=== PATIENT | female | born 1955 | race Caucasian/White ===

== ENCOUNTER 2022-07-15 07:26 | Outpatient (CLI) | payer MEDICARE, SELFPAY ==
--- NOTE | 2022-08-07 20:41 | WPDSLEEPSTUD ---
Sleep Study Date of Study: 07/15/22 Ordering Provider: Vanessa Patterson MD Interpreting Physician: Meghana Mitchell DO Sleep Study Type: Split Polysomnogram Height: 1.57 m Weight: 66.678 kg Body Mass Index: 26.9 Neck Circumference (inches): 14 [place]: 2 Reason for Sleep Study Loud snoring Sleep History The patient is a 67-year-old female with GERD, hypothyroidism, migraine, hyperlipidemia, chronic back pain, osteopenia and history of tobacco use that had a sleep study ordered by her primary care physician for evaluation of sleep apnea. The patient is currently retired. She rarely awakens from sleep short breath. She rarely awakens at night with heartburn, belching or cough. She constantly snores loud in others complain. She occasionally has trouble sleeping when she has a cold. She rarely wakes up gasping for air throughout the night. She frequently has breathing problems at night observed by herself or others. She occasionally sweats excessively at night. She rarely falls asleep during the day and never while driving. She denies having sleep paralysis. She rarely experiences loss of muscle tone when extremely emotional. She denies having trouble at school or work due to sleepiness. She rarely experiences vivid dreamlike scenes upon awakening or falling asleep. He denies feeling afraid of going to sleep. She occasionally has nightmares. She occasionally remembers her dreams. She constantly has thoughts racing through her mind. She rarely feels sad or depressed. She frequently has anxiety. She occasionally has muscular tension. She occasionally notices parts of her body jerk. She constantly kicks during the night. She frequently has crawling and aching feelings in her legs and occasionally has leg pain during the night. She occasionally grinds her teeth during sleep and frequently awakens with morning jaw pain. She is constantly bothered by pain during the day but rarely awakened by pain during the night. She constantly wakes up feeling stiff in the morning. She constantly wakes up with sore or achy muscles. He constantly wakes up with pain in the neck, spine or other joints. She goes to bed at 9:00 p.m. on both weekdays and weekends. It takes her 6-7 hours to fall asleep. She rarely wakes up throughout the night. If she awakens, she will use the restroom and is able to fall back asleep within a few minutes. She wakes up between 9-10 a.m. on both weekdays and weekends. She typically gets 6 hours of sleep or less per night. She will stay in bed for a few minutes after waking up in the morning. She currently lives with her significant other. She does not consume any caffeinated beverages within 2 hours of bedtime. She does not engage in physical exercise before bedtime. She will watch television before falling asleep. She denies taking naps in the afternoon or the evening. She drinks 1 cup of caffeinated beverage per day. She quit smoking cigarettes 4 years ago. She rarely drinks alcohol. She denies recreational drug use. FORMERLY [facility] Past Medical History Medical History Anemia Chronic bilateral low back pain with bilateral sciatica Gastroesophageal reflux disease without esophagitis Hypothyroidism Migraine Mixed hyperlipidemia Osteopenia Overweight (BMI 25.0-29.9) Surgical History Surgical History H/O dilation and curettage (~1978) History of tonsillectomy (~1972) Family History Family History Mother Patient's mother is , Onset Age: 35 Father Patient's father is in good health Sibling Patient's sister is in good health Patient's brother is , Onset Age: 30 Social History Social History Smoking status: Former smoker Second cornejo
[2022-08-07 20:46] VITALS: BMI 26.9
== END 2022-07-16 08:11 | disposition home or self-care (01) ==
PROVIDERS: PCP Family Medicine; Visit Provider Family Medicine
DX: G47.30 Sleep apnea, unspecified (principal); G25.81 Restless legs syndrome; G47.33 Obstructive sleep apnea (adult) (pediatric)
CPT/HCPCS: 95811

== ENCOUNTER 2022-09-02 14:45 | Outpatient (CLI) | payer MEDICARE, SELFPAY ==
--- NOTE | ~2022-09-02 | MM_ITS ---
EXAMINATION: MM screening macey BI w terri HISTORY: Screening TECHNIQUE: Craniocaudal and mediolateral oblique 3-D tomosynthesis images were obtained and synthetic 2-D images were generated. CAD analysis was submitted and interpreted. COMPARISON: Comparison to multiple prior studies sequentially, with oldest reviewed study dated 11/14. BREAST PARENCHYMAL COMPOSITION: The breasts are almost entirely fatty. FINDINGS: There is no evidence of suspicious mass, calcification, or architectural distortion to sugg est malignancy in either breast. There has been no suspicious interval change. IMPRESSION: 1. No mammographic evidence of malignancy. 2. Recommend routine screening mammography in one year. BI-RADS Category 1: Negative Reviewed, dictated and finalized at location B. NT ONBOARDING ANALYST
== END 2022-09-02 14:46 | disposition home or self-care (01) ==
LOC: ANHIMG 14:47
PROVIDERS: PCP Family Medicine; Visit Provider Family Medicine
DX: Z12.31 Encounter for screening mammogram for malignant neoplasm of breast (principal)
CPT/HCPCS: 77063; 77067

== ENCOUNTER 2023-01-09 15:01 | Outpatient (CLI) | payer MEDICARE, SELFPAY ==
--- NOTE | ~2023-01-09 | XR_ITS ---
EXAMINATION: XR wrist LT min 3V DATE: 01/09/2023 15:51 INDICATION: Localized swelling, mass and lump, left wrist. TECHNIQUE: 4 views of left wrist were obtained. COMPARISON: None. FINDINGS: Bone alignment is normal. No fracture. Joint spaces are normal. IMPRESSION: 1. Normal left wrist. Reviewed, dictated and finalized at location A. IMPRESSION: 1. Normal left wrist.
--- NOTE | ~2023-01-09 | US_ITS ---
EXAMINATION: US carotid duplex BI DATE: 01/09/2023 15:51 INDICATION: Mixed hyperlipidemia TECHNIQUE: Grayscale, color Doppler, and pulsed Doppler images of the cervical carotid arteries were obtained. The degree of vessel stenosis is placed in one of the following categories: normal, <50%, 5 0-69%, >=70% but less than near-occlusion, near-occlusion, or total occlusion. Note that percent sten osis relative to normal distal artery lumen diameter is indirectly measured from velocity measurement s as described by Ross, et al. Radiology 2003; 229:340-346. COMPARISON: None. FINDINGS: RIGHT: The right common carotid artery (CCA) peak systolic velocity (PSV) is 109 cm/s. The right internal ca rotid artery (ICA) PSV is 123 cm/s. The right ICA end-diastolic velocity (EDV) is 29 cm/s. The right ICA/CCA PSV ratio is 1.1. Grayscale and color Doppler images yield an estimate of <50% diameter reduc tion from plaque in the ICA. The external carotid artery (ECA) PSV is 144 cm/s. There is antegrade fl ow in the right vertebral artery. LEFT: The left CCA PSV is 137 cm/s. The left ICA PSV is 77 cm/s. The left ICA EDV is 17 cm/s. The left ICA/ CCA PSV ratio is 0.7. Grayscale and color Doppler images yield an estimate of <50% diameter reduction from plaque in the ICA. The ECA PSV is 124 cm/s. There is antegrade flow in the left vertebral arter y. IMPRESSION: 1. <50% stenosis in the right internal carotid artery. 2. <50% stenosis in the left internal carotid artery. Reviewed, dictated and finalized at location A.
--- NOTE | ~2023-01-09 | XR_ITS ---
EXAMINATION: XR wrist RT min 3V DATE: 01/09/2023 15:51 INDICATION: Localized swelling, mass and lump, right wrist. TECHNIQUE: 4 views of right wrist were obtained. COMPARISON: None. FINDINGS: Bone alignment is normal. No fracture. There is mild osteoarthritis of first carpometacarpa l joint. IMPRESSION: 1. Mild osteoarthritis of first carpometacarpal joint. Reviewed, dictated and finalized at location A.
--- NOTE | 2023-01-09 15:55 | ECG_ITS ---
Measurements Intervals [place] Rate: 72 P: 51 RI: 159 QRS: 31 QRSD: 81 T: 38 QT: 380 QTc: 419 Interpretive Statements SINUS RHYTHM NORMAL ECG NO PREVIOUS ECG AVAILABLE FOR COMPARISON Electronically Signed On 01-10-2023 14:34:00 CDT by Minesh Reaves M.D.
== END 2023-01-09 15:02 | disposition home or self-care (01) ==
PROVIDERS: PCP Family Medicine; Visit Provider Family Medicine
DX: E78.2 Mixed hyperlipidemia (principal); Z82.49 Family history of ischemic heart disease and other diseases of the circulatory system; R22.30 Localized swelling, mass and lump, unspecified upper limb; Z82.3 Family history of stroke; R20.8 Other disturbances of skin sensation
CPT/HCPCS: 73110; 93005; 93880

== ENCOUNTER 2023-02-20 01:14 | Day surgery (SDC) | payer MEDICARE, SELFPAY ==
[2023-02-08 14:29] VITALS: BMI 27.5
--- NOTE | 2023-02-19 19:04 | PM.HPGS ---
History of Present Illness History of Present Illness Consent: Risks, benefits, and alternatives have been discussed and questions answered. Patient agrees to proceed with procedure. Chief complaint: neoplasm screening Narrative: Mami Richard is a 67 year old female who has noticed occasionally food getting hung up on the way down.? This mostly occurs with meat.? She will drink some liquid and it will force it down.? She has not had actually stop eating for a significant amount of time because of that . She is also due for colon cancer screening. Review of Systems Review of Systems: All systems reviewed & are unremarkable except as noted in HPI and below PMFSH Past Medical History Medical History Anemia Chronic bilateral low back pain with bilateral sciatica Gastroesophageal reflux disease without esophagitis Hypothyroidism Migraine Mixed hyperlipidemia Osteopenia Overweight (BMI 25.0-29.9) Surgical History Surgical History H/O dilation and curettage (~1978) History of tonsillectomy (~1972) Family History Family History Mother Patient's mother is , Onset Age: 35 Father Patient's father is in good health Sibling Patient's sister is in good health Patient's brother is , Onset Age: 30 Social History Social History Years smoked: 42 Smoking status: Former smoker Tobacco type: cigarettes Second hand tobacco smoke exposure: No Smoking end date: 09/18/17 Alcohol intake: never Alcohol use details: 1 drink yearly Substance use: never Substance use type: does not use Lack of Transportation: No Lack of Food: Never True Current Housing: I Have Housing Concerned About Future Housing: No Difficulty Paying Gas/Electric Bills: No Difficulty Paying for Meds: No Currently Unemployed: No Education: High School Diploma/GED Difficulty w/ Childcare or Family Care: No Living arrangements: alone Occupation/Education: retired Gender identity (if verbalized by the patient): Female Spiritual care concerns: No Agree to blood products: Yes Meds Home Medications and Allergies Home Medications Medication Instructions Recorded Confirmed Type levothyroxine 100 mcg tablet 100 mcg PO DAILY 09/03/19 02/08/23 History aspirin 81 mg tablet,delayed 81 mg PO DAILY 06/21/22 02/08/23 History release ergocalciferol (vitamin D2) 1,250 1,250 mcg PO WEEKLY #12 caps 06/22/22 02/08/23 Rx mcg (50,000 unit) capsule (Vitamin D2) ketoconazole 2 % shampoo 1 applic topical 2XW #120 mL 01/03/23 02/08/23 Rx Allergies Allergy/AdvReac Type Severity Reaction Status Date / Time No Known Allergies Allergy Unknown Verified 02/20/23 07:27 Exam Const: General: alert Orientation/consciousness: patient oriented x3 Resp: Auscultation: clear to auscultation bilaterally Cardio: Rhythm: regular rhythm GI: GI Palp: Yes Soft to palpation and No Tenderness to palpation present (GI) Neuro: General: patient oriented x3 Assessment and Plan Assessment and plan (1) Dysphagia: Code(s): R13.10 - Dysphagia, unspecified Status: Acute Assessment and Plan: EGD with possible biopsy or dilatation or cautery. (2) Encounter for screening colonoscopy: Code(s): Z12.11 - Encounter for screening for malignant neoplasm of colon Status: Acute Assessment and Plan: Colonoscopy with possible biopsy or polypectomy or cautery or injection of substances.
[2023-02-20 07:28] VITALS: BP 125/53; PULSE 78; RESP 18; TEMP 36.5; O2SAT 99
[2023-02-20] MEDS: LACTATED RINGERS 1,000 ML 150 ML IV CONT (07:36)
--- NOTE | 2023-02-20 08:30 | SUR.OPER ---
EGD: [id number] COLON: [id number]
[2023-02-20] MEDS: SIMETHICONE ORAL SUSPENSION 20 MG/0.3 ML 30 ML BOTTLE 0.6 ML IRRIGATION (08:44)
[2023-02-20 08:53] VITALS: BP 100/60; PULSE 86; RESP 24; O2SAT 99
[2023-02-20 09:03] VITALS: BP 102/42; PULSE 68; RESP 20; O2SAT 99
[2023-02-20 09:13] VITALS: BP 114/72; PULSE 65; RESP 15; O2SAT 96
--- NOTE | 2023-02-20 11:50 | SUR.PREOP ---
Spoke with Cary in [facility]'s office, states that Mami does have pre approval for the EGD and is okay to proceed with procedure.
== END 2023-02-20 09:23 | disposition home or self-care (01) ==
PROVIDERS: PCP Family Medicine; Visit Provider Internal Medicine Gastroenterology
PROC: 0DJD8ZZ Inspection of Lower Intestinal Tract, Via Natural or Artificial Opening Endoscopic (ICD-10-PCS; CPT 45378; principal; 2023-02-20 08:30)
DX: Z12.11 Encounter for screening for malignant neoplasm of colon (principal); D12.5 Benign neoplasm of sigmoid colon; K57.30 Diverticulosis of large intestine without perforation or abscess without bleeding; K64.8 Other hemorrhoids; R13.10 Dysphagia, unspecified; K21.9 Gastro-esophageal reflux disease without esophagitis; K29.60 Other gastritis without bleeding; E03.9 Hypothyroidism, unspecified; M85.80 Other specified disorders of bone density and structure, unspecified site
CPT/HCPCS: 45385; 43239; 87081; 88305; J2704; J7120

== ENCOUNTER 2023-09-08 08:44 | Outpatient (CLI) | payer MEDICARE, SELFPAY ==
[2023-09-08 09:35] LABS: Basophils Percent Auto 0.5 % (0.2-1.2); Eosinophils Absolute Auto 0.2 K/mm3 (0-0.3); Eosinophils Percent Auto 2.6 % (0-4.4); Hematocrit 45.2 % (37.0-47.0); Hemoglobin 15.2 g/dL (12.0-15.0); Immature Granulocyte Absolute 0.04 K/mm3 (0.00-0.031); Immature Granulocyte Percent A 0.5 % (0-0.5); Lymphocytes Absolute Auto 2.71 K/mm3 (0.9-3.2); Lymphocytes Percent Auto 33.5 % (18.3-44.2); Mean Corpuscular HGB Conc 33.6 g/dl (32-36); Mean Corpuscular Hemoglobin 30.6 pg (26-34); Mean Corpuscular Volume 91.1 fl (80-100); Mean Platelet Volume 10.2 fl (7.4-10.4); Monocytes Absolute Auto 0.6 K/mm3 (0.1-0.6); Monocytes Percent Auto 7.2 % (2.6-8.5); Neutrophils Absolute Auto 4.5 K/mm3 (1.3-6.7); Neutrophils Percent Auto 55.7 % (45.5-73.1); Platelet Count Result 267 k/mm3 (150-375); Red Blood Count 4.96 M/mm3 (4.2-5.4); Red Cell Distribution Width 13.1 % (11.5-14.5); White Blood Count 8.1 K/mm3 (4.5-10.0)
[2023-09-08 09:45] LABS: Alanine Aminotransferase 48 U/L (6-35); Albumin Level 4.7 g/dL (3.5-5.1); Alkaline Phosphatase 76 U/L (38-126); Anion Gap 10 mmol/L (8-16); Aspartate Amino Transferase 32 U/L (14-36); Bilirubin,Total 0.5 mg/dL (0.2-1.3); Blood Urea Nitrogen 10 mg/dL (7-17); Calcium 9.6 mg/dL (8.4-10.2); Carbon Dioxide 25 mmol/L (22-30); Chloride 105 mmol/L (98-107); Cholesterol 246 mg/dL (0-200); Estimated Glomerular Filt Rate > 60; Glucose 101 mg/dL (65-110); HDL Direct 39 mg/dL; Potassium 4.7 mmol/L (3.4-5.0); Sodium 140 mmol/L (137-145); Triglycerides 280 mg/dL (<150)
[2023-09-08 09:56] LABS: LDL Cholesterol Direct 145 mg/dL
[2023-09-08 10:49] LABS: Vitamin D 25 Hydroxy 20.6 ng/mL
[2023-09-08 11:03] LABS: Thyroid Stimulating Hormone Reflex 0.221 uIU/mL (0.465-4.68)
[2023-09-08 13:16] LABS: Free T4 Free Thyroxine Reflex 1.43 ng/dL (0.78-2.19)
[2023-09-08 14:06] LABS: Total Triiodothyronine (T3) 1.88 NG/ML (0.97-1.69)
== END 2023-09-08 08:45 | disposition home or self-care (01) ==
LOC: ANHLAB 08:45
PROVIDERS: PCP Family Medicine; Visit Provider Family Medicine
DX: E78.2 Mixed hyperlipidemia (principal); E03.9 Hypothyroidism, unspecified; R53.83 Other fatigue; E55.9 Vitamin D deficiency, unspecified; E53.8 Deficiency of other specified B group vitamins
CPT/HCPCS: 36415; 80053; 80061; 82306; 82607; 84439; 84443; 84480; 85025

== ENCOUNTER 2023-09-14 14:25 | Outpatient (CLI) | payer MEDICARE, SELFPAY ==
--- NOTE | ~2023-09-14 | MM_ITS ---
EXAMINATION: MM screening macey BI w terri HISTORY: Screening mammogram TECHNIQUE: Craniocaudal and mediolateral oblique 3-D tomosynthesis images were obtained and synthetic 2-D images were generated. CAD analysis was submitted and interpreted. COMPARISON: 09/02/2022, 10/07/2019 bilateral screening mammogram examinations BREAST PARENCHYMAL COMPOSITION: The breasts are almost entirely fatty. FINDINGS: There is no evidence of suspicious mass, calcification, or architectural distortion to sugg est malignancy in either breast. There has been no suspicious interval change. IMPRESSION: 1. No mammographic evidence of malignancy. 2. Recommend routine screening mammography in one year. BI-RADS Category 1: Negative Reviewed, dictated and finalized at location A. COMMENTATOR
== END 2023-09-14 14:26 | disposition home or self-care (01) ==
LOC: ANHIMG 14:26
PROVIDERS: PCP Family Medicine; Visit Provider Family Medicine
DX: Z12.31 Encounter for screening mammogram for malignant neoplasm of breast (principal)
CPT/HCPCS: 77063; 77067

== ENCOUNTER 2024-03-14 08:02 | Outpatient (CLI) | payer MEDICARE, SELFPAY ==
--- NOTE | ~2024-03-14 | CT_ITS ---
EXAMINATION:CT lung screening DATE: 03/14/2024 08:28 INDICATION: Personal history of nicotine dependence. Smoker who quit 15 years ago with 86 pack year h istory. TECHNIQUE: Computed tomography (CT) of the chest was performed without intravenous contrast. Automate d exposure control and iterative reconstruction technique were employed. The dose-length product (DLP ) was 113.00 mGy-cm. COMPARISON: CT abdomen 06/23/2008 FINDINGS: There is moderate emphysema. There is mild atelectasis bilaterally. There is a 4 mm nodule in left lower lobe, stable from 06/23/2008. Calcified left lung nodules are consistent with old granul omas disease. No pleural effusion. The heart size is normal. There are coronary artery calcifications . No pericardial effusion. There is diffuse hepatic steatosis. Calcifications in the spleen are consi stent with old granulomatous disease. There are changes of anterior fusion procedure in cervical spin e. There is moderate thoracic spondylosis. IMPRESSION: 1. Lung-RADS category 2: Benign appearance or behavior. Continue annual screening with noncontrast lo w-dose chest CT in 12 months. Reviewed, dictated and finalized at location A. IMPRESSION: 1. Lung-RADS category 2: Benign appearance or behavior. Continue annual screeni ng with noncontrast low-dose chest CT in 12 months.
== END 2024-03-14 08:03 | disposition home or self-care (01) ==
PROVIDERS: PCP Family Medicine; Visit Provider Family Medicine
DX: Z12.2 Encounter for screening for malignant neoplasm of respiratory organs (principal); Z87.891 Personal history of nicotine dependence
CPT/HCPCS: 71271

== ENCOUNTER 2024-07-10 14:36 | Outpatient (CLI) | payer MEDICARE, SELFPAY ==
--- NOTE | ~2024-07-10 | DEXA_ITS ---
Bone Density Report Name: JENNIFER GUTIERRES Age: 69 Sex: Female Ethnicity: White Date of : 1955 Indication: osteopenia; prior fracture; Referring Provider: RORY KIMBROUGH Study: Bone densitometry was performed. Exam Date: July 10, 2024 Accession number: [id number] Bone Density: Region BMD T-score Z-score Classification AP Spine(L1, L2) 0.940 -0.4 1.4 Normal Femoral Neck (Left) 0.627 -2.0 -0.4 Osteopenia Total Hip (Left) 0.790 -1.2 0.1 Osteopenia Femoral Neck (Right) 0.629 -2.0 -0.3 Osteopenia Total Hip (Right) 0.787 -1.3 0.1 Osteopenia Total Hip Mean 0.788 -1.3 0.1 Osteopenia World Health Organization criteria for BMD impression classify patients as: Normal (T-score at or above -1.0), Osteopenia (T-score between -1.0 and -2.5), or Osteoporosis (T-score at or below -2.5). 10-year Fracture Risk: FRAX not reported because: Prior hip or vertebral fracture Previous Exams: Region Exam Age BMD T-score BMD Change BMD Change Date g/cm2 vs Baseline vs Previous AP Spine (L1-L2) 07/10/2024 69 0.940 -0.4 -0.016 (-1.7%) 0.105 (12.5%)* 10/11/2019 64 0.835 -1.3 -0.121 (-12.6% -0.121 (-12.6% 08/08/2016 61 0.956 -0.2 Total Hip(Left) 07/10/2024 69 0.790 -1.2 -0.036 (-4.4%) -0.036 (-4.4%) 10/11/2019 64 0.826 -0.9 0.000 (0.0%) 0.000 (0.0%) 08/08/2016 61 0.826 -0.9 Total Hip(Right) 07/10/2024 69 0.787 -1.3 -0.040 (-4.8%) -0.001 (-0.2%) 10/11/2019 64 0.788 -1.3 -0.038 (-4.6%) -0.038 (-4.6%) 08/08/2016 61 0.827 -0.9 *Denotes significance at 95% confidence level, LSC for AP Spine = 0.022 g/cm2, LSC for Total Hip = 0.027 g/cm2 Clinical Information Provided by Patient: Have had a previous hip or vertebral fracture Has had a low trauma fracture Patient maximum height was 63.0 Menopause Age: 42 Does not regularly consume dairy products Drinks caffeinated beverages Onset of menses at age 16 Number of children 3 Impression: The patient has low bone mass, based on the Left Femoral Neck T-score. The patient has risk factors, including: previous fracture. The BMD for the Total Hip(Left) decreased, changing by -4.4% since the last DXA exam. Discussion: INCREASED RISK OF FRACTURE DUE TO HISTORY OF FRACTURE. The patient's previous fracture puts the patient at high risk of a future fracture. In untreated patients, the risk of osteoporotic fracture increases approximately two-fold for each 1.0 SD decrease in T-score. Low bone density is not the only risk factor for fracture; also consider factors such as patient's age, frailty or poor health, risk of falling, risk of injury, previous osteoporotic fracture, family history of osteoporosis, cigarette smoking, low body weight, etc. Not everyone with a low trauma fracture has osteoporosis; osteomalacia and other metabolic bone disorders should also be considered. Patients who have osteoporosis should be evaluated for specific diseases and conditions (secondary causes) that may cause or contribute to bone loss and fracture risk. National Osteoporosis Foundation (NOF) recommends pharmacologic intervention for patients with a prior hip or vertebral fracture regardless of BMD T-score. The patient should follow a healthful lifestyle (good nutrition with adequate calcium and vitamin D, and appropriate weight-bearing exercise). Follow-Up: Consider a repeat BMD and Vertebral Fracture Assessment (VFA) exam in 2 years or sooner if medically necessary, to reassess this patient's status. Reported by: DESTINI on 07/10/2024 3:11:00 PM. Reviewed, dictated and finalized at location AJolly SARAH
== END 2024-07-10 14:37 | disposition home or self-care (01) ==
LOC: ANHIMG 14:39
PROVIDERS: PCP Family Medicine; Visit Provider Family Medicine
DX: Z78.0 Asymptomatic menopausal state (principal); M85.852 Other specified disorders of bone density and structure, left thigh; M85.851 Other specified disorders of bone density and structure, right thigh
CPT/HCPCS: 77080

== ENCOUNTER 2024-08-30 11:37 | Outpatient (CLI) | payer MEDICARE, SELFPAY ==
[2024-08-30 12:40] LABS: Alanine Aminotransferase 37 U/L (6-35); Albumin Level 4.7 g/dL (3.5-5.1); Alkaline Phosphatase 68 U/L (38-126); Anion Gap 5 mmol/L (4-12); Aspartate Amino Transferase 31 U/L (14-36); Bilirubin,Total 0.5 mg/dL (0.2-1.3); Blood Urea Nitrogen 10 mg/dL (7-17); Calcium 9.5 mg/dL (8.4-10.2); Carbon Dioxide 29 mmol/L (22-30); Chloride 106 mmol/L (98-107); Cholesterol 234 mg/dL (0-200); Estimated Glomerular Filt Rate > 60; Glucose 95 mg/dL (65-110); HDL Direct 29 mg/dL; Potassium 4.2 mmol/L (3.4-5.0); Sodium 140 mmol/L (137-145); Triglycerides 233 mg/dL (<150)
--- OUTSIDE RECORDS SUMMARY | 2024-08-30 12:43 | XMS_ITS | Data Portability ---
Author Organization [facility] [place] Address [address] [place] [address] Care Team Providers Care Husbandry Person Name Role Phone KAYLANRORY Primary Care Provider Assessment Encounter Date Assessment Date Assessment LastModified by Organization Details LastModified Time 04/15/2021 04/15/2021 Time spent in visit is a total of 15 mins with at least 50% of visit consisting of counseling and review of plan of care. Additional precautionary measures were taken to minimize potential exposure to the Covid-19 virus during this patient? s visit, including available hand manager science upon arrive, temperature check and being asked a series of screening questions. All staff wore face coverings during this encounter, as well as provided additional cleaning and sanitizing of all surfaces, including countertops, pens, chairs, door handles, light switches, etc, prior to and following the patient? s visit. [email or web address] Not available 04/27/2021 16:09:21 Plan of Treatment Reminders Order Date Submit Date Provider Last Modified By Organization Details Last Modified Time Details Appointments None recorded. Lab None recorded. Referral gynecologis t referral - Please reach out to patient to schedule her for an appt, she is expecting the call. Please find attached her demographic s and office visit notes. If you have any questions or require further information , please contact me at [phone]. Thank you, SRI Mendez 2020 021 [email or web address] Crystal Haskins MD - [facility], [address] [facility], [address], [place], [address], 2 13:56:49 Procedures None recorded. Surgeries None recorded. Imaging None recorded. Medication Orders Estrace 0.01% (0.1 mg/gram) vaginal cream [address] [facility], [address] [place], [address], 13:40:43 nystatin-tr iamcinolone 100,000 unit/gram-0 .1 % topical ointment [address] [facility], [facility] [place], [address], 13:41:09 nystatin-tr iamcinolone 100,000 unit/gram-0 .1 % topical ointment 2019 [facility], [address] [place] [address], [address], 1 13:42:55 Estrace 0.01% (0.1 mg/gram) vaginal cream 2020 [facility] [address], [address] [place] [address], [address], 14:12:36 nystatin-tr iamcinolone 100,000 unit/gram-0 .1 % topical ointment 2020 [facility] [address], [address] [place] [address], [address], 14:12:33 Patient TargetsNo targets recorded. Patient InstructionsNo instructions recorded. Reason for Referral Clinical Nursing Manager Referral for Ge nital lichen sclerosus Lichen Sclerosis Please reach out to patient to schedule her for an appt, she is expecting the call. Please find attached her demographics and office visit notes. If you have any questions or require further information, please contact me at [phone]. Thank you, SRI Mendez Referring Physician: Iman Pond, FLUX PLANT OPERATOR, Encounter Date: 08/30/2021 Results Created Date Observation Date Name Description Value Unit Range Abnormal Flag Note LastModifiedBy Organization Detail LastModifiedTime 04/27/20 20 04/29/2020 pap, LB Pap test thin prep Negati ve for Intrae pithel ial Lesion or Malign richy normal ACCES SANJU #: [id number] Sourc e: Cervi stephen/E ndoce rvica l LMP: 09/18 Date Taken : 04/27 Speci men Type: ThinP rep Vial Date Repor rosa: 2019 Clini stephen Data: Cytot ech: Rachelle Miller ingrid CT( CP) Date Repor rosa: 2019 Speci men Adequ acy: Satis facto ry for evalu ation Gener al Categ oriza tion: NEGAT KAYLYN FOR INTRA EPITH ELIAL LESIO N OR MALIG ALEX Inter preta tion/ Resul t: Atrop hy The follo wing tests have been order ed as reque sted and a separ ate repor t will be issue d: Vagin itis Panel This speci men has been sherrie zed by the ThinP rep Imagi ng Syste m, an inter activ e compu ter syste m which ari ts the lab in the scree kanwal of ThinP rep Pap Test slide s. Follo wing imagi ng, the slide was revie wed by a Cytot echno logis t and/o r Patho logis t. D N A A S S A Y S R E P O R T TEST NAME RESUL TS ----- ---- ----- -- HPV High Risk Scree n (TMA) ThinP rep Vial The human papil lomav irus (HPV) High Risk Scree n is an FDA-a pprov ed in-vi tro ampli fied nucle ic acid test for the quali tativ e detec tion of E6/E7 viral mRNA. Resul ts shoul d be corre lated with patie nt prese ntati on, histo ry, cervi stephen cytol ogy and other clini stephen and labor atory findi ngs. See https ://Partnerbyte/s ites/ defau lt/fi les/2 018-0 3- [id number] _002_ 01.pd f for [facility] er infor luis carlos n. Test perfo rmed by [employer], d/b/a [facility] rou, [address], [place] [address] , Faustino Jackson ra, , Labor atory Direc tor. HPV High Risk *HPV NOT DETEC ROSA (TYPE S 16, 18, 31, 33, 35, 39, 45, 51, 52, 56, 58, 59, 66, 68) *HPV: The human papil lomav irus (HPV) High Risk Blayne madrigal is an FDA-a pprov ed in-vi tro ampli fied nucle ic acid test for the quali tativ e detec tion of E6/E7 viral mRNA. [facility] shoolegario d be corre lated with patie nt prese ntati on, histo ry, cervi stephen cytol ogy and other clini stephen and labor atory findi ngs. See https ://Partnerbyte/s ites/ defau lt/fi -0 3/- [id number] _002_ 01.pd f for [facility] er infor luis carlos n. Test perfo rmed by [employer], d/b/a [facility], [address], [place] [address] , Faustino Jackson ra, DO, Labor atory Dire tor. End of Repor t Techn ical servi celso provi ded by [employer], d/b/a [facility], [address] [place] [address] Jason Alvarez MD, Labor Huitongda Dire tor. Case revie wed and diagn osis rende red at [employer], d/b/a [facility], [address] [place] [address] Jason Alvarez MD, Labor atory Direc tor. CONFI DENTI AL Not Available [facility]) [address] [facility] [address], [place], [address], 04/29/2020 19:22:22 04/27/20 20 04/29/2020 bacte rial vagin osis + vagin itis panel , vagin al chadd sp. Not Detect ed normal Trich omona s vagin chelo: DNA testi ng perfo rmed by Trans cript ion Media rosa Ampli ficat ion (TMA) These resul ts shoul d be inter prete d in light of all clini stephen and labor atory findi ngs. This assay is highl y accur ate, but rare false posit kaylyn and negat kaylyn resul ts may occur . Posit kaylyn resul ts in low preva lence popul ation s may requi re re-ev aluat ion. A negat kaylyn resul t does not precl ude a possi ble infec tion due to a speci men inade quacy or sampl ing error . Test perfo rmed by [facility], d/b/a Path kyle, [address] [facility] [address], [place] [address] , Faustino Jackson ra, DO, Labor atory Direc tor. Rosaleen chicoll a vagin chelo, Dasha da speci es: Genom ic DNA is isola rosa from patie nt speci mens by stand sara labor atory techn iques and sherrie zed using custo m OpenA rray plate s, perfo rmed on the Quant Studi o 12K Flex Real Time PCR syste m. A posit kaylyn resul t is provi ded for patho genic bacte asia, virus and/o r funga l speci es based on detec tion of ampli ficat ion produ cts. Carole l vagin al chelsey resul ts of Carole l or Ogema rosa are deter mined by calcu latin g the ratio of the organ ism to the total bacte asia prese nt in the speci men, and ivan ring that ratio to a PathG roup patie nt popul ation . Overa ll resul ts of Carole l, Borde rline and Abnor mal are deter mined using a proba bilit y model which was devel oped by an exten sive sherrie sis and integ ratio n of clini stephen thres holds for marke r organ isms on a large set of sympt omati c & asymp tomat ic speci mens. Patie nt popul ation s with diffe rent demog raphi cs from the PathG rou model popul ation may have diffe rent indic ator organ isms with diffe rent relat kaylyn ratio s, which would influ ence the final resul ts. Resul ts shoul d be inter prete d in the samreen xt of all clini stephen and labor atory findi ngs. The test was devel oped and its perfo rmanc e libby cteri stics deter mined by [employer], [employer] d/b/a [employer]. It has not been clear ed or appro kwaku by the U.S. Food and Drug Admin istra tion. The FDA has deter mined that such clear ance or appro gemini is not neces dilma. Perti nent refer ence inter vals are avail able from the [employer] on reque st. Test( s) perfo rmed by [employer], [employer], d/b/a efw-suhl, [address], [place] [address] , Faustino Jackson ra, DO, Labor atory Dire tor. Not Available [facility]) [address] [facility] [address], [place], [address], 04/29/2020 19:22:22 04/27/20 20 04/29/2020 bacte rial vagin osis + vagin itis panel , vagin al gardnerella vaginalis Not Detect ed normal Trich omona s vagin chelo: DNA testi ng perfo rmed by Trans cript ion Media rosa Ampli ficat ion (TMA) These resul ts shoul d be inter prete d in light of all clini stephen and labor atory findi ngs. This assay is highl y accur ate, but rare false posit kaylyn and negat kaylyn resul ts may occur . Posit kaylyn resul ts in low preva lence popul ation s may requi re re-ev aluat ion. A negat kaylyn resul t does not precl ude a possi ble infec tion due to a speci men inade quacy or sampl ing error . Test perfo rmed by [facility], d/b/a PathG roup, [address], [place] [address] , Faustino Jackson ra, DO, Labor atory Direc tor. Gardn erell a vagin chelo, Dasha da speci es: Genom ic DNA is isola rosa from patie nt speci mens by stand sara labor atory techn iques and sherrie zed using custo m OpenA rray plate s, perfo rmed on the [employer] Studi o 12K Flex Real Time PCR syste m. A posit kaylyn resul t is provi ded for patho genic bacte asia, virus and/o r funga l speci es based on detec tion of ampli ficat ion produ cts. Carole l vagin al chelsey resul ts of Carole l or Ogema rosa are deter mined by calcu latin g the ratio of the organ ism to the total bacte asia prese nt in the speci men, and ivan ring that ratio to a PathG roup patie nt popul ation . Overa ll resul ts of Carole l, Borde rline and Abnor mal are deter mined using a proba bilit y model which was devel oped by an exten sive sherrie sis and integ ratio n of clini stephen thres holds for marke r organ isms on a large set of sympt omati c & asymp tomat ic speci mens. Patie nt popul ation s with diffe rent demog raphi cs from the PathG roup model popul ation may have diffe rent indic ator organ isms with diffe rent relat kaylyn ratio s, which would influ ence the final resul ts. Resul ts shoul d be inter prete d in the samreen xt of all clini stephen and labor atory findi ngs. The test was devel oped and its perfo rmanc e libby cteri stics deter mined by [employer] [employer] d/b/a PathG rou. It has not been clear ed or appro kwaku by the U.S. Food and Drug Admin istra tion. The FDA has deter mined that such clear ance or appro gemini is not neces dilma. Perti nent refer ence inter vals are avail able from the labor atory on reque st. Test( s) perfo rmed by [employer], [employer], d/b/a PathRezdy roup, [address], [place] [address] , Faustino Jackson ra, DO, Labor atory Direc tor. Not Available [facility] ([facility]) [address], [place], [address], 04/29/2020 19:22:22 04/27/20 20 04/29/2020 bacte rial vagin osis + vagin itis panel , vagin al trichomonas vaginalis, aptima (panther) NOT DETECT ED normal Trich omona s vagin chelo: DNA testi ng perfo rmed by Trans cript ion Media rosa Ampli ficat ion (TMA) These resul ts shoul d be inter prete d in light of all clini stephen and labor atory findi ngs. This assay is highl y accur ate, but rare false posit kaylyn and negat kaylyn resul ts may occur . Posit kaylyn resul ts in low preva lence popul ation s may requi re re-ev aluat ion. A negat kaylyn resul t does not precl ude a possi ble infec tion due to a speci men inade quacy or sampl ing error . Test perfo rmed by [employer], [employer], d/b/a PathRezdy roup, [address], [place] [address] , Faustino Jackson ra, , Labor atory Direc tor. Gardn erell a vagin chelo, Dasha da speci es: Genom ic DNA is isola rosa from patie nt speci mens by stand sara labor atory techn iques and sherrie zed using custo m OpenA rray plate s, perfo rmed on the Quant Studi o 12K Flex Real Time PCR syste m. A posit kaylyn resul t is provi ded for patho genic bacte asia, virus and/o r funga l speci es based on detec tion of ampli ficat ion produ cts. Carole l vagin al chelsey resul ts of Carole l or Ogema rosa are deter mined by calcu latin g the ratio of the organ ism to the total bacte asia prese nt in the speci men, and ivan ring that ratio to a PathG roup patie nt popul ation . Overa ll resul ts of Carole l, Borde rline and Abnor mal are deter mined using a proba bilit y model which was devel oped by an exten sive sherrie sis and integ ratio n of clini stephen thres holds for marke r organ isms on a large set of sympt omati c & asymp tomat ic speci mens. Patie nt popul ation s with diffe rent demog raphi cs from the PathG roup model popul ation may have diffe rent indic ator organ isms with diffe rent relat kaylyn ratio s, which would influ ence the final resul ts. Resul ts shoul d be inter prete d in the samreen xt of all clini stephen and labor atory findi ngs. The test was devel oped and its perfo rmanc e libby cteri stics deter mined by [employer], [employer] d/b/a PathRob wright. It has not been clear ed or appro kwaku by the U.S. Food and Drug Admin istra tion. The FDA has deter mined that such clear ance or appro gemini is not neces dilma. Perti nent refer ence inter vals are avail able from the labor atory on reque st. Test( s) perfo rmed by [employer] [facility] [employer], [employer], d/b/a PathRob wright, [address], [place] [address] , Faustino Jackson ra, DO, Labor atory [facility] tor. Not Available [facility]) [address] [place] [address] [address], [place], [address], 04/29/2020 19:22:22 04/27/20 20 04/29/2020 HPV DNA, high- risk HPV high risk NOT DETECT ED normal The human papil lomav irus (HPV) High Risk Blayne madrigal is an FDA-a pprov ed in-vi tro ampli fied nucle ic acid test for the quali tativ e detec tion of E6/E7 viral mRNA. [facility] megan garcias be corre lated with bela gunderson prese ntati on, histo ry, cervi stephen cytol ogy and other clini stephen and labor atory findi ngs. See https ://Partnerbyte/s ites/ defau lt/fi les/2 018-0 3/AW- [id number] _002_ 01.pd f for latasha valladaresr luis carlos madrigal. Test perfo rmed by [facility], d/b/a PathG rouyung, [address] [facility] [address], [place] [address] , Faustino Jackson ra, DO, Labor atory [facility]. Not Available [facility]) [address] [place] [address] [address], [place], [address], 04/29/2020 19:22:23 04/27/20 20 04/30/2020 surgi stephen patho logy study surgical pathology View Report ACCES SANJU #: [id number] Bela nt Name: RADAMES RT, BETSY Ortiz M Age-S ex-DO B: 65y F [birth year] Proce dure Date: 04/27 Acces sanju Date: 2019 Pt Acct# : Repor t Date: 2019 Locat ion: OFFIC E Physi dustin( s): Mitch cruz P A T H O L O G Y R E P O R T DIAGN OSIS: Vulva , biops y: Liche noid derma titis , see note. Note: The diffe renti al diagn osis inclu aida liche n planu s-lik e kerat osis and liche n planu s, howev er, clini stephen corre latio n is requi red. Mo Gramajo MD elect eugenia chavarria hermelinda d 04/30 08:52 AM Gross Descr iptio n: One speci men recei kwaku in a singl e conta iner of forma kimberlee label ed Sandr a Stewa rt, vulva biops y is a 0.4 x 0.4 x 0.2 cm unori ented irreg ular porti on of skin. The skin surfa ce is day, scaly with no discr ete lesio ns ident ified . The surgi stepehn armida n is inked blue. The speci men is bisec rosa and entir moraima submi tted in casse tte 1A, 2/1A. (TMG, MP2,m bj) Micro scopi c Descr iptio n: Micro scopi c exami natio n is perfo rmed. 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 Case revie wed and diagn osis rende red at [facility] logis [employer], d/b/a PathoRb wright, [address], [place] [address] Kin Duran MD, Labor atorAvrio Solutions Company Limited Dire tor. CONFI DENTI AL Not Available [facility] ([facility]) [address], [place], [address], 04/30/2020 09:54:56 Result Notes None recorded. Procedures Surgical History Date Name Laterality Status Provider Name and Address Organization Details Recorded Time 08/22/20 20 Most Recent Bone Density completed [facility] 04/15/2021 13:40:28 04/27/20 20 Vulvar Biopsy completed Iman Pond [facility]- [address], [place], [address], [facility] 04/27/2020 15:18:52 04/27/20 20 Date of Last Pap Smear completed [facility] 08/30/2021 13:05:38 04/27/20 20 biopsy of vulva completed [facility] 08/30/2021 11:03:20 08/18/[address] [facility] 04/15/2021 13:40:28 07/28/20 19 Date of Last Colonoscopy completed [facility] 04/15/2021 13:40:[address] [facility] 04/27/2020 13:59:20 Dilation and Curettage completed [facility] 04/27/2020 13:59:24 Tubal Ligation completed [facility] 04/27/2020 13:59:30 Imaging Results None recorded. Procedure Notes None recorded. Medical Equipment None Reported. Allergies Allergen ID Allergen Name Allergen Category Reaction Reaction Severity Criticality Documentation Date Start Date Code Code System Note Provider Name and Address Organization Details Recorded Time 1649 Iodinated contrast media (substanc e) medicatio n Not available Not available Not available 04/27/2020 22033 2003 SNOMED [facility] 0 13:55:31 Medications Name Sig Start Date Stop Date Status Note LastModified by Organization Details LastModified Time amoxicillin 500 mg capsule TAKE 1 CAPSULE BY MOUTH EVERY 8 HOURS UNTIL GONE 04/15 completed Not Available Not Available Not Available fluconazole 100 mg tablet 04/15 completed Not Available Not Available Not Available triazolam 0.25 mg tablet TAKE 1 PILL BY MOUTH 1 HOUR PRIOR TO DENTAL SURGERY. BRING THE OTHER PILL WITH YOU TO THE DENTAL APPOINTME NT 04/15 completed Not Available Not Available Not Available ibuprofen 800 mg tablet 05/26 completed Not Available Not Available Not Available valacyclovi r 1 gram tablet TAKE 1 TABLET BY MOUTH THREE TIMES DAILY FOR 7 DAYS 04/15 completed Not Available Not Available Not Available cephalexin 250 mg capsule TAKE 1 CAPSULE BY MOUTH EVERY 8 HOURS FOR 10 DAYS 04/15 completed Not Available Not Available Not Available hydrocodone 5 mg-acetamin ophen 325 mg tablet TAKE 1 TABLET BY MOUTH EVERY 6 HOURS NEEDED FOR PAIN 04/15 completed Not Available Not Available Not Available gabapentin 400 mg capsule TAKE 1 CAPSULE BY MOUTH IN THE EVENING FOR 3 WEEKS 04/15 completed Not Available Not Available Not Available Euthyrox 100 mcg tablet TAKE 1 TABLET BY MOUTH ONCE DAILY BEFORE BREAKFAST active Not Available Not Available No t Available nystatin-tr iamcinolone 100,000 unit/gram-0 .1 % topical ointment APPLY TOPICALLY TO VULVA TWICE DAILY FOR 4 WEEKS THEN ONCE A DAY FOR 4 WEEKS THEN 2 3 TIMES WEEKLY FOR MAINTENAN CE active Not Available Not Available No t Available oxycodone-a cetaminophe n 5 mg-325 mg tablet 05/26 completed Not Available Not Available Not Available dexamethaso ne 4 mg tablet TAKE 2 TABLETS BY MOUTH ON DAY ONE; TAKE 2 TABLETS BY MOUTH ON DAY TWO; TAKE 1 TABLET BY MOUTH ON DAY THREE 04/15 completed Not Available Not Available Not Available nystatin-tr iamcinolone 100,000 unit/g-0.1 % topical cream APPLY CREAM TOPICALLY TWICE DAILY 08/30 completed Not Available Not Available Not Available gabapentin 300 mg capsule TAKE 1 CAPSULE BY MOUTH ONCE DAILY AT BEDTIME 04/15 completed Not Available Not Available Not Available cefprozil 250 mg tablet 08/18 completed Not Available Not Available Not Available estradiol 0.01% (0.1 mg/gram) vaginal cream USE TOPICALLY TO VULVA DAILY FOR 30 DAYS THEN TWICE WEEKLY FOR MAINTENAN CE active Not Available Not Available No t Available chlorhexidi ne gluconate 0.12 % mouthwash USE 15 ML TO RINSE MOUTH DAILY FOR 30 SECONDS THEN SPIT 04/15 completed Not Available Not Available Not Available levothyroxi ne 04/15 completed Not Available Not Available Not Available Vitals Date Recorded Body height Body mass index (BMI) Body weight Systolic blood pressure Diastolic blood pressure Provider Name and Address Organization Details Last Updated DateTime 04/15/2021 157.48 cm 27.4 kg/m2 74315.86 g 151 mm[Hg] 86 mm[Hg] Faina Howard [facility] 13:40:19 Date Recorded Body weight Body mass index (BMI) Body height Systolic blood pressure Diastolic blood pressure Provider Name and Address Organization Details Last Updated DateTime 06/10/2021 39756.08 g 26.9 kg/m2 157.48 cm 132 mm[Hg] 78 mm[Hg] Iman Pond [facility] [address], [place], [address], [facility] 14:23:54 Date Recorded Body height Body mass index (BMI) Body weight Provider Name and Address Organization Details Last Updated DateTime 08/30/2021 157.48 cm 27.1 kg/m2 14801.67 g Faina Howard [facility] 08/30/2021 15:17:51 Date Recorded Systolic blood pressure Diastolic blood pressure Provider Name and Address Organization Details Last Updated DateTime 08/30/2021 124 mm[Hg] 76 mm[Hg] Iman Pond [facility] [address], [place], [address], [facility] 08/31/2021 09:39:00 Date Recorded Body height Body mass index (BMI) Body weight Systolic blood pressure Diastolic blood pressure Provider Name and Address Organization Details Last Updated DateTime 05/26/2020 157.48 cm 27.1 kg/m2 12057.67 g 140 mm[Hg] 82 mm[Hg] Roopa Hassan [facility] 09/08/202 0 11:44:30 Date Recorded Body height Body mass index (BMI) Body weight Systolic blood pressure Diastolic blood pressure Provider Name and Address Organization Details Last Updated DateTime 08/18/2020 157.48 cm 26.9 kg/m2 28458.08 g 132 mm[Hg] 62 mm[Hg] Roopa Hassan [facility] 0 10:58:27 Social History Question Answer Notes LastModified by Organizat ion Details LastModified Time Tobacco Smoking Status Never Smoker Faina Howard mary jane [facility] 08/30/2021 15:18:16 Do You Have An Advance Directive? No Information n ot available 04/15/2021 What Is Your Level Of Alcohol Consumption? Occasional Information not available 04/15/2021 Are You Blind Or Do You Have Difficulty Seeing? No Information n ot available 04/15/2021 What Is Your Level Of Caffeine Consumption? Moderate Information not available 04/15/2021 How Much Tobacco Do You Chew? None Information not available 08/30/2021 In The 14 Days Before Symptom Onset, Have You Had Close Contact With A Laboratory-confirm ed COVID-19 While That Case Was Ill? No Information n ot available 04/15/2021 In The 14 Days Before Symptom Onset, Have You Had Close Contact With A Person Who Is Under Investigation For COVID-19 While That Person Was Ill? No Information not available 04/15/2021 Have You Been To An Area Known To Be High Risk For COVID-19? No Information not available 04/15/2021 Are You Deaf Or Do You Have Serious Difficulty Hearing? No Information not available 08/30/2021 What Type Of Diet Are You Following? REGULAR Information n ot available 04/15/2021 What Is The Highest Grade Or Level Of School You Have Completed Or The Highest Degree You Have Received? [id number] Information not available 04/15/2021 What Is Your Occupation? Retired Information not available 04/15/2021 Are There Any Guns Present In Your Home? Yes Information not available 04/15/2021 Do You Use Protection During Sex? No Information not available 04/15/2021 Do You Use Your Seat Belt Or Car Seat Routinely? Yes Information not available 04/15/2021 Do You Have Smoke And Carbon Monoxide Detectors In Your Home? Yes Information not available 04/15/2021 At What Age Did You Start Smoking Tobacco? 16 Information not available 04/15/2021 How Much Tobacco Do You Smoke? No Information not available 04/15/2021 Do You Feel Stressed (tense, Restless, Nervous, Or Anxious, Or Unable To Sleep At Night)? [id number] Information not available 08/30/2021 Do You Use Any Illicit Or Recreational Drugs? No Information not available 04/15/2021 Do You Use Sunscreen Routinely? No Information not available 04/15/2021 How Many Years Have You Smoked Tobacco? 40 Information not available 04/15/2021 Have You Used IV Drugs? No Information not available 04/15/2021 Sex: Unknown Functional Status Question Answer Note LastModified by Organization D etails LastModified Time Are you able to walk? YESWOREST Information not available 04/15/2021 What is your exercise level? None Information not available 04/15/2021 Mental Status None recorded. Family History Relationship Description Onset Age of this Age Resolved Age Notes LastModified by Organization Details LastModified Time Father Asthma [email or web address] Not available 13:56:48 Father Carcinoma in situ of colon [email or web address] Not available 2020 14:59:31 Father Heart disease [email or web address] Not available 2019 13:57:31 Father Diabetes mellitus [email or web address] Not available 2019 13:57:42 Father Hypercholest erolemia [email or web address] Not available 2019 13:57:55 Father Hypertensive disorder [email or web address] Not available 2019 13:58:19 Maternal Grandfather Carcinoma in situ of breast [email or web address] Not available 2020 14:59:31 Maternal Grandfather Hypercholest erolemia [email or web address] Not available 2019 13:57:55 Mother Heart disease [email or web address] Not available 2019 13:57:31 Mother Hypertensive disorder [email or web address] Not available 2019 13:58:19 Brother Heart disease [email or web address] Not available 2019 13:57:31 Brother Hypertensive disorder [email or web address] Not available 2019 13:58:19 Brother Carcinoma in situ of lung [email or web address] Not available 14:59:31 Sister Heart disease [email or web address] Not available 2019 13:57:31 Sister Hypertensive disorder [email or web address] Not available 2019 13:58:19 Maternal Grandmother Hypercholest erolemia [email or web address] Not available 2019 13:57:55 Maternal Grandmother Disorder of thyroid gland [email or web address] Not available 2019 13:58:57 Maternal Aunt Suspected ovarian cancer Not available 2020 14:59:31 Maternal Aunt Malignant neoplasm of uterus [email or web address] Not available 2019 13:59:07 Medical History Condition Response Other Y Thyroid Problems Y Gynecological History Statement/Question Response Date of Last Mammogram Date of LMP 01/19/1999 On BCP's at Conception? N N STIs/STDs N HPV Vaccine N Current Control Method Menopause Age at First Child 21 If Post Menopausal, Age at Menopause 42 Date of Last Colonoscopy 07/28/2019 Most Recent Bone Density 08/22/2020 Sexually Active? N Age of first menstrual cycle 16 Date of Last Pap Smear 04/27/2020 Sexual Problems? Y LMP Unknown 08/18/2019 N Obstetrics History GPAL:G 3 P 0 0 0 3 Type Value Living 3 Total 3 Past Encounters Encounter ID Performer Location Encounter Start Date Encounter Closed Date Diagnosis/Indication Diagnosis SNOMED-CT Code Diagnosis ICD10 Code [id number] Iman Pond [facility] [address],[place] [address] 04/27/2020 13:49:58 04/27/2020 15:30:27 Atrophic vaginitis 84355298 N95.2 [id number] Iman Pond [facility] [address],[place] [address] 05/26/2020 11:30:44 05/26/2020 12:19:08 Genital lichen sclerosus 227004401 L90.0 Atrophic vaginitis 52607 000 N95.2 N94.12 [id number] Iman Pond [facility] [address],[place] [address] 08/18/2020 10:44:34 08/18/2020 11:47:14 Genital lichen sclerosus 267954995 L90.0 [id number] Iman Pond [facility] [address],[place] [address] 04/15/2021 13:28:28 04/16/2021 14:16:30 Genital lichen sclerosus 549819315 L90.0 Atrophic vaginitis 78096 000 N95.2 N94.12 [id number] Iman Pond [facility] [address],[place] [address] 06/10/2021 14:31:36 06/11/2021 00:17:18 Genital lichen sclerosus 906080324 L90.0 N95.2 [id number] Iman Pond [facility] [address],[place] [address] 08/30/2021 14:57:48 08/31/2021 13:00:13 Genital lichen sclerosus 224529182 L90.0 N95.2 Health Concerns Section Related Observation LastModified by Organization Detai ls LastModified Time None Recorded Concern Status LastModified by Organization Details LastModified Time None Recorded Advance Directives Directive N: Payers Encounter Date Sequence Insurance Name Policy Number Policy Whalen Covered Member ID Whalen Member ID Guarantor Name 05/26/2020 1 [employer] (HMO) Mami Richard [id number] Mami Richard 04/15/2021 1 [employer] - G[employer] PLUS (MEDICARE REPLACEMENT HMO) Mami Richard [id number] Mami Richard 06/10/2021 [employer] - [employer] (MEDICARE REPLACEMENT HMO) Mami Richard [id number] Mami Richard 06/10/2021 1 [employer] - [employer] (MEDICARE REPLACEMENT HMO) Mami Richard [id number] Mami Richard 08/30/2021 [employer] - [employer]US (MEDICARE REPLACEMENT HMO) Mami Richard [id number] Mami Richard 08/30/2021 1 [employer] - G[employer] PLUS (MEDICARE REPLACEMENT HMO) Mami Bonds Jose Manuel [id number] Mami M Jose Manuel Notes Date Note Type Note Provider Name and Address Organization Details Recorded Time 05/26/2020 text/html Patient is here today for F/U of recent vulvar bx results. Iman Pond [facility] [address], [place], [address], [facility] 05/26/2020 12:23:05 08/18/2020 text/html Patient is here today for a medicaton check of mycolog ointment for Lichen's sclerosis. She voices goals of therapy have been met with use of this therapy. She denies neg side effects. She is eating, drinking, sleeping well; moods are stable & periods are well regulated. Appropriate to continue this medication. Iman Pond [facility] [address], [place], [address], [facility] 08/18/2020 11:33:45 04/15/2021 text/html Here today for medication check of LS & vaginal atrophy.She was doing very well with current therapy but fell off the wagon for a few weeks and feels her sx's returned. She wanted to return to see if she should continue current therapy or ensure no other issues. Vag itching ext vulva and dyspareunia caused by Vaginal atrophy and LS is biggest complaints. Iman Pond [facility] [address] [place], [address], [facility] 04/27/2021 16:09:31 06/10/2021 text/html Here today for medication f/u & has additional concern of rectal skin irritation. Iman Pond [facility] [address], [place], [address], [facility] 06/22/2021 14:26:01 08/30/2021 text/html Here today for medication check for lichen Sclerosis of vulva & perianal skin. Iman Pond [facility] [address], [place], [address], [facility] 08/31/2021 09:49:30 OBGyn Episode Ob Episode Information Episode Created Date Number of Fetuses Patient Bloodtype Patient rh Status Prepregnancy Weight lbs Domestic Partner Domestic Partner Phone Father Name Hob [employer] Operator Status 04/27/20 20 1 CLOSED Fetus Data First Name Last Name Admitted to NICU Weight (g) Sex Living Outcome Pediatric Complications Fetus ID Race Codes Race Delivery Type [id number] Vaginal Delivery Ilan Calculation ILAN Calculation Method Initial Ilan Date Initial Exam Date Initial Exam Provider Initial Ultrasound Date Last Menstrual Period Date Ultra Sound Weeks Gestation Conception by IVF Embryo Age at Transfer Date of Transfer 0 Eighteen To Twenty Week Ilan Update Ultra Sound Date Fundal Height At Umbil Quickening Date Ultra Sound Latest Weeks Gestation Final Ilan Confirmed By Final Ilan Confirmed Date Final Ilan Date Ultra Sound Latest Days Gestation 0 0 Menstrual History Last Menstrual Date Menses Monthly On Bcp Conception Prior Menses Frequency Hcg Plus Date Menarche Onset Age Delivery Information Delivery Date Delivery Type Labor Anesthesia Weeks Gestation Incision Type Labor Labor Length Hrs Delivered By Post Complications Tubal Sterilization Discharge Date Comments 6 Discharge Information Feeding Method Contraceptive Method Maternal HG B and HCT Levels Ob Episode Information Episode Created Date Number of Fetuses Patient Bloodtype Patient rh Status Prepregnancy Weight lbs Domestic Partner Domestic Partner Phone Father Name Hob [employer] Operator Status 04/27/20 1 CLOSED Fetus Data First Name Last Name Admitted to NICU Weight (g) Sex Living Outcome Pediatric Complications Fetus ID Race Codes Race Delivery Type [id number] Vaginal Delivery Ilan Calculation ILAN Calculation Method Initial Ilan Date Initial Exam Date Initial Exam Provider Initial Ultrasound Date Last Menstrual Period Date Ultra Sound Weeks Gestation Conception by IVF Embryo Age at Transfer Date of Transfer 0 Eighteen To Twenty Week Ilan Update Ultra Sound Date Fundal Height At Umbil Quickening Date Ultra Sound Latest Weeks Gestation Final Ilan Confirmed By Final Ilan Confirmed Date Final Lian Date Ultra Sound Latest Days Gestation 0 0 Menstrual History Last Menstrual Date Menses Monthly On Bcp Conception Prior Menses Frequency Hcg Plus Date Menarche Onset Age Delivery Information Delivery Date Delivery Type Labor Anesthesia Weeks Gestation Incision Type Labor Labor Length Hrs Delivered By Post Complications Tubal Sterilization Discharge Date Comments 7 Discharge Information Feeding Method Contraceptive Method Maternal HG B and HCT Levels Ob Episode Information Episode Created Date Number of Fetuses Patient Bloodtype Patient rh Status Prepregnancy Weight lbs Domestic Partner Domestic Partner Phone Father Name [employer] Operator Status 04/27/20 20 1 CLOSED Fetus Data First Name Last Name Admitted to NICU Weight (g) Sex Living Outcome Pediatric Complications Fetus ID Race Codes Race Delivery Type [id number] Vaginal Delivery Ilan Calculation ILAN Calculation Method Initial Ilan Date Initial Exam Date Initial Exam Provider Initial Ultrasound Date Last Menstrual Period Date Ultra Sound Weeks Gestation Conception by IVF Embryo Age at Transfer Date of Transfer 0 Eighteen To Twenty Week Ilan Update Ultra Sound Date Fundal Height At Umbil Quickening Date Ultra Sound Latest Weeks Gestation Final Ilan Confirmed By Final Ilan Confirmed Date Final Ilan Date Ultra Sound Latest Days Gestation 0 0 Menstrual History Last Menstrual Date Menses Monthly On Bcp Conception Prior Menses Frequency Hcg Plus Date Menarche Onset Age Delivery Information Delivery Date Delivery Type Labor Anesthesia Weeks Gestation Incision Type Labor Labor Length Hrs Delivered By Post Complications Tubal Sterilization Discharge Date Comments 2 Discharge Information Feeding Method Contraceptive Method Maternal HG B and HCT Levels
[2024-08-30 12:51] LABS: LDL Cholesterol Direct 154 mg/dL
[2024-08-30 13:04] LABS: Hemoglobin A1C 5.4 % (<5.7)
[2024-08-30 13:10] LABS: Vitamin D 25 Hydroxy 22.8 ng/mL
== END 2024-08-30 11:38 | disposition home or self-care (01) ==
PROVIDERS: PCP Family Medicine; Visit Provider Family Medicine
DX: E78.2 Mixed hyperlipidemia (principal); Z00.00 Encounter for general adult medical examination without abnormal findings; Z13.1 Encounter for screening for diabetes mellitus; E55.9 Vitamin D deficiency, unspecified; E03.9 Hypothyroidism, unspecified
CPT/HCPCS: 36415; 80053; 80061; 82306; 83036; 84443

== ENCOUNTER 2024-11-22 15:39 | Outpatient (CLI) | payer MEDICARE, SELFPAY ==
--- NOTE | ~2024-11-22 | MM_ITS ---
EXAMINATION: MM screening macey BI w terri HISTORY: Screening mammogram, family history of breast cancer in her daughter. TECHNIQUE: Craniocaudal and mediolateral oblique 3-D tomosynthesis images were obtained and synthetic 2-D images were generated. CAD analysis was submitted and interpreted. COMPARISON: 09/14/2023, 09/02/2022, 10/11/2019 BREAST PARENCHYMAL COMPOSITION:Not Dense. The breasts are almost entirely fatty FINDINGS: No suspicious mass, calcification, or architectural distortion are identified in either rhona ast to suggest malignancy. There has been no suspicious interval change. IMPRESSION: No mammographic evidence of malignancy. Recommend routine screening mammography in one year. BI-RADS Category 1: Negative Reviewed, dictated and finalized at location .
--- OUTSIDE RECORDS SUMMARY | 2024-11-22 15:45 | XMS_ITS | Data Portability ---
Author Organization [facility] [place] Address [address] [place] [address] Care Team Providers Care Manufacturing Inspector Name Role Phone KAYLANRORY Primary Care Provider Assessment Encounter Date Assessment Date Assessment LastModified by Organization Details LastModified Time 04/15/2021 04/15/2021 Time spent in visit is a total of 15 mins with at least 50% of visit consisting of counseling and review of plan of care. Additional precautionary measures were taken to minimize potential exposure to the Covid-19 virus during this patient s visit, including available hand boat puller upon arrive, temperature check and being asked a series of screening questions. All staff wore face coverings during this encounter, as well as provided additional cleaning and sanitizing of all surfaces, including countertops, pens, chairs, door handles, light switches, etc, prior to and following the patient s visit. [email or web address] Not available 04/27/2021 16:09:21 [...] further information , please contact me at [phone]. Thank you, SRI Mendez 2020 021 [email or web address] Crystal Haskins MD - [facility], [address] [facility], [place] [address], [place], [address], 02/15/202 2 13:56:49 Procedures None recorded. Surgeries None recorded. Imaging None recorded. Medication Orders Estrace 0.01% (0.1 mg/gram) vaginal cream 2020 [facility], [address] [place], [address], 14:12:36 nystatin-tr iamcinolone 100,000 unit/gram-0 .1 % topical ointment 2020 [facility], [address] [place] [address], [address], 14:12:33 nystatin-tr iamcinolone 100,000 unit/gram-0 .1 % topical ointment 2019 [facility] 361, [address] [place] [address], [address], 1 13:42:55 Estrace 0.01% (0.1 mg/gram) vaginal cream [address], [address] [place] [address], [address], 1 13:40:43 nystatin-tr iamcinolone 100,000 unit/gram-0 .1 % topical ointment [address], [address] [place] [address], [address], 13:41:09 Patient TargetsNo targets recorded. Patient InstructionsNo instructions recorded. Reason for Referral [employer] Maker Referral for Ge nital lichen sclerosus Lichen Sclerosis Please reach out to patient to schedule her for an appt, she is expecting the call. Please find attached her demographics and office visit notes. If you have any questions or require further information, please contact me at [phone]. Thank you, SRI Mendez Referring Physician: Iman Pond, LIBRARY PAGE, Encounter Date: 08/30/2021 Results Created Date Observation Date Name Description Value Unit Range Abnormal Flag Note LastModifiedBy Organization Detail LastModifiedTime 04/27/20 20 04/29/2020 pap, LB Pap test thin prep Negati ve for Intrae pithel ial Lesion or Malign richy normal ACCES AIME #: [id number] Sourc e: Cervi stephen/E ndoce rvica l LMP: 09/18 Date Taken : 04/27 Speci men Type: ThinP rep Vial Date Repor kailyn: 2019 Clini stephen Data: Cytot ech: Rachelle Miller ingrid CT( CP) Date Repor kailyn: 2019 Speci men Adequ acy: Satis facto [...] tion of E6/E7 viral mRNA. Resul ts shoolegario d be corre lated with patie nt prese ntati on, histo ry, cervi stephen cytol ogy and other clini stephen and labor atory findi ngs. See https ://ww [facility]/s ites/ defau lt/fi les/2 018-0 3/AW- [id number] _002_ 01.pd f for [facility] er infor luis carlos n. Test perfo rmed by [employer], d/b/a [employer], [address], [place] [address] , Faustino Jackson ra, , Labor atory Dire tor. HPV High Risk *HPV NOT DETEC KAILYN (TYPE S 16, 18, 31, 33, 35, 39, 45, 51, 52, 56, 58, 59, 66, 68) *HPV: The human papil lomav irus (HPV) High Risk Blayne madrigal is an FDA-a pprov ed in-vi tro ampli fied nucle ic acid test for the quali tativ e detec tion of E6/E7 viral mRNA. [facility] shoul d be corre lated with patie nt prese ntati on, histo ry, cervi stephen cytol ogy and other clini stephen and labor atory findi ngs. See https ://Ef[employer]/s ites/ defau lt/fi les/2 018-0 3- 16822 _002_ 01.pd f for [facility] er infor luis carlos n. Test perfo rmed by [facility], d/b/a [employer], [address], [place] [address] , Faustino Jackson ra, , Labor atory Dire tor. End of Repor t Techn ical servi celso provi ded by [employer], d/b/a [employer], [address] [place] [address] Jason Alvarez MD, Labor atory Dire tor. Case revie wed and diagn osis rende red at [facility], d/b/a [employer], [address] [place] [address] Jason Alvarez MD, Labor atory Dire tor. CONFI DENTI AL Not Available [facility] ([facility]) [address], [place], [address], 04/29/2020 19:22:22 04/27/20 20 04/29/2020 bacte rial vagin osis + vagin itis panel , vagin al chadd sp. Not Detect ed normal Trich omona s vagin chelo: DNA testi ng perfo rmed by Trans cript ion Media kailyn Ampli ficat ion (TMA) These resul ts [...] rmed by Assoc iated Patho logis ts, [facility], d/b/a Path kyle, [address], [place] [address] , Faustino Jackson ra, DO, Labor atory Direc tor. Gardn erell a vagin chelo, Dasha da speci es: Genom ic DNA is isola kailyn from patie nt speci mens by stand [...] chelsey resul ts of Carole l or [place] kailyn are deter mined by calcu latin g [...] e libby cteri stics deter mined by [employer]o [employer], Stilnest d/b/a PathAmeibo. It has not been clear ed or appro kwaku by the U.S. Food and Drug Admin istra tion. The FDA has deter mined that such clear ance or appro gemini is not neces dilma. Perti nent refer ence inter vals are avail able from the Parrut on reque st. Test( s) perfo rmed by Assoc iatHomeUnion Serviceso [employer], Stilnest, d/b/a [facility], [address], [place] [address] , Faustino Jackson ra, DO, Labor atory Dire tor. Not Available [facility] ([facility]) [address], [place], [address], 04/29/2020 19:22:22 04/27/20 20 04/29/2020 bacte rial vagin osis + vagin itis panel , vagin al gardnerella vaginalis Not Detect ed normal Trich omona s vagin chelo: DNA testi ng perfo rmed by Trans cript ion Media kailyn Ampli ficat ion (TMA) These resul ts [...] [address]pa [address], [facility] [place] [address] , Faustino Jackson ra, DO, Labor atory Direc tor. Gardn erell a vagin chelo, Dasha da speci es: Genom ic DNA is isola kailyn from patie nt speci mens by stand [...] chelsey resul ts of Carole l or [place] kailyn are deter mined by calcu latin g [...] e libby cteri stics deter mined by [employer] [employer] [facility] [employer] d/b/a PathG rou. It has not been clear ed or appro kwaku by the U.S. Food and Drug Admin istra tion. The FDA has deter mined that such clear ance or appro gemini is not neces dilma. Perti nent refer ence inter vals are avail able from the labor atory on reque st. Test( s) perfo rmed by [employer] iatTeamisto Patho [employer], Stilnest, d/b/a PathG roup, [address], [place] [address] , Faustino Jackson ra, DO, Labor atory Direc tor. Not Available [facility] ([facility]) [address], [place], [address], 04/29/2020 19:22:22 04/27/20 20 04/29/2020 bacte rial vagin osis + vagin itis panel , vagin al trichomonas vaginalis, aptima (panther) NOT DETECT ED normal Trich omona s vagin chelo: DNA testi ng perfo rmed by Trans cript ion Media kailyn Ampli ficat ion (TMA) These resul ts [...] ing error . Test perfo rmed by [facility] [employer], d/b/a PathG roup, [address], [facility] [place] [address] , Faustino Jackson ra, , Labor atory Direc tor. Gardn erell a vagin chelo, Dasha da speci es: Genom ic DNA is isola kailyn from patie nt speci mens by stand [...] chelsey resul ts of Carole l or [place] kailyn are deter mined by calcu latin g [...] e libby cteri stics deter mined by [employer], Stilnest d/b/a PathRob rouyung. It has not been clear ed or appro kwaku by the U.S. Food and Drug Admin istra tion. The FDA has deter mined that such clear ance or appro gemini is not neces dilma. Perti nent refer ence inter vals are avail able from the labor atory on reque st. Test( s) perfo rmed by [facility] Patho [employer], Stilnest, d/b/a PathRob rouyung, [address], [place] [address] , Faustino Jackson ra, DO, Labor atory Dire tor. Not Available [facility] ([facility]) [address] [facility] [address], [place], [address], 04/29/2020 19:22:22 04/27/20 20 04/29/2020 HPV DNA, high- risk HPV high risk NOT DETECT ED normal The human papil lomav irus (HPV) High Risk Blayne madrigal is an FDA-a pprov ed in-vi tro ampli fied nucle ic acid test for the quali tativ e detec tion of E6/E7 viral mRNA. [facility] ts shoolegario d be corre lated with derrek nt prese ntati on, histo ry, cervi stephen cytol ogy and other clini stephen and labor atory findi ngs. See https ://Efizity/s ites/ defau lt/fi les/2 018-0 3/AW- 51217 _002_ 01.pd f for latasha madrigal. Test perfo rmed by [facility]oc iated Patho logis ts, [facility], d/b/a PathG rou, [address] [place], [place] [address], [place] [address] , Faustino Jackson ra, DO, Labor atory Dire tor. Not Available [facility] ([facility]) [facility] [facility] [address], [place], [address], 04/29/2020 19:22:23 04/27/20 20 04/30/2020 surgi stephen patho logy study surgical pathology View Report ACCES AIME #: [id number] Derrek nt Name: RADAMES RT, BETSY Ortiz M Age-S ex-DO B: 65y F [birth year] Proce dure Date: 04/27 Acces aime Date: 2019 Pt Acct# : Repor t [...] liche n planu s, howev er, clini stepehn corre latio n is requi red. Mo [...] lesio ns ident ified . The surgi stephen armida n is inked blue. The speci men is bisec kailyn and entir moraima submi tted in casse [...] Techn ical servi celso provi ded by Ass iatTeamisto Patho [employer], d/b/a Carina wright, [address] [place] [address] Jason Alvarez MD, Labor Codarica. Case revie wed and diagn osis rende red at Ass [facility] Path[facility] [employer], d/b/a PathRob wright, [address], [place] [address] Kin Duran MD, Labor Codarica. CONFI DENTI AL Not Available [facility] ([facility]) [address], [place], [address], 04/30/2020 09:54:56 Result Notes None recorded. Procedures Surgical History Date Name Laterality Status Provider Name and Address Organization Details Recorded Time 08/22/20 20 Most Recent Bone Density completed [facility] 04/15/2021 13:40:28 04/27/20 20 Vulvar Biopsy completed DEANN Gonzalez-BC [address], [place], [address], [facility] 04/27/2020 15:18:52 04/27/20 20 Date of Last Pap Smear completed [facility] 08/30/2021 13:05:38 04/27/20 20 biopsy of vulva completed [facility] 08/30/2021 11:03:20 08/18/20 19 completed [facility] 04/15/2021 13:40:28 07/28/20 19 Date of Last Colonoscopy completed [facility] 04/15/2021 13:40:[address] [facility] 04/27/2020 13:59:20 Dilation and Curettage completed [facility] 04/27/2020 13:59:24 Tubal Ligation completed [facility] 04/27/2020 13:59:30 Imaging Results None recorded. Procedure Notes None recorded. Medical Equipment None Reported. Allergies Allergen ID Allergen Name Allergen Category Reaction Reaction Severity Criticality Documentation Date Start Date Code Code System Note Provider Name and Address Organization Details Recorded Time 1649 Iodinated contrast media (substanc e) medicatio n Not available Not available Not available 04/27/2020 20253 2003 SNOMED Roopa Hassan [facility] 0 13:55:31 Medications Name Sig Start [...] Updated DateTime 04/15/2021 157.48 cm 27.4 kg/m2 74722.86 g 151 mm[Hg] 86 mm[Hg] Faina Howard [facility] 13:40:19 Date Recorded Body weight Body mass index (BMI) Body height Systolic blood pressure Diastolic blood pressure Provider Name and Address Organization Details Last Updated DateTime 06/10/2021 52805.08 g 26.9 kg/m2 157.48 cm 132 mm[Hg] 78 mm[Hg] Iman Pond [facility] [address], [place], [address], [facility] 14:23:54 Date Recorded Body height Body mass index (BMI) Body weight Provider Name and Address Organization Details Last Updated DateTime 08/30/2021 157.48 cm 27.1 kg/m2 05324.67 g Faina Howard [facility] 08/30/2021 15:17:51 Date Recorded Systolic blood pressure Diastolic blood pressure Provider Name and Address Organization Details Last Updated DateTime 08/30/2021 124 mm[Hg] 76 mm[Hg] Iman Pond [facility] [address], [place], [address], [facility] 08/31/2021 09:39:00 Date Recorded Body height Body mass index (BMI) Body weight Systolic blood pressure Diastolic blood pressure Provider Name and Address Organization Details Last Updated DateTime 05/26/2020 157.48 cm 27.1 kg/m2 59565.67 g 140 mm[Hg] 82 mm[Hg] Roopa Hassan [facility] 11:44:30 Date Recorded Body height Body mass index (BMI) Body weight Systolic blood pressure Diastolic blood pressure Provider Name and Address Organization Details Last Updated DateTime 08/18/2020 157.48 cm 26.9 kg/m2 60490.08 g 132 mm[Hg] 62 mm[Hg] Roopa Mo [facility] 0 10:58:27 Social History Question Answer Notes LastModified by Organizat ion Details LastModified Time Tobacco Smoking Status Never Smoker Faina Howard mary jane [facility] 08/30/2021 15:18:16 Do You Have An [...] Or The Highest Degree You Have Received? [id number] Information not available 04/15/2021 What Is Your [...] Anxious, Or Unable To Sleep At Night)? [id number] Information not available 08/30/2021 Do You Use [...] 13:56:48 Father Carcinoma in situ of colon [email or web address] Not available 2020 14:59:31 Father Heart disease [email or web address] Not available 2019 13:57:31 Father Diabetes mellitus [email or web address] Not available 2019 13:57:42 Father Hypercholest erolemia [email or web address] Not available 2019 13:57:55 Father Hypertensive disorder [email or web address] Not available 2019 13:58:19 Maternal Grandfather Carcinoma in situ of breast [email or web address] Not available 2020 14:59:31 Maternal Grandfather Hypercholest erolemia [email or web address] Not available 2019 13:57:55 Mother Heart disease [email or web address] Not available 2019 13:57:31 Mother Hypertensive disorder [email or web address] Not available 2019 13:58:19 Brother Heart disease [email or web address] Not available 2019 13:57:31 Brother Hypertensive disorder [email or web address] Not available 2019 13:58:19 Brother Carcinoma in situ of lung Not available 14:59:31 Sister Heart disease [email or web address] [...] Diagnosis/Indication Diagnosis SNOMED-CT Code Diagnosis ICD10 Code Diagnosis Note [id number] [facility] [address] [address] 04/27/2020 13:49:58 04/27/2020 15:30:27 Atrophic vaginitis [id number] N95.2 Likely a form of Lichen's is present. A vulvar bx was completed today to confirm. Treatment initiated. Counseled on medication R/B's, Most common side effects, & use. All questions were answered to patient satisfacti on. VCG sheet given for review & additional instructio ns post-op for keeping area of bx C/D/I. To limit contact during covid we agreed she would call if any issues in area of vulvar bx (reviewed signs of infection) ; otherwise can f/u x 4wks. Counseled on use of mycolog ointment/V CG s/and then at next f/u we can decide if we also need to add vag estrogen therapy. NEW Time spent in visit is a total of 32 mins with at least 50% of visit consisting of counseling and review of plan of care NOT including time spent on procedure. [id number] Iman Pond [facility] [address],[place] [address] 05/26/2020 11:30:44 05/26/2020 12:19:08 Genital lichen sclerosus [id number] L90.0 We discussed dx of LS. handouts given. She will start Mycolog ointment for LS & vag estrace cream for atrophy-dy spareunia. Counseled on medication R/B's, Most common side effects, & use. All questions were answered to patient satisfacti on. RTO x 3mos f/u Time spent in visit is a total of 26 mins with at least 50% of visit consisting of counseling and review of plan of care. Atrophic vaginitis 58488 000 N95.2 N94.12 Counseled on medication R/B's, Most common side effects, & use. All questions were answered to patient satisfacti on. Start Estrace PV f/u x 3mos [id number] Iman Pond [facility] [address],[place] [address] 08/18/2020 10:44:34 08/18/2020 11:47:14 Genital lichen sclerosus [id number] L90.0 We agreed to continue mycolog therapy as prn since well controlled . RF's sent Will f/u yearly or sooner if any changes. Time spent in visit is a total of 15 mins with at least 50% of visit consisting of counseling and review of plan of care. [id number] Iman Pond [facility] [address],[place] [address] 04/15/2021 13:28:28 04/16/2021 14:16:30 Genital lichen sclerosus [id number] L90.0 We agreed to continue mycolog therapy as prn since well controlled . RF's sent Will f/u yearly or sooner if any changes. Time spent in visit is a total of 15 mins with at least 50% of visit consisting of counseling and review of plan of care. Atrophic vaginitis 27544 000 N95.2 N94.12 Counseled on medication R/B's, Most common side effects, & use. All questions were answered to patient satisfacti on. Start Estrace PV f/u x 3mos [id number] Iman Pond [facility] [address],[place] [address] 06/10/2021 14:31:36 06/11/2021 00:17:18 Genital lichen sclerosus [id number] L90.0 N95.2 Trial of using crisco with bowel movement from front to back with wipe to avoid irritation caused by friction from toilet tissue.Con tinue use of mycolog as previously instructed Estrogen cream topically to the area of perineum where episiotomy was done years ago; which is the area she continues to have the most issues with. RTO x 3mos Time spent in visit is a total of 15mins with at least 50% of visit consisting of counseling and review of plan of care.Addit ional precaution ignacio measures were taken to minimize potential exposure to the Covid-19 virus during this patient s visit, including available hand boat puller upon arrive, temperatur e check and being asked a series of screening questions. All staff wore face coverings during this encounter, as well as provided additional cleaning and sanitizing of all surfaces, including countertop s, pens, chairs, door handles, light switches, etc, prior to and following the patient s visit. [id number] [facility]man Pond [facility] [address] [address] 08/30/2021 14:57:48 08/31/2021 13:00:13 Genital lichen sclerosus [id number] L90.0 N95.2 Today, we discussed her current progress which is the same as her last visit.Her insurance is changing & our office is no longer on her plan.We had previously discussed a referral to Vulvar care clinic in [facility] which I believe would be her best option for further evaluation & recommenda tions for this issue.She is in agreement with this option.Ref errabelardo placed.Adv ised her to have her new insurance informatio n available when pet nutrition specialist contacts her.She will continue her current regimen to maintain the progress we have achieved this far. Time spent in visit is a total of 15 mins with at least 50% of visit consisting of counseling and review of plan of care. Additional precaution ignacio measures were taken to minimize potential exposure to the Covid-19 virus during this patient s visit, including available hand boat puller upon arrive, temperatur e check and being asked a series of screening questions. All staff wore face coverings during this encounter, as well as provided additional cleaning and sanitizing of all surfaces, including countertop s, pens, chairs, door handles, light switches, etc, prior to and following the patient s visit. Health Concerns Section Related Observation LastModified by Organization Detai ls LastModified Time None Recorded Concern Status LastModified by Organization Details LastModified Time None Recorded Advance Directives Directive N: Payers Encounter Date Sequence Insurance Name Policy Number Policy Whalen Covered Member ID Whalen Member ID Guarantor Name 05/26/2020 1 [employer] (HMO) Mami Richard [id number] Mami Richard 04/15/2021 1 [employer] - G[employer]US (MEDICARE REPLACEMENT HMO) Mami Richard [id number] Mami Richard 06/10/2021 [employer] - [employer] (MEDICARE REPLACEMENT HMO) Mami Richard [id number] Mami Richard 06/10/2021 1 [employer] - [employer]US (MEDICARE REPLACEMENT HMO) Mami Richard [id number] Mami Richard 08/30/2021 [employer] - [employer]US (MEDICARE REPLACEMENT HMO) Mami Richard [id number] Mami Richard 08/30/2021 1 [employer] - [employer]US (MEDICARE REPLACEMENT HMO) Mami Richard [id number] Mami Richard Notes Date Note Type Note Provider Name and Address Organization Details Recorded Time 05/26/2020 text/html Patient is here today for F/U of recent vulvar bx results. [facility] [address], [place], [address], [facility] 05/26/2020 12:23:05 08/18/2020 text/html Patient is here today for a medicaton check of mycolog ointment for Lichen's sclerosis. She voices goals of therapy have been met with use of this therapy. She denies neg side effects. She is eating, drinking, sleeping well; moods are stable & periods are well regulated. Appropriate to continue this medication. Iman Pond [facility] [address], [place], [address], [facility] 08/18/2020 11:33:45 04/15/2021 text/html Here [...] and LS is biggest complaints. Iman Pond [facility] [address], [place], [address], [facility] 04/27/2021 16:09:31 06/10/2021 text/html Here today for medication f/u & has additional concern of rectal skin irritation. Iman Pond [facility] [address], [place], [address], [facility] 06/22/2021 14:26:01 08/30/2021 text/html Here today for medication check for lichen Sclerosis of vulva & perianal skin. Iman Pond [facility] [address], [place], [address], [facility] 08/31/2021 09:49:30 OBGyn Episode Ob Episode Information Episode Created Date Number of Fetuses Patient Bloodtype Patient rh Status Prepregnancy Weight lbs Domestic Partner Domestic Partner Phone Father Name Slot Floor Person Status 04/27/20 20 1 CLOSED Fetus Data First Name Last Name Admitted to NICU Weight (g) Sex Living Outcome Pediatric Complications Fetus ID Race Codes Race Delivery Type [id number] Vaginal Delivery Ilan Calculation Initial Ilan Date Initial Exam Date Initial Exam Provider Initial Ultrasound Date Last Menstrual Period Date Ultra Sound Weeks Gestation 0 Eighteen To Twenty Week Ilan Update [...] Domestic Partner Domestic Partner Phone Father Name Slot Floor Person Status 04/27/20 1 CLOSED Fetus Data First Name Last Name Admitted to NICU Weight (g) Sex Living Outcome Pediatric Complications Fetus ID Race Codes Race Delivery Type [id number] Vaginal Delivery Ilan Calculation Initial Ilan Date Initial Exam Date Initial Exam Provider Initial Ultrasound Date Last Menstrual Period Date Ultra Sound Weeks Gestation 0 Eighteen To Twenty Week Ilan Update [...] Domestic Partner Domestic Partner Phone Father Name Slot Floor Person Status 04/27/20 20 1 CLOSED Fetus Data First Name Last Name Admitted to NICU Weight (g) Sex Living Outcome Pediatric Complications Fetus ID Race Codes Race Delivery Type [id number] Vaginal Delivery Ilan Calculation Initial Ilan Date Initial Exam Date Initial Exam Provider Initial Ultrasound Date Last Menstrual Period Date Ultra Sound Weeks Gestation 0 Eighteen To Twenty Week Ilan Update [...]
--- OUTSIDE RECORDS SUMMARY | 2024-11-22 15:45 | XMS_ITS | Patient Health Summary ---
Author Organization [facility] Address [address] [place] [address] Care Team Providers Care Flat Sorter Processor Name Role Phone Vanessa Patterson MD Primary Care Provider [phone] Note from [facility],non-owned Affiliates and Associated Physician Practices is amultiple site organization consisting of ambulatory clinics and hospital sitesin [place], [place], [place] and [place]. This disclosure is being madepursuant to the Care Everywhere program and may not contain all information available regarding this patient. Last updated 18.[facility] Allergies * Contrast-Iodinated Agents For Ct/Other(Rash) -High Criticality Medications * Be aware that medications may not be up to date on this document. Alwaysverify current medications with the patient. * aspirin EC (Ecotrin) 81 MG tablet Take 1 (one) tablet by mouth once daily * ibuprofen (Motrin) 800 MG tablet(Started 12/23/2022) Take 1 (one) tablet by mouth every 8 hours as needed For pain. * pantoprazole EC (Protonix) 40 MG tablet(Started 03/21/2023) Take 1 (one) tablet by mouth once daily * liothyronine (Cytomel) 5 MCG tablet(Started 08/19/2023) Take 1 (one) tablet by mouth 2 times daily * levothyroxine (Synthroid) 88 MCG tablet(Started 01/17/2024) Take 1 (one) tablet by mouth once daily * fluocinonide (Lidex) 0.05 % ointment(Started 09/25/2024) Apply to external vulvar tissue twice daily. 2 refills by 09/25/2025 Active Problems Problem Noted Date Diagnosed Date Lichen sclerosus et atrophicus of the vulva 10/19 Lumbar stenosis 10/02/2018 Chronic fatigue 07/31/2017 03/28/2023 Hypothyroidism 08/21/2013 Social History Tobacco Use Types Packs/Day Years Used Date Smoking Tobacco: Former Cigarettes Q uit: 2018 Passive Smoke Exposure: Never Smokeless Tobacco: Never Tobacco Cessation:Counseling Given: Not Answered Alcohol Use Standard Drinks/Week Comments Not Currently 0 (1 standard drink = 0.6 oz pur e alcohol) PHQ-2 Answer Date Recorded PHQ2 TOTAL SCORE 0 03/21/2023 Sex and Gender Information Value Date Recorded Sex Assigned at Not on file Gender Identity Not on file Sexual Orientation Not on file Last Filed Vital Signs Vital Sign Reading Time Taken Comments Blood Pressure 128/68 09/25/2024 10:32 AM GIFT SHOP CLERK Pulse - - Temperature 36.2 C (97.2 F) 10/03/2023 10:18 AM GIFT SHOP CLERK Respiratory Rate - - Oxygen Saturation - - Inhaled Oxygen Concentration - - Weight 71.8 kg (158 lb 3.2 oz) 09/25/2024 10:32 AM GIFT SHOP CLERK Height 157.5 cm (5' 2 ) 09/25/2024 10:32 AM GIFT SHOP CLERK Body Mass Index 28.94 09/25/2024 10:32 AM GIFT SHOP CLERK Procedures * CULTURE YEAST WITH DIRECT FLUORESCENT RAMON(Performed 09/27/2022) Performed for Lichen sclerosus et atrophicus of the vulva * FUNGUS RAMON - POINT OF CARE (AMB) [facility](Performed 11/01/2021) Performed for Lichen sclerosus et atrophicus of the vulva * PH FLUID - POCT (AMB) [facility](Performed 11/01/2021) Performed for Lichen sclerosus et atrophicus of the vulva * CULTURE YEAST(Performed 11/01/2021) Performed for Lichen sclerosus et atrophicus of the vulva * WET PREP - POINT OF CARE (AMB) [facility](Performed 11/01/2021) Performed for Lichen sclerosus et atrophicus of the vulva Results * CULTURE YEAST WITH DIRECT FLUORESCENT RAMON (09/27/2022 1:57 PM GIFT SHOP CLERK) Smear [facility] Comment: CULTURE, YEAST, W/DIRECT FLUORESCENT RAMON Micro Number: [id number] Test Status: Final Specimen Source: Genital Specimen Quality: Adequate Smear: No yeast seen Result: No fungal growth at 2 Weeks Test Performed at: [facility] [address] RODNEY GORDON MD Microbiology SPECIMEN FROM GENITAL SYSTEM / Unknown 09/27/2022 1:57 PM GIFT SHOP CLERK 09/29/2022 2:23 AM GIFT SHOP CLERK Crystal Montelongo MD LAB - MICROBIOLOGY ORDERABLES [address] [id number] * PH FLUID - POCT (AMB) [facility] (11/01/2021 8:29 AM GIFT SHOP CLERK) pH Vaginal 4.5 Fluid ENTIRE VAGINA / Unknown 11/01/2021 8:29 AM GIFT SHOP CLERK Crystal Montelongo MD LAB - POINT OF CAR E ORDERABLES * FUNGUS RAMON - POINT OF CARE (AMB) [facility] (11/01/2021 8:29 AM GIFT SHOP CLERK) RAMON Prep No Fluid BODY FLUID SPECIMEN / Unknown 11/01/2021 8:29 AM GIFT SHOP CLERK Crystal Montelongo MD LAB - POINT OF CAR E ORDERABLES * CULTURE YEAST (11/01/2021 8:29 AM GIFT SHOP CLERK) Culture Yeast with ID [facility] Comment: CULTURE, YEAST, W/IDENTIFICATION Micro Number: [id number] Test Status: Final Specimen Source: Vulva Specimen Quality: Adequate Result: No fungal growth at 2 Weeks Test Performed at: [facility] [address] RODNEY GORDON MD Microbiology ENTIRE VULVA / Unknown 11/01/2021 8:29 AM GIFT SHOP CLERK 11/02/2021 3:50 AM GIFT SHOP CLERK Crystal Montelongo MD LAB - MICROBIOLOGY ORDERABLES [facility] [address] [place] [address] * WET PREP - POINT OF CARE (AMB) [facility] (11/01/2021 8:28 AM GIFT SHOP CLERK) pH Wet Prep 4.5 Yeast Wet Prep neg Trichomonas Wet Prep None Bacteria Wet Prep neg Whiff Test neg BODY FLUID SPECIMEN / Unknown 11/01/2021 8:28 AM GIFT SHOP CLERK Crystal Montelongo MD LAB - POINT OF CAR E ORDERABLES Care Teams Flat Sorter Processor Relationship Specialty Start Date End Date Vanessa Patterson MD [address] [place] [address] PCP - General 08/31/21
--- OUTSIDE RECORDS SUMMARY | 2024-11-22 15:45 | XMS_ITS | Clinical Summary ---
Author Organization [facility] Administrative Offices Address [address] [place] [address] Care Team Providers Care Designer Architect Name Role Phone Vanessa Patterson MD Primary Care Provider [phone] Allergies Active Allergy Reactions Criticality Noted Date Comments Iodinated Contrast Media Other (See Comments) High 03/26/2019 Causes frozen joints Medications levothyroxine 100 mcg tablet Take 100 mcg by mouth daily sander portable machine. Active aspirin (ECOTRIN EC) 81 mg Tablet, Delayed Release (E.C.) Take 81 mg by mouth daily. Active estradioL (ESTRACE) 0.01% (0.1 mg/g) vaginal cream estradiol 0.01% (0.1 mg/gram) vaginal cream Active fluocinonide (LIDEX) 0.05 % Ointment Apply to external vulvar tissue twice daily. 2 Active nystatin-triamc inolone (MYCOLOG) 100,000-0.1 unit/gram-% Ointment nystatin-triamci nolone 100,000 unit/gram-0.1 % topical ointment APPLY TOPICALLY TO VULVA TWICE DAILY FOR 4 WEEKS THEN ONCE A DAY FOR 4 WEEKS THEN 2 3 TIMES WEEKLY FOR MAINTENANCE Active Active Problems Problem Noted Date Diagnosed Date Lichen sclerosus et atrophicus of the vulva 10/19 Lumbar stenosis 10/02/2018 Chronic fatigue 07/31/2017 Overview (10/10/2022): Last Assessment & Plan: Exercise recommended Tips to prevent more weight gain discussed Hypothyroidism 08/21/2013 Overview (10/10/2022): HYPOTHYROIDISM NOS Last Assessment & Plan: Thyroid function tests, including TSH and free T4 were requested Will adjust dose of Levothyroxine accordingly . If there is a need to make changes, will recheck levels in 2-3 months. Instructions to patient on taking medication properly : in the morning, on an empty stomach , 1 h part from food and/or other meds. HYPOTHYROIDISM NOS Last Assessment & Plan: Thyroid function tests, including TSH and free T4 were requested Will adjust dose of Levothyroxine accordingly . If there is a need to make changes, will recheck levels in 2-3 months. Instructions to patient on taking medication properly : in the morning, on an empty stomach , 1 h part from food and/or other meds. Social History Tobacco Use Types Packs/Day Years Used Date Smoking Tobacco: Former Cigarettes Q uit: 04/28/2018 Smokeless Tobacco: Never Tobacco Cessation:Counseling Given: Not Answered Alcohol Use Standard Drinks/Week Comments No 0 (1 standard drink = 0.6 oz pur e alcohol) Comments No Sex and Gender Information Value Date Recorded Sex Assigned at Not on file Legal Sex Female 11:53 AM CDT Gender Identity Not on file Sexual Orientation Not on file Last Filed Vital Signs Vital Sign Reading Time Taken Comments Blood Pressure 140/80 10/10/2022 11:27 AM COMMUNICATIONS DEPARTMENT HEAD Pulse 74 07/11/2019 10:31 AM CDT Temperature 36.5 C (97.7 F) 06/28/2019 8:15 AM CDT Respiratory Rate 17 07/11/2019 10:31 AM CDT Oxygen Saturation 96% 06/28/2019 9:00 AM CDT Inhaled Oxygen Concentration - - Weight 66.2 kg (146 lb) 10/10/2022 11:27 AM COMMUNICATIONS DEPARTMENT HEAD Height 157.5 cm (5' 2 ) 10/10/2022 11:27 AM COMMUNICATIONS DEPARTMENT HEAD Body Mass Index 26.7 10/10/2022 11:27 AM COMMUNICATIONS DEPARTMENT HEAD Plan of Treatment Health Maintenance Due Date Last Done Comments DTAP/TDAP/TD VACCINES (1 - Tdap) 1976 BREAST CANCER SCREENING 1997 COLORECTAL SCREENING 2002 Colorectal Cancer Screening 2002 FIT-DNA Q 3 years 2002 FIT/FOBT Q 1 year 2002 Flex Sig/CT Colonography Q 5 years 2002 PNEUMOCOCCAL VACCINE 50+ YEARS (1 of 1 - PCV) 03/14/20 07 ZOSTER VACCINE (1 of 2) 2007 OSTEOPOROSIS SCREENING 2022 INFLUENZA VACCINE (#1) 2024 RSV VACCINE (60+ or ) (1 - 1-dose 75+ series) 2032 Medical Devices Implanted Type Area Supervisor Assembling Device Identifier Shelf Expiration Date Model / Serial / Lot Sealant Duraseal 5ml [id number] Implanted:Qt y: 1 on 10/02/2018 by Alfie Guerin MD at [facility] Biological N/A: Back LettuceThinnerA LoopCIENCE HOLD JOI [id number] 04/17/2019 / / [id number] Con[employer] Proti P, [id number] Implanted:Qt y: 1 on 10/02/2018 by Alfie Guerin MD at [facility] Cage N/A: Back J[employer]J- [employer] [id number] 12/13/2022 [id number] / / [id number] Description:All Depuy spine spinal hardware was processed on requisition,[id number]. Hemostatic Surgiflo 8ml W/Thrombin 2994 - [id number] Implanted:Qt y: 1 on 10/02/2018 by Alfie Guerin MD at [facility] Hemostatic N/A: Back J[employer]J- [employer] [id number] 02/16/2020 2994 / / [id number] Yovani Xpdm Crv W/Line 55mm 1797-71-055 - [id number] Implanted:Qt y: 2 on 10/02/2018 by Alfie Guerin MD at [facility] Yovani N/A: Back J[employer]J- [employer] [id number] / / LOAD 28, STERILIZED SEP 27, 2018 Setscrew Inner 1797-02-000 - [id number] Implanted:Qt y: 4 on 10/02/2018 by Alfie Guerin MD at [facility] Screw N/A: Back J[employer]J- [employer] 179- / / LOAD 28, STERILIZED SEP 27, 2018 Screw Exp Poly 6x45mm [id number] - [id number] Implanted:Qt y: 2 on 10/02/2018 by Alfie Guerin MD at [facility] Screw N/A: Back J[employer]- [employer] 5 / / LOAD 28, STERILIZED SEP 27, 2018 Screw Exp Poly 7x40mm [id number] - [id number] Implanted:Qt y: 2 on 10/02/2018 by Alfie Guerin MD at [facility] Screw N/A: Back J[employer]J- [employer] / / LOAD 28, STERILIZED SEP 27, 2018 Putty Dbx [facility] 28936 - [id number] Implanted:Qt y: 1 on 10/02/2018 by Alfie Guerin MD at [facility] Tissue N/A: Back MUSCULOSKELETAL TRANSPLANT FOU [id number] 03/10/2020 [id number] / [id number] / Neck Hardware Explanted Type Area Supervisor Assembling Device Identifier Shelf Expiration Date Model / Serial / Lot Back Hardware Explanted:Qty: 1 on 10/02/2018 by Alfie Guerin MD at [facility] Description:1 plate and 4 sc rews explanted Insurance [facility] [id number] Advance Directives For more information, please contact: [phone] * Full Code (Latest Code Status on File) Date Activated Date Inactivated Comments 06/28/2019 6:14 AM 06/28/2019 11:18 AM * Full Code Date Activated Date Inactivated Comments 10/02/2018 10:58 AM 10/03/2018 12:42 PM Care Teams Designer Architect Relationship Specialty Start Date End Date Vanessa Patterson MD [address] [place] [address] PCP - General Family Practice 07/20/18
--- OUTSIDE RECORDS SUMMARY | 2024-11-22 15:45 | XMS_ITS | Clinical Summary ---
Author Organization [facility] Physician Office Building [address] [place] [id number] Care Team Providers Care Calender Roll Press Operator Name Role Phone Vanessa Patterson MD Primary Care Provider Allergies Active Allergy Reactions Criticality Noted Date Comments Iodinated Contrast Media Rash High 03/26/2019 Causes frozen joints Medications aspirin 81 mg enteric coated tablet Take 1 tablet (81 mg total) by mouth daily Active nystatin-triam cinolone ointment nystatin-triamc inolone 100,000 unit/gram-0.1 % topical ointment APPLY TOPICALLY TO VULVA TWICE DAILY FOR 4 WEEKS THEN ONCE A DAY FOR 4 WEEKS THEN 2 3 TIMES WEEKLY FOR MAINTENANCE Active fluocinonide (LIDEX) 0.05 % ointment APPLY OINTMENT TO EXTERNAL VULVAR TISSUE TWICE DAILY 05/31/20 22 Active estradioL (ESTRACE) 0.01 % (0.1 mg/gram) vaginal cream estradiol 0.01% (0.1 mg/gram) vaginal cream Active pantoprazole DR (PROTONIX) 40 mg EC tablet Take 1 tablet (40 mg total) by mouth daily 06/07/20 23 Active ibuprofen (ADVIL,MOTRIN) 800 mg tablet Take 1 tablet (800 mg total) by mouth every 8 (eight) hours as needed 12/24/19 23 Active levothyroxine (SYNTHROID) 100 mcg tablet Take 1 tablet (100 mcg total) by mouth daily 90 tablet 3 10/01/19 25 Active liothyronine (CYTOMEL) 5 mcg tablet Take 1 tablet by mouth twice daily 60 tablet 11/04/19 25 Active liothyronine (CYTOMEL) 5 mcg tablet Take 1 tablet by mouth twice daily 60 tablet 10/08/19 25 025 Discontinued Active Problems Problem Noted Date Diagnosed Date Metabolic dysfunction-associated steatohepatitis (MASH) 10/01/2024 Assessment & Plan (10/01/2024 1:59 PM STAYING MACHINE OPERATOR): Update liver enzymes and lipid Diet and exercise as cornerstone of the treatment was discussed Liver elastography requested Chronic fatigue 07/31/2017 Assessment & Plan (08/07/2019 10:15 AM STAYING MACHINE OPERATOR): Exercise recommended Tips to prevent more weight gain discussed Assessment & Plan (07/31/2017 10:07 AM STAYING MACHINE OPERATOR): Pt has sleep disturbance and chronic pain, Needs to follow up with PCP Hypothyroidism 08/21/2013 Overview (12/23/2016): HYPOTHYROIDISM NOS Assessment & Plan (10/01/2024 1:57 PM STAYING MACHINE OPERATOR): Chronic, uncontrolled Increase levothyroxine 100 mcg Continue Cytomel 5 mcg twice daily Assessment & Plan (03/18/2024 4:08 PM CDT): Chronic, stable Update TFTs Continue combination therapy with Cytomel and levothyroxine Assessment & Plan (08/14/2023 11:11 AM STAYING MACHINE OPERATOR): Thyroid function tests, including TSH and free T4 were requested Will adjust dose of Levothyroxine accordingly . If there is a need to make changes, will recheck levels in 2-3 months. Instructions to patient on taking medication properly : in the morning, on an empty stomach , 1 h part from food and/or other meds. Pt wants to try combination with LT3 Will adjust dose of LT4 and start LT3 5 mcg bid Recheck in 3-4 months. Assessment & Plan (08/08/2022 5:14 PM STAYING MACHINE OPERATOR): Thyroid function tests, including TSH and free T4 were requested Will adjust dose of Levothyroxine accordingly . If there is a need to make changes, will recheck levels in 2-3 months. Instructions to patient on taking medication properly : in the morning, on an empty stomach , 1 h part from food and/or other meds. Assessment & Plan (08/09/2021 12:02 PM STAYING MACHINE OPERATOR): Thyroid function tests, including TSH and free T4 were requested Will adjust dose of Levothyroxine accordingly . If there is a need to make changes, will recheck levels in 2-3 months. Instructions to patient on taking medication properly : in the morning, on an empty stomach , 1 h part from food and/or other meds. Assessment & Plan (08/10/2020 11:42 AM STAYING MACHINE OPERATOR): Thyroid function tests, including TSH and free T4 were requested Will adjust dose of Levothyroxine accordingly . If there is a need to make changes, will recheck levels in 2-3 months. Assessment & Plan (08/07/2019 10:12 AM STAYING MACHINE OPERATOR): Will check TSH and free T4 Will adjust dose of Levothyroxine accordingly . If there is a need to make changes, will recheck levels in 2-3 months. Instructions to patient on taking medication properly : in the morning, on an empty stomach , 1 h part from food and/or other meds. Assessment & Plan (08/06/2018 10:20 AM STAYING MACHINE OPERATOR): Will check TSH and free T4 Will adjust dose of Levothyroxine accordingly . If there is a need to make changes, will recheck levels in 2-3 months. Instructions to patient on taking medication properly : in the morning, on an empty stomach , 1 h part from food and/or other meds. If any doses are missed, can take 2-3 tab together ,to make up for the missed dose; make sure at the end to the week, 7 tabs have been taken. Assessment & Plan (07/31/2017 9:56 AM STAYING MACHINE OPERATOR): Check TSH, free T4 Adjust dose of Levothyroxine accordingly . Instructions to patient on taking medication properly Resolved Problems Problem Noted Date Diagnosed Date Resolved Date Nicotine dependence 11/26/2012 08/07/20 19 Overview (12/21/2016): Nicotine addiction Encounters Date Type Department Care Team Description 10/15/2024 6:36 AM STAYING MACHINE OPERATOR - 10/15/2024 11:59 PM STAYING MACHINE OPERATOR Hospital Encounter [facility] [address] [place] [address] Metabolic dysfunction-associated steatohepatitis (MASH) Discharge Disposition: Discharge to home or self care 09/30/2024 2:00 PM STAYING MACHINE OPERATOR Lab [address] [address] Acquired hypothyroidism; Metabolic dysfunction-associated steatohepatitis (MASH) 09/30/2024 1:15 PM STAYING MACHINE OPERATOR Office Visit [facility] [address] [address] Kandace Irby MD Acquired hypothyroidism (Primary Dx); Metabolic dysfunction-associated steatohepatitis (MASH) from Last 3 Months Surgical History Surgery Date Site/Laterality Comments TONSILLECTOMY Tonsillectomy OTHER SURGICAL HISTORY D&C TUBAL LIGATION Bilateral tubal ligation Medical History Medical History Date Comments Gastroesophageal reflux disease GERD Disorder of thyroid Thyroid dise ase Family History Medical History Relation Name Comments Heart disease Brother Heart disease; Heart disease Mother Thyroid disease Other Family histo ry of Thyroid disorder; Stroke Sister Stroke; Relation Name Status Comments Brother Mother Other Sister Social History Tobacco Use Types Packs/Day Years Used Date Smoking Tobacco: Former Cigarettes Q uit: 2018 Smokeless Tobacco: Never Tobacco Cessation:Counseling Given: Not Answered Alcohol Use Standard Drinks/Week Comments No 0 (1 standard drink = 0.6 oz pur e alcohol) AUDIT-C Answer Date Recorded Q1: How often do you have a drink containing alcohol? Never 09/30/2024 Q2: How many drinks containi ng alcohol do you have on a typical day when you are drinking? Patient does not drink Q3: How often do you have si x or more drinks on one occasion? Never 09/30/2024 PHQ-2 Answer Date Recorded PHQ-2 Total Score (If total score is 3 or more points, staff should administer the PHQ-9) 0 09/30/2024 Comments Unknown Sex and Gender Information Value Date Recorded Sex Assigned at Not on file Legal Sex Female 11:24 AM STAYING MACHINE OPERATOR Gender Identity Not on file Sexual Orientation Straight 09/30/2024 1: 19 PM STAYING MACHINE OPERATOR Obstetrics History Last Filed Vital Signs Vital Sign Reading Time Taken Comments Blood Pressure 102/60 09/30/2024 1:25 PM STAYING MACHINE OPERATOR Pulse 80 09/30/2024 1:25 PM STAYING MACHINE OPERATOR Temperature - - Respiratory Rate 18 09/30/2024 1:25 PM STAYING MACHINE OPERATOR Oxygen Saturation - - Inhaled Oxygen Concentration - - Weight 74.1 kg (163 lb 6.4 oz) 09/30/2024 1:25 P M STAYING MACHINE OPERATOR Height 157.5 cm (5' 2 ) 09/30/2024 1:25 PM STAYING MACHINE OPERATOR Body Mass Index 29.89 09/30/2024 1:25 PM STAYING MACHINE OPERATOR Plan of Treatment Health Maintenance Due Date Last Done Comments Breast Cancer Screening-Mammogram 1957 Colon Cancer Screening-Colonoscopy 1957 Hepatitis C Screening 1957 Osteoporosis Screening-Bone Density Scan 1957 DTaP/Tdap/Td Vaccine (1 - Tdap) 1968 Hepatitis B Screening 1975 Pneumococcal vaccine 65+ (1 of 1 - PCV) 2007 Zoster Vaccine (1 of 2) 2007 Well Visit 65+ 2022 Influenza Vaccine (#1) 2024 07/05/2017 Depression Screening 09/30/2025 09/30/2024, 03/18/2024, 08/14/2023, Additional history exists Fall Risk Assessment 09/30/2025 09/30/2024, 03/18/2024, 08/14/2023 Procedures Procedure Name Priority Date/Time Associated Diagnosis Comments US LIVER W ELASTOGRAPHY (C) Schedule Routine, Read Routine (OP Routine) 10/15/2024 7:51 AM STAYING MACHINE OPERATOR Metabolic dysfunction-associate d steatohepatitis (MASH) EGFR Routine 09/30/2024 2:06 PM STAYING MACHINE OPERATOR Metabolic dysfunction-associate d steatohepatitis (MASH) COMPREHENSIVE METABOLIC PANEL Routine 09/30/2024 2:06 PM STAYING MACHINE OPERATOR Metabolic dysfunction-associate d steatohepatitis (MASH) LIPID PANEL Routine 09/30/2024 2:06 PM STAYING MACHINE OPERATOR Metabolic dysfunction-associate d steatohepatitis (MASH) TSH Routine 09/30/2024 2:06 PM STAYING MACHINE OPERATOR Acquired hypothyroidism T4, FREE Routine 09/30/2024 2:06 PM STAYING MACHINE OPERATOR Acquired hypothyroidism from Last 3 Months Results * US Liver W Elastography (C) (10/15/2024 7:51 AM STAYING MACHINE OPERATOR) Anatomical Region Laterality Modality Abdomen N/A Ultrasound 10/15/2024 8:06 AM STAYING MACHINE OPERATOR Impressions 10/15/2024 8:23 AM STAYING MACHINE OPERATOR 1. Mild hepatic steatosis. Otherwise normal sonographic appearance of the liver. 2. Median liver stiffness value of 4.9 kPa, suggesting high probability of being normal (<5 kPa) In the setting of elevated liver function tests, non-fasting state, or vascular congestion, the stage of liver fibrosis may be overestimated. In some patients with non-alcoholic fatty liver disease, the cut-off values for compensated advanced chronic liver disease may be lower (7-9 kPa). In causes other than viral hepatitis and non-alcoholic fatty liver disease, the cut-of values are not well established. Update to the Society of Radiologists in Ultrasound Liver Elastography Consensus Statement. Radiology (2020); 296:263-274. Dictated by: Alphonso Mckeon MD, PHD The radiology attending physician has personally reviewed this study, and had reviewed and/or edited this written report and agrees with it. Electronically signed by: Chico Muniz M.D. Narrative 10/15/2024 8:23 AM STAYING MACHINE OPERATOR EXAMINATION: 1. LIMITED ABDOMINAL SONOGRAM 2. LIVER SHEAR WAVE ELASTOGRAPHY HISTORY: Metabolic dysfunction-associated steatohepatitis COMPARISON: None FINDINGS: LIMITED ABDOMINAL SONOGRAM: Liver: The echotexture is normal. The echogenicity is mildly increased. There is no surface nodularity. No definite focal solid lesions are visualized. In segment 3, there is a 5 x 5 x 3 mm hypoechoic lesion without internal color Doppler flow which is too small to completely characterize but of doubtful clinical significance. Other Findings: There is no perihepatic ascites. LIVER ELASTOGRAPHY: Liver stiffness measurements were obtained on a [employer] Logiq E9 Unit using a curved 1-6 MHz transducer following the Society of Radiologists in Ultrasound guidelines. 10 valid measurements were obtained using a (2D SWE method. The hhsajnwquhvim-gd-npwwgk ratio was was 6.2 %, suggesting a quality data set. The median liver stiffness value was 4.9 kPa. Procedure Note Chico Muniz MD - 10/15/2024 EXAMINATION: 1. LIMITED ABDOMINAL SONOGRAM 2. LIVER SHEAR WAVE ELASTOGRAPHY HISTORY: Metabolic dysfunction-associated steatohepatitis COMPARISON: None FINDINGS: LIMITED ABDOMINAL SONOGRAM: Liver: The echotexture is normal. The echogenicity is mildly increased. There is no surface nodularity. No definite focal solid lesions are visualized. In segment 3, there is a 5 x 5 x 3 mm hypoechoic lesion without internal color Doppler flow which is too small to completely characterize but of doubtful clinical significance. Other Findings: There is no perihepatic ascites. LIVER ELASTOGRAPHY: Liver stiffness measurements were obtained on a [employer] Logiq E9 Unit using a curved 1-6 MHz transducer following the Society of Radiologists in Ultrasound guidelines. 10 valid measurements were obtained using a (2D SWE method. The stkpzcdmnrxks-ap-kcfjmf ratio was was 6.2 %, suggesting a quality data set. The median liver stiffness value was 4.9 kPa. IMPRESSION: 1. Mild hepatic steatosis. Otherwise normal sonographic appearance of the liver. 2. Median liver stiffness value of 4.9 kPa, suggesting high probability of being normal (<5 kPa) In the setting of elevated liver function tests, non-fasting state, or vascular congestion, the stage of liver fibrosis may be overestimated. In some patients with non-alcoholic fatty liver disease, the cut-off values for compensated advanced chronic liver disease may be lower (7-9 kPa). In causes other than viral hepatitis and non-alcoholic fatty liver disease, the cut-of values are not well established. Update to the Society of Radiologists in Ultrasound Liver Elastography Consensus Statement. Radiology (2020); 296:263-274. Dictated by: Alphonso Mckeon MD, PHD The radiology attending physician has personally reviewed this study, and had reviewed and/or edited this written report and agrees with it. Electronically signed by: Chico Muniz M.D. us Kandace Irby MD [facility] US PROCEDURES Final Result * eGFR (09/30/2024 2:06 PM STAYING MACHINE OPERATOR) eGFR >90 >=60 mL/min/1. 73 m2 Comment: Interpretive Data Reference Interval Normal >/= 90 mL/min/1.73m2 Mildly decreased* 60 - 89 mL/min/1.73m2 Mildly to moderately decreased 45 - 59 mL/min/1.73m2 Moderately to severely decreased 30 - 44 mL/min/1.73m2 Severely decreased 15 - 29 mL/min/1.73m2 Kidney Failure < 15 mL/min/1.73m2 *Relative to young adult level Estimated glomerular filtration rate is determined by the 2020 CKD-EPI equation recommended by the National Kidney Foundation (A Unifying Approach to GFR Estimation: Recommendations of the NKF-ASK Task Force on Reassessing the Inclusion of Race in Diagnosing Kidney Disease, JASN 2020). The CKD-EPI equation should not be used for patients with unstable renal function and has not been validated in children and those over 70. Current interpretive data was last reviewed 2021. Blood 09/30/2024 2:06 PM STAYING MACHINE OPERATOR 09/30/2024 9:04 PM STAYING MACHINE OPERATOR Result [facility] Kandace Irby MD LAB BLOOD ORDERABLES Final Resul t Performing Organization Address City/[facility]/[place] Co de Phone Number MIKEY [phone] [employer] [place], [place] [id number] * (ABNORMAL) TSH (09/30/2024 2:06 PM STAYING MACHINE OPERATOR) Thyroid Stimulating Hormone 7.47(H) 0.30 - 4.20 mcIUnit/mL Blood 09/30/2024 2:06 PM STAYING MACHINE OPERATOR 09/30/2024 8:37 PM STAYING MACHINE OPERATOR Result [facility] Kandace Irby MD LAB BLOOD ORDERABLES Final Resul t Performing Organization Address City/[facility]/[place] [address] [address] [place] [address] * T4, free (09/30/2024 2:06 PM STAYING MACHINE OPERATOR) Free T4 0.90 0.90 - 1.70 ng/dL Blood 09/30/2024 2:06 PM STAYING MACHINE OPERATOR 09/30/2024 8:37 PM STAYING MACHINE OPERATOR us Kandace Irby MD LAB BLOOD ORDERABLES Final Resul t MIKEY SERRANO [address] [address] Department [place] [address] * (ABNORMAL) Lipid panel (09/30/2024 2:06 PM STAYING MACHINE OPERATOR) Cholesterol 246(H) 30 - 199 mg/dL Comment: Interpretive Data Ages < or = 19 years Acceptable: <170 mg/dL Borderline high: 170-199 mg/dL High: >or= 200 mg/dL Ages > or = 20 years Desirable: <200 mg/dL Borderline high: 200-239 mg/dL High: >or= 240 mg/dL Literature References: 1. Expert Panel on Integrated Guidelines for Cardiovascular Health and Risk Reduction in Children and Adolescents. Pediatrics 2011;128:S213 2. NCEP Expert Panel. Circulation 2004;110:227 Current Interpretive Data was last revised on 2018. Triglycerides 345(H) <=149 mg/dL MIKEY SERRANO Comment: Interpretive Data Ages < or = 9 years Acceptable: <75 mg/dL Borderline high: 75-99 mg/dL High: >or= 100 mg/dL Ages 10 to 20 years Acceptable: <90 mg/dL Borderline high: 90-129 mg/dL High: >or= 130 mg/dL Ages > or = 20 years Desirable: <150 mg/dL Borderline high: 150-199 mg/dL High: 200-499 mg/dL Very high: >or= 499 mg/dL Literature References: 1. Expert Panel on Integrated Guidelines for Cardiovascular Health and Risk Reduction in Children and Adolescents. Pediatrics 2011;128:S213 2. NCEP Expert Panel. Circulation 2004;110:227 Current Interpretive Data was last revised on 2018. HDL 29(L) >=40 mg/dL MIKEY SERRANO Comment: Interpretive Data Ages < or = 19 years Acceptable: >45 mg/dL Borderline low: 40-45 mg/dL Low: <40 mg/dL Ages > or = 20 years Desirable: >or= 60 mg/dL Low: <40 mg/dL Literature References: 1. Expert Panel on Integrated Guidelines for Cardiovascular Health and Risk Reduction in Children and Adolescents. Pediatrics 2011;128:S213 2. NCEP Expert Panel. Circulation 2004;110:227 Current Interpretive Data was last revised on 2018. LDL, calculated 152(H) <=129 mg/dL MIKEY SERRANO Comment: Interpretive Data Ages < or = 19 years Acceptable: <110 mg/dL Borderline high: 110-129 mg/dL High: >or= 130 mg/dL Ages > or = 20 years Optimal: <100 mg/dL Near optimal: 100-129 mg/dL Borderline high: 130-159 mg/dL High: >160 mg/dL Calculated using the Good LDL-C estimating equation. This equation was implemented on 2024. Prior to this date LDL-C was estimated using the Friedewald equation. Literature References: 1. Expert Panel on Integrated Guidelines for Cardiovascular Health and Risk Reduction in Children and Adolescents. Pediatrics 2011;128:S213 2. NCEP Expert Panel. Circulation 2004;110:227 3. Good M et al. VERENA Cardiol. 2020 January 16;5(5):540-548. doi: 10.1001/jamacardio.2020.0013 Current Interpretive Data was last revised on 2024. Non-HDL Cholesterol 217 mg/dL MIKEY SERRANO Comment: Interpretive Data Ages < or = 19 years Acceptable: <120 mg/dL Borderline high: 120-144 mg/dL High: >145 mg/dL Ages > or = 20 years When triglycerides are >200 mg/dL, Non-HDL cholesterol is a secondary target of therapy with treatment goals that are 30 mg/dL greater than the LDL cholesterol target. Literature References: 1. Expert Panel on Integrated Guidelines for Cardiovascular Health and Risk Reduction in Children and Adolescents. Pediatrics 2011;128:S213 2. NCEP Expert Panel. Circulation 2004;110:227 Current Interpretive Data was last revised on 2018. Chol/HDL ratio 8 MIKEY Blood 09/30/2024 2:06 PM STAYING MACHINE OPERATOR 09/30/2024 8:37 PM STAYING MACHINE OPERATOR Kandace Irby MD LAB BLOOD ORDERABLES Final Resul t Performing Organization Address City/[facility]/ZIP Co de Phone Number MIKEY SERRANO [phone] [address] Department [place] [address] * Comprehensive metabolic panel (09/30/2024 2:06 PM STAYING MACHINE OPERATOR) Sodium 140 135 - 145 mmol/L Potassium, pl 4.3 3.3 - 4.9 mmol/L [facility] Chloride 105 97 - 110 mmol/L [facility] CO2 23 22 - 32 mmol/L [facility] Anion gap 12 2 - 15 mmol/L [facility] BUN 10 6 - 25 mg/dL [facility] Creatinine 0.71 0.60 - 1.10 mg/dL [facility] Glucose 86 70 - 199 mg/dL [facility] Comment: Interpretive Data Fasting glucose >/= 126 mg/dl is diagnostic for diabetes. Fasting is defined as no caloric intake for at least 8 hours. Fasting glucose between 100 mg/dl to 125 mg/dl is diagnostic of prediabetes. In a patient with classic symptoms of hyperglycemia or hyperglycemic crisis, a random glucose >/= 200 mg/dl is diagnostic for diabetes. In the absence of unequivocal hyperglycemia, results should be confirmed by repeat testing. The classification and Diagnosis of Diabetes Diabetes Care 202; 46: S19-S40. Current interpretive data was last revised 2022. Calcium 9.4 8.5 - 10.3 mg/dL [facility] Bilirubin, total 0.3 0.1 - 1.2 mg/dL [facility] Protein, pl 7.5 6.5 - 8.5 g/dL [facility] Albumin 4.7 3.5 - 5.0 g/dL [facility] Alk phos 73 40 - 130 Units/L [facility] ALT 34 7 - 45 Units/L [facility] AST 30 10 - 45 Units/L [facility] Blood 09/30/2024 2:06 PM STAYING MACHINE OPERATOR 09/30/2024 8:37 PM STAYING MACHINE OPERATOR Kandace Irby MD LAB BLOOD ORDERABLES Final Resul t MIKEY SERRANO [id number] [address] [place] [address] from Last 3 Months Insurance [employer] Care Teams Calender Roll Press Operator Relationship Specialty Start Date End Date Vanessa Patterson MD PCP - General 08/25/14
--- OUTSIDE RECORDS SUMMARY | 2024-11-22 15:45 | XMS_ITS | Referral Summary ---
Author Organization [facility] Address [address] [place] [address] Care Team Providers Care Child Psychologist Name Role Phone Vanessa Patterson MD Primary Care Provider [phone] Source Comments [facility],non-owned Affiliates and Associated Physician Practices is amultiple site organization consisting of ambulatory clinics and hospital sitesin [place], [place], [place] and [place]. This disclosure is being madepursuant to the Care Everywhere program and may not contain all information available regarding this patient. Last updated 18.[facility] Encounters Date Type Department Care Team Description 09/25/2024 Travel 09/25/2024 10:30 AM FIRE ALARM INSTALLER Office Visit [facility] - PUMP STATION OPERATOR [phone] [facility], [facility] [address] [place] [address] Crystal Montelongo MD Lichen sclerosus et atrophicus of the vulva (Primary Dx) from Last 3 Months Allergies Active Allergy Reactions Criticality Noted Date Comments Contrast-Iodinated Agents Fo r Ct/Other Rash High 03/26/2019 Causes frozen joints Medications * Be aware that medications may not be up to date on this document. Alwaysverify current medications with the patient. Medication Sig Dispensed Refills Start Date End Date Status aspirin EC (Ecotrin) 81 MG tablet Take 1 (one) tablet by mouth once daily Active ibuprofen (Motrin) 800 MG tablet Take 1 (one) tablet by mouth every 8 hours as needed For pain. 12/23/2022 Active pantoprazole EC (Protonix) 40 MG tablet Take 1 (one) tablet by mouth once daily 03/21/2023 Active liothyronine (Cytomel) 5 MCG tablet Take 1 (one) tablet by mouth 2 times daily 08/19/2023 Active levothyroxine (Synthroid) 88 MCG tablet Take 1 (one) tablet by mouth once daily 01/17/2024 Active fluocinonide (Lidex) 0.05 % ointmentIndications:L ichen sclerosus et atrophicus of the vulva Apply to external vulvar tissue twice daily. 30 g 2 09/25/2024 Active Active Problems Problem Noted Date Diagnosed Date Lichen sclerosus et atrophicus of the vulva 10/19 Lumbar stenosis 10/02/2018 Chronic fatigue 07/31/2017 03/28/2023 Overview (03/28/2023): Last Assessment & Plan: Exercise recommended Tips to prevent more weight gain discussed Hypothyroidism 08/21/2013 Overview (11/01/2021): HYPOTHYROIDISM NOS Last Assessment & Plan: Thyroid [...] Comments Blood Pressure 128/68 09/25/2024 10:32 AM FIRE ALARM INSTALLER Pulse - - Temperature 36.2 C (97.2 F) 10/03/2023 10:18 AM FIRE ALARM INSTALLER Respiratory Rate - - Oxygen Saturation - - Inhaled Oxygen Concentration - - Weight 71.8 kg (158 lb 3.2 oz) 09/25/2024 10:32 AM FIRE ALARM INSTALLER Height 157.5 cm (5' 2 ) 09/25/2024 10:32 AM FIRE ALARM INSTALLER Body Mass Index 28.94 09/25/2024 10:32 AM FIRE ALARM INSTALLER Plan of Treatment Not on file Care Teams Child Psychologist Relationship Specialty Start Date End Date Vanessa Patterson MD [address] [place] [address] PCP - General 08/31/21
--- OUTSIDE RECORDS SUMMARY | 2024-11-22 15:45 | XMS_ITS | Referral Summary ---
Author Organization [facility] Office Building [address] [place] [id number] Care Team Providers Care Tool Filer Hand Name Role Phone Vanessa Patterson MD Primary Care Provider [phone] Encounters Date Type Department Care Team Description 10/15/2024 6:36 AM SOCK EXAMINER - 10/15/2024 11:59 PM SOCK EXAMINER Hospital Encounter [facility]) [address] [place] [id number] Metabolic dysfunction-associated steatohepatitis (MASH) Discharge Disposition: Discharge to home or self care 09/30/2024 2:00 PM SOCK EXAMINER Lab [address] [address] Acquired hypothyroidism; Metabolic dysfunction-associated steatohepatitis (MASH) 09/30/2024 1:15 PM SOCK EXAMINER Office Visit [facility] [address], [place] [address] Kandace Irby MD Acquired hypothyroidism (Primary Dx); Metabolic dysfunction-associated steatohepatitis (MASH) from Last 3 Months Allergies Active Allergy [...] 10/01/2024 Assessment & Plan (10/01/2024 1:59 PM SOCK EXAMINER): Update liver enzymes and lipid Diet and exercise as cornerstone of the treatment was discussed Liver elastography requested Chronic fatigue 07/31/2017 Assessment & Plan (08/07/2019 10:15 AM SOCK EXAMINER): Exercise recommended Tips to prevent more weight gain discussed Assessment & Plan (07/31/2017 10:07 AM SOCK EXAMINER): Pt has sleep disturbance and chronic pain, Needs to follow up with PCP Hypothyroidism 08/21/2013 Overview (12/23/2016): HYPOTHYROIDISM NOS Assessment & Plan (10/01/2024 1:57 PM SOCK EXAMINER): Chronic, uncontrolled Increase levothyroxine 100 mcg Continue Cytomel 5 mcg twice daily Assessment & Plan (03/18/2024 4:08 PM CDT): Chronic, stable Update TFTs Continue combination therapy with Cytomel and levothyroxine Assessment & Plan (08/14/2023 11:11 AM SOCK EXAMINER): Thyroid function tests, including TSH and free [...] months. Assessment & Plan (08/08/2022 5:14 PM SOCK EXAMINER): Thyroid function tests, including TSH and free T4 were requested Will adjust dose of Levothyroxine accordingly . If there is a need to make changes, will recheck levels in 2-3 months. Instructions to patient on taking medication properly : in the morning, on an empty stomach , 1 h part from food and/or other meds. Assessment & Plan (08/09/2021 12:02 PM SOCK EXAMINER): Thyroid function tests, including TSH and free T4 were requested Will adjust dose of Levothyroxine accordingly . If there is a need to make changes, will recheck levels in 2-3 months. Instructions to patient on taking medication properly : in the morning, on an empty stomach , 1 h part from food and/or other meds. Assessment & Plan (08/10/2020 11:42 AM SOCK EXAMINER): Thyroid function tests, including TSH and free T4 were requested Will adjust dose of Levothyroxine accordingly . If there is a need to make changes, will recheck levels in 2-3 months. Assessment & Plan (08/07/2019 10:12 AM SOCK EXAMINER): Will check TSH and free T4 Will adjust dose of Levothyroxine accordingly . If there is a need to make changes, will recheck levels in 2-3 months. Instructions to patient on taking medication properly : in the morning, on an empty stomach , 1 h part from food and/or other meds. Assessment & Plan (08/06/2018 10:20 AM SOCK EXAMINER): Will check TSH and free T4 Will [...] taken. Assessment & Plan (07/31/2017 9:56 AM SOCK EXAMINER): Check TSH, free T4 Adjust dose of Levothyroxine accordingly . Instructions to patient on taking medication properly Resolved Problems Problem Noted Date Diagnosed Date Resolved Date Nicotine dependence 11/26/2012 08/07/20 19 Overview (12/21/2016): Nicotine addiction Social History Tobacco Use Types Packs/Day Years [...] on file Legal Sex Female 11:24 AM SOCK EXAMINER Gender Identity Not on file Sexual Orientation Straight 09/30/2024 1: 19 PM SOCK EXAMINER Last Filed Vital Signs Vital Sign Reading Time Taken Comments Blood Pressure 102/60 09/30/2024 1:25 PM SOCK EXAMINER Pulse 80 09/30/2024 1:25 PM SOCK EXAMINER Temperature - - Respiratory Rate 18 09/30/2024 1:25 PM SOCK EXAMINER Oxygen Saturation - - Inhaled Oxygen Concentration - - Weight 74.1 kg (163 lb 6.4 oz) 09/30/2024 1:25 P M SOCK EXAMINER Height 157.5 cm (5' 2 ) 09/30/2024 1:25 PM SOCK EXAMINER Body Mass Index 29.89 09/30/2024 1:25 PM SOCK EXAMINER Plan of Treatment Not on file Procedures Procedure Name Priority Date/Time Associated Diagnosis Comments US LIVER W ELASTOGRAPHY (C) Schedule Routine, Read Routine (OP Routine) 10/15/2024 7:51 AM SOCK EXAMINER Metabolic dysfunction-associate d steatohepatitis (MASH) EGFR Routine 09/30/2024 2:06 PM SOCK EXAMINER Metabolic dysfunction-associate d steatohepatitis (MASH) COMPREHENSIVE METABOLIC PANEL Routine 09/30/2024 2:06 PM SOCK EXAMINER Metabolic dysfunction-associate d steatohepatitis (MASH) LIPID PANEL Routine 09/30/2024 2:06 PM SOCK EXAMINER Metabolic dysfunction-associate d steatohepatitis (MASH) TSH Routine 09/30/2024 2:06 PM SOCK EXAMINER Acquired hypothyroidism T4, FREE Routine 09/30/2024 2:06 PM SOCK EXAMINER Acquired hypothyroidism from Last 3 Months Results * US Liver W Elastography (C) (10/15/2024 7:51 AM SOCK EXAMINER) Anatomical Region Laterality Modality Abdomen N/A Ultrasound 10/15/2024 8:06 AM SOCK EXAMINER Impressions 10/15/2024 8:23 AM SOCK EXAMINER 1. Mild hepatic steatosis. Otherwise normal sonographic [...] Chico Muniz M.D. Narrative 10/15/2024 8:23 AM SOCK EXAMINER EXAMINATION: 1. LIMITED ABDOMINAL SONOGRAM 2. LIVER [...] stiffness measurements were obtained on a General [employer] Logiq E9 Unit using a curved 1-6 MHz transducer following the Society of Radiologists in Ultrasound guidelines. 10 valid measurements were obtained using a (2D SWE method. The siwtbqeqbqceh-uv-jlhocp ratio was was 6.2 %, suggesting a [...] stiffness measurements were obtained on a General [employer] Logiq E9 Unit using a curved 1-6 MHz transducer following the Society of Radiologists in Ultrasound guidelines. 10 valid measurements were obtained using a (2D SWE method. The miwzcrrjzxzgf-tw-urelmi ratio was was 6.2 %, suggesting a [...] Chico Muniz M.D. us Kandace Irby MD IMG US PROCEDURES Final Result * eGFR (09/30/2024 2:06 PM SOCK EXAMINER) eGFR >90 >=60 mL/min/1. 73 m2 Comment: [...] of Race in Diagnosing Kidney Disease, JASN 202). The CKD-EPI equation should not be used for patients with unstable renal function and has not been validated in children and those over 70. Current interpretive data was last reviewed 2021. Blood 09/30/2024 2:06 PM SOCK EXAMINER 09/30/2024 9:04 PM SOCK EXAMINER us Kandace Irby MD LAB BLOOD ORDERABLES Final Resul t Performing Organization Address [facility] de Phone Number MIKEY SERRANO [address] [address] [facility] [place] [address] * (ABNORMAL) TSH (09/30/2024 2:06 PM SOCK EXAMINER) Thyroid Stimulating Hormone 7.47(H) 0.30 - 4.20 mcIUnit/mL Blood 09/30/2024 2:06 PM SOCK EXAMINER 09/30/2024 8:37 PM SOCK EXAMINER us Kandace Irby MD LAB BLOOD ORDERABLES Final Resul t Performing Organization Address [facility] de Phone Number MIKEY SERRANO [address] [address] [place] [address] * T4, free (09/30/2024 2:06 PM SOCK EXAMINER) Free T4 0.90 0.90 - 1.70 ng/dL Blood 09/30/2024 2:06 PM SOCK EXAMINER 09/30/2024 8:37 PM SOCK EXAMINER us Kandace Irby MD LAB BLOOD ORDERABLES Final Resul t Performing Organization Address [facility] de Phone Number MIKEY [address] [address] [place] [address] * (ABNORMAL) Lipid panel (09/30/2024 2:06 PM SOCK EXAMINER) Cholesterol 246(H) 30 - 199 mg/dL Comment: [...] on 2018. Triglycerides 345(H) <=149 mg/dL MIKEY Comment: Interpretive Data Ages < or = [...] on 2018. HDL 29(L) >=40 mg/dL MIKEY Comment: Interpretive Data Ages < or = [...] 2018. LDL, calculated 152(H) <=129 mg/dL [facility]KEY Comment: Interpretive Data Ages < or = [...] NCEP Expert Panel. Circulation 2004;110:227 3. Good Bonds et al. VERENA Cardiol. 2020 January 16;5(5):540-543. doi: 10.1001/jamacardio.2020.0013 Current Interpretive Data was last revised on 2024. Non-HDL Cholesterol 217 mg/dL [facility] Comment: Interpretive Data Ages < or = [...] last revised on 2018. Chol/HDL ratio 8 [facility] Blood 09/30/2024 2:06 PM SOCK EXAMINER 09/30/2024 8:37 PM SOCK EXAMINER us Kandace Irby MD LAB BLOOD ORDERABLES Final Resul t [facility] [address] [address] Department of Laboratories [place], [place] [id number] * Comprehensive metabolic panel (09/30/2024 2:06 PM SOCK EXAMINER) Sodium 140 135 - 145 mmol/L Potassium, pl 4.3 3.3 - 4.9 mmol/L [facility] Chloride 105 97 - 110 mmol/L [facility] CO2 23 22 - 32 mmol/L [facility] Anion gap 12 2 - 15 mmol/L [facility] BUN 10 6 - 25 mg/dL [facility] Creatinine 0.71 0.60 - 1.10 mg/dL [facility] Glucose 86 70 - 199 mg/dL [facility] Comment: Interpretive Data Fasting glucose >/= 126 [...] Units/L [facility] Blood 09/30/2024 2:06 PM SOCK EXAMINER 09/30/2024 8:37 PM SOCK EXAMINER us Kandace Irby MD LAB BLOOD ORDERABLES Final Resul t [facility] [address] [address] Department [place] [address] from Last 3 Months Insurance [facility] MEDICARE SOL[employer] Care Teams Tool Filer Hand Relationship Specialty Start Date End Date Vanessa Patterson MD PCP - General 08/25/14
--- OUTSIDE RECORDS SUMMARY | 2024-11-22 15:45 | XMS_ITS | Clinical Summary ---
Author Organization [facility] [employer] Address [address] [place] [address] Care Team Providers Care Manufacturing Production Manager Name Role Phone Vanessa Patterson MD Primary Care Provider [phone] Source Comments [facility] [employer],non-owned Affiliates and Associated Physician Practices is amultiple site organization consisting of ambulatory clinics and hospital sitesin [place], [place], [place] and [place]. This disclosure is being madepursuant to the Care Everywhere program and may not contain all information available regarding this patient. Last updated 18.[facility] [employer] Allergies Active Allergy Reactions Criticality Noted Date [...] h part from food and/or other meds. 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) 09/25/2024 Travel from Last 3 Months Family History Medical History Relation Name Comments CAD (Coronary Artery Disease) Father Cancer - Colon Father Diabetes - Type 2 Father Cancer - Breast Maternal Aunt CAD (Coronary Artery Disease) Maternal Grandfather Depression Maternal Grandfather Hypertension Maternal Grandfather CAD (Coronary Artery Disease) Maternal Grandmother Hypertension Maternal Grandmother Osteoporosis Maternal Grandmother CAD (Coronary Artery Disease) Mother CAD (Coronary Artery Disease) Paternal Grandfather Hypertension Paternal Grandfather CAD (Coronary Artery Disease) Paternal Grandmother Hypertension Paternal Grandmother Depression Sister Relation Name Status Comments Father Maternal Aunt Maternal Grandfather Maternal Grandmother Mother Paternal Grandfather Paternal Grandmother Sister Social History Tobacco Use Types Packs/Day [...] Comments Blood Pressure 128/68 09/25/2024 10:32 AM TRAUMA SURGEON Pulse - - Temperature 36.2 C (97.2 F) 10/03/2023 10:18 AM TRAUMA SURGEON Respiratory Rate - - Oxygen Saturation - - Inhaled Oxygen Concentration - - Weight 71.8 kg (158 lb 3.2 oz) 09/25/2024 10:32 AM TRAUMA SURGEON Height 157.5 cm (5' 2 ) 09/25/2024 10:32 AM TRAUMA SURGEON Body Mass Index 28.94 09/25/2024 10:32 AM TRAUMA SURGEON Plan of Treatment Health Maintenance Due Date Last Done Comments COLOGUARD (AGES 45-75) - COLON CA SCREENING 1957 COLON MONITORING 1957 COLONOSCOPY - COLON CA SCREENING 1957 CT COLONOGRAPHY - COLON CA SCREENING 1957 Colorectal Cancer Screening 1957 FIT - COLON CA SCREENING 1957 FLEX SIG - COLON CA SCREENING 1957 LIPID TESTING 1957 HEPATITIS C SCREENING 03/10/1975 DTAP/TDAP/TD VACCINES (1 - Tdap) 1976 PNEUMOCOCCAL VACCINE 50+ (1 of 1 - PCV) 2007 ZOSTER VACCINE (1 of 2) 2007 SCREENING FOR DIABETES 11/01/2021 COVID-19 VACCINE (1 - 2023-2 5 season) 2024 INFLUENZA VACCINE (#1) 2024 09/03/2019, 2016 MAMMOGRAM 09/02/2024 09/02/2022 (Done Outside Per Report) DEPRESSION SCREENING 09/18/2024 03/28/2023 MEDICARE AWV CALENDAR YEAR 2024 Respiratory Syncytial Virus (RSV) Vaccine Pt: or over 60 yrs (1 - 1-dose 75+ series) 2032 BONE DENSITY TESTING Completed 10/19/2020 (Done Outside Per Patient) HEPATITIS B VACCINE Aged Out No longe r eligible based on patient's age to complete this topic HIB VACCINE Aged Out No longer eligi ble based on patient's age to complete this topic HPV VACCINE Aged Out No longer eligi ble based on patient's age to complete this topic MENINGOCOCCAL (Group B) VACCINE Aged Out No longer eligible based on patient's age to complete this topic MENINGOCOCCAL VACCINE Aged Out No prasanna zina eligible based on patient's age to complete this topic Care Teams Manufacturing Production Manager Relationship Specialty Start Date End Date Vanessa Patterson MD [address] [place] [address] PCP - General 08/31/21
== END 2024-11-22 15:40 | disposition home or self-care (01) ==
LOC: ANHIMG 15:43
PROVIDERS: PCP Family Medicine; Visit Provider Family Medicine
DX: Z12.31 Encounter for screening mammogram for malignant neoplasm of breast (principal)
CPT/HCPCS: 77063; 77067

== ENCOUNTER 2025-01-07 10:32 | Outpatient (CLI) | payer MEDICARE, SELFPAY ==
--- NOTE | ~2025-01-07 | US_ITS ---
EXAMINATION: US soft tissue upper back DATE: 01/07/2025 10:59 INDICATION: Localized mass at the posterior chest TECHNIQUE: Multiple grayscale and Doppler ultrasound images of the region of concern at the mid poste rior chest were obtained. COMPARISON: None FINDINGS: Lesion of concern corresponds to a 1.3 x 1.1 x 1.0 cm heterogeneously hypoechoic and very hypoechoic likely complex cystic lesion with prominent posterior acoustic enhancement. No surrounding hyperemia to suggest abscess or internal vascular flow on color Doppler to suggest neoplasm. The lesion is loca rosa in the subdermal fat 1 mm from the skin surface. On cine images there appears be a subtle hypoech oic tract extending towards the skin surface. Constellation of findings would be most consistent with an epidermoid cyst. IMPRESSION: 1. 1.3 cm complex cystic subdermal lesion at the region of concern most consistent with an epidermoid cyst. Reviewed, dictated and finalized at location A. IMPRESSION: 1. 1.3 cm complex cystic subdermal lesion at the region of concern most consist ent with an epidermoid cyst.
--- OUTSIDE RECORDS SUMMARY | 2025-01-07 12:08 | XMS_ITS | Clinical Summary ---
Author Organization [facility] Physician Office Building [address] [place] [phone] Care Team Providers Care Hydrometer Finisher Name Role Phone Vanessa Patterson MD Primary Care Provider [phone] Allergies Active Allergy Reactions Criticality Noted Date Comments Iodinated Contrast Media Rash High 03/26/2019 Causes frozen joints Medications aspirin 81 mg enteric coated tablet Take 1 tablet (81 mg total) by mouth daily Active nystatin-triamcin olone ointment nystatin-triam cinolone 100,000 unit/gram-0.1 % topical ointment APPLY TOPICALLY TO VULVA TWICE DAILY FOR 4 WEEKS THEN ONCE A DAY FOR 4 WEEKS THEN 2 3 TIMES WEEKLY FOR MAINTENANCE Active fluocinonide (LIDEX) 0.05 % ointment APPLY OINTMENT TO EXTERNAL VULVAR TISSUE TWICE DAILY 022 Active estradioL (ESTRACE) 0.01 % (0.1 mg/gram) vaginal cream estradiol 0.01% (0.1 mg/gram) vaginal cream Active pantoprazole DR (PROTONIX) 40 mg EC tablet Take 1 tablet (40 mg total) by mouth daily 023 Active ibuprofen (ADVIL,MOTRIN) 800 mg tablet Take 1 tablet (800 mg total) by mouth every 8 (eight) hours as needed 023 Active levothyroxine (SYNTHROID) 100 mcg tablet Take 1 tablet (100 mcg total) by mouth daily 90 tablet 3 025 Active liothyronine (CYTOMEL) 5 mcg tabletIndications :Acquired hypothyroidism Take 1 tablet by mouth twice daily 60 tablet 04/14/2 025 Active liothyronine (CYTOMEL) 5 mcg tabletIndications :Acquired hypothyroidism Take 1 tablet by mouth twice daily 60 tablet 025 2024 Discontinued Active Problems Problem Noted Date Diagnosed Date Metabolic dysfunction-associated steatohepatitis (MASH) 10/01/2024 Assessment & Plan (10/01/2024 1:59 PM SALES DRIVER): Update liver enzymes and lipid Diet and exercise as cornerstone of the treatment was discussed Liver elastography requested Chronic fatigue 07/31/2017 Assessment & Plan (08/07/2019 10:15 AM SALES DRIVER): Exercise recommended Tips to prevent more weight gain discussed Assessment & Plan (07/31/2017 10:07 AM SALES DRIVER): Pt has sleep disturbance and chronic pain, Needs to follow up with PCP Hypothyroidism 08/21/2013 Overview (12/23/2016): HYPOTHYROIDISM NOS Assessment & Plan (10/01/2024 1:57 PM SALES DRIVER): Chronic, uncontrolled Increase levothyroxine 100 mcg Continue Cytomel 5 mcg twice daily Assessment & Plan (03/18/2024 4:08 PM CDT): Chronic, stable Update TFTs Continue combination therapy with Cytomel and levothyroxine Assessment & Plan (08/14/2023 11:11 AM SALES DRIVER): Thyroid function tests, including TSH and free [...] months. Assessment & Plan (08/08/2022 5:14 PM SALES DRIVER): Thyroid function tests, including TSH and free T4 were requested Will adjust dose of Levothyroxine accordingly . If there is a need to make changes, will recheck levels in 2-3 months. Instructions to patient on taking medication properly : in the morning, on an empty stomach , 1 h part from food and/or other meds. Assessment & Plan (08/09/2021 12:02 PM SALES DRIVER): Thyroid function tests, including TSH and free T4 were requested Will adjust dose of Levothyroxine accordingly . If there is a need to make changes, will recheck levels in 2-3 months. Instructions to patient on taking medication properly : in the morning, on an empty stomach , 1 h part from food and/or other meds. Assessment & Plan (08/10/2020 11:42 AM SALES DRIVER): Thyroid function tests, including TSH and free T4 were requested Will adjust dose of Levothyroxine accordingly . If there is a need to make changes, will recheck levels in 2-3 months. Assessment & Plan (08/07/2019 10:12 AM SALES DRIVER): Will check TSH and free T4 Will adjust dose of Levothyroxine accordingly . If there is a need to make changes, will recheck levels in 2-3 months. Instructions to patient on taking medication properly : in the morning, on an empty stomach , 1 h part from food and/or other meds. Assessment & Plan (08/06/2018 10:20 AM SALES DRIVER): Will check TSH and free T4 Will [...] taken. Assessment & Plan (07/31/2017 9:56 AM SALES DRIVER): Check TSH, free T4 Adjust dose of Levothyroxine accordingly . Instructions to patient on taking medication properly Resolved Problems Problem Noted Date Diagnosed Date Resolved Date Nicotine dependence 11/26/2012 08/07/20 19 Overview (12/21/2016): Nicotine addiction Encounters Date Type Department Care Team Description 10/15/2024 6:36 AM SALES DRIVER - 10/15/2024 11:59 PM SALES DRIVER Hospital Encounter [facility] [address] [place] [address] Metabolic dysfunction-associated steatohepatitis (MASH) Discharge Disposition: Discharge to home or self care from Last 3 Months Surgical History Surgery [...] on file Legal Sex Female 11:24 AM SALES DRIVER Gender Identity Not on file Sexual Orientation Straight 09/30/2024 1: 19 PM SALES DRIVER Obstetrics History Last Filed Vital Signs Vital Sign Reading Time Taken Comments Blood Pressure 102/60 09/30/2024 1:25 PM SALES DRIVER Pulse 80 09/30/2024 1:25 PM SALES DRIVER Temperature - - Respiratory Rate 18 09/30/2024 1:25 PM SALES DRIVER Oxygen Saturation - - Inhaled Oxygen Concentration - - Weight 74.1 kg (163 lb 6.4 oz) 09/30/2024 1:25 P M SALES DRIVER Height 157.5 cm (5' 2 ) 09/30/2024 1:25 PM SALES DRIVER Body Mass Index 29.89 09/30/2024 1:25 PM SALES DRIVER Plan of Treatment Health Maintenance Due Date Last Done Comments Breast Cancer Screening-Mammogram 1957 Colon Cancer Screening-Colonoscopy 1957 Hepatitis C Screening 1957 Osteoporosis Screening-Bone Density Scan 1957 DTaP/Tdap/Td Vaccine (1 - Tdap) 1968 Hepatitis B Screening 1975 Pneumococcal vaccine 65+ (1 of 1 - PCV) 2007 Zoster Vaccine (1 of 2) 2007 Well Visit 65+ 2022 Influenza Vaccine (Season Ended) 2025 07/05/20 17 Depression Screening 09/30/2025 09/30/2024, 03/18/2024, 08/14/2023, Additional history exists Fall Risk Assessment 09/30/2025 09/30/2024, 03/18/2024, 08/14/2023 Procedures Procedure Name Priority Date/Time Associated Diagnosis Comments US LIVER W ELASTOGRAPHY (C) Schedule Routine, Read Routine (OP Routine) 10/15/2024 7:51 AM SALES DRIVER Metabolic dysfunction-associate d steatohepatitis (MASH) from Last 3 Months Results * US Liver W Elastography (C) (10/15/2024 7:51 AM SALES DRIVER) Anatomical Region Laterality Modality Abdomen N/A Ultrasound 10/15/2024 8:06 AM SALES DRIVER Impressions 10/15/2024 8:23 AM SALES DRIVER 1. Mild hepatic steatosis. Otherwise normal sonographic [...] Chico Muniz M.D. Narrative 10/15/2024 8:23 AM SALES DRIVER EXAMINATION: 1. LIMITED ABDOMINAL SONOGRAM 2. LIVER [...] stiffness measurements were obtained on a [employer] E9 Unit using a curved 1-6 MHz transducer following the Society of Radiologists in Ultrasound guidelines. 10 valid measurements were obtained using a (2D SWE method. The ycdxnaqlimjct-vm-fyaqcz ratio was was 6.2 %, suggesting a [...] stiffness measurements were obtained on a [employer] E9 Unit using a curved 1-6 MHz transducer following the Society of Radiologists in Ultrasound guidelines. 10 valid measurements were obtained using a (2D SWE method. The qnweobqpuddsf-wb-zopqmi ratio was was 6.2 %, suggesting a [...] Irby MD IMG US PROCEDURES Final Result from Last 3 Months Insurance [facility] MEDICARE ADVANTAGE [facility] MEDICARE ADVANTAGE [employer] Care Teams Hydrometer Finisher Relationship Specialty Start Date End Date Vanessa Patterson MD PCP - General 08/25/14
--- OUTSIDE RECORDS SUMMARY | 2025-01-07 12:08 | XMS_ITS | Clinical Summary ---
Author Organization [facility] [employer] Address [address] [place] [address] Care Team Providers Care Hospice Care Consultant Name Role Phone Vanessa Patterson MD Primary Care Provider [phone] Source Comments [facility] [employer],non-owned Affiliates and Associated Physician Practices is amultiple site organization consisting of ambulatory clinics and hospital sitesin [place], [place], [place] and [place]. This disclosure is being madepursuant to the Care Everywhere program and may not contain all information available regarding this patient. Last updated 18.[facility] [employer] Allergies Active Allergy Reactions Criticality Noted Date Comments Contrast-Iodinated Agents Fo r Ct/Other Rash High 03/26/2019 Causes frozen joints Medications * Be aware that medications may not be up to date on this document. Alwaysverify current medications with the patient. aspirin EC (Ecotrin) 81 MG tablet Take [...] daily 01/17/2024 Active fluocinonide (Lidex) 0.05 % ointmentIndicat ions:Lichen sclerosus et atrophicus of the vulva Apply [...] Encounters Date Type Department Care Team Description 11/25/2024 Travel from Last 3 Months Family History [...] Date Recorded PHQ2 TOTAL SCORE 0 03/21/2023 Comments No Sex and Gender Information Value Date Recorded Sex Assigned at Not on file Legal Sex Female 6:56 AM COMMUNITY HEALTH COORDINATOR Gender Identity Not on file Sexual Orientation Not on file Last Filed Vital Signs Vital Sign Reading Time Taken Comments Blood Pressure 128/68 09/25/2024 10:32 AM COMMUNITY HEALTH COORDINATOR Pulse - - Temperature 36.2 C (97.2 F) 10/03/2023 10:18 AM COMMUNITY HEALTH COORDINATOR Respiratory Rate - - Oxygen Saturation - - Inhaled Oxygen Concentration - - Weight 71.8 kg (158 lb 3.2 oz) 09/25/2024 10:32 AM COMMUNITY HEALTH COORDINATOR Height 157.5 cm (5' 2 ) 09/25/2024 10:32 AM COMMUNITY HEALTH COORDINATOR Body Mass Index 28.94 09/25/2024 10:32 AM COMMUNITY HEALTH COORDINATOR Plan of Treatment Upcoming Encounters Date Type Department Care Team (Late st Contact Info) Description 04/22/2025 9:50 AM CDT Office Visit [facility] - TRACK SUPERVISOR [address], [facility] [address] [place] [address] Crystal Montelongo MD [address] [facility] [address] [place] [address] Health Maintenance Due Date Last Done Comments [...] VACCINE (1 - 2023-2 5 season) 2024 MAMMOGRAM 09/02/2024 09/02/2022 (Done Outside Per Report) DEPRESSION SCREENING 09/18/2024 03/28/2023 MEDICARE AWV CALENDAR YEAR 2024 INFLUENZA VACCINE (Season Ended) 2025 09/03/2019, 07/05/2017 Respiratory Syncytial Virus (RSV) Vaccine Pt: or [...] complete this topic MENINGOCOCCAL (Group B) VACCINE SHARED DECISION-MAKING Aged Out No longer eligible based on patient's age to complete this topic MENINGOCOCCAL GROUPS A/C/Y/W VACCINE Aged Out No longer eligible based on patient's age to complete this topic Insurance MANAGED MEDICARE ADV [facility] MANAGED MEDICARE ADV Care Teams Hospice Care Consultant Relationship Specialty Start Date End Date Vanessa Patterson MD [address] [place], [place] [id number] PCP - General 08/31/21
--- OUTSIDE RECORDS SUMMARY | 2025-01-07 12:08 | XMS_ITS | Clinical Summary ---
Author Organization [facility] Address [address] [place] [address] Care Team Providers Care Associate Civil Engineer Name Role Phone Vanessa Patterson MD Primary Care Provider [phone] Allergies Active Allergy Reactions Criticality Noted Date Comments Iodinated Contrast Media Other (See Comments) High 03/26/2019 Causes frozen joints Medications levothyroxine 100 mcg tablet Take 100 mcg by mouth daily brusher. Active aspirin (ECOTRIN EC) 81 mg Tablet, [...] Comments Blood Pressure 140/80 10/10/2022 11:27 AM OTR DRIVER Pulse 74 07/11/2019 10:31 AM CDT Temperature 36.5 C (97.7 F) 06/28/2019 8:15 AM CDT Respiratory Rate 17 07/11/2019 10:31 AM CDT Oxygen Saturation 96% 06/28/2019 9:00 AM CDT Inhaled Oxygen Concentration - - Weight 66.2 kg (146 lb) 10/10/2022 11:27 AM OTR DRIVER Height 157.5 cm (5' 2 ) 10/10/2022 11:27 AM OTR DRIVER Body Mass Index 26.7 10/10/2022 11:27 AM OTR DRIVER Plan of Treatment Health Maintenance Due [...] series) 2032 Medical Devices Implanted Type Area Buckler And Lacer Device Identifier Shelf Expiration Date Model / Serial / Lot Sealant Duraseal 5ml [id number] Implanted:Qt y: 1 on 10/02/2018 by Alfie Guerin MD at [facility] Biological N/A: Back OmiroA [employer] JOI [id number] 04/17/2019 / / [id number] Concorde Proti P, [id number] Implanted:Qt y: 1 on 10/02/2018 by Alfie Guerin MD at [facility] Cage N/A: Back J&J- [employer] [id number] 12/13/2022 [id number] / / [id number] Description:All Depuy spine spinal hardware was processed on requisition,[id number]. Hemostatic Surgiflo 8ml W/Thrombin 2994 - [id number] Implanted:Qt y: 1 on 10/02/2018 by Alfie Guerin MD at [facility] Hemostatic N/A: Back J&J- [employer] [id number] 02/16/2020 2994 / / [id number] Yovani Xpdm Crv W/Line 55mm 1797-71-055 - [id number] Implanted:Qt y: 2 on 10/02/2018 by Alfie Guerin MD at [facility] Yovani N/A: Back J&J- [employer] [id number] / / LOAD 28, STERILIZED SEP 27, 2018 Setscrew Inner 1797-02-000 - [id number] Implanted:Qt y: 4 on 10/02/2018 by Alfie Guerin MD at [facility] Screw N/A: Back J&J- [employer] 179- / / LOAD 28, STERILIZED SEP 27, 2018 Screw Exp Poly 6x45mm [id number] - [id number] Implanted:Qt y: 2 on 10/02/2018 by Alfie Guerin MD at [facility] Screw N/A: Back J&J- [employer] 5 / / LOAD 28, STERILIZED SEP 27, 2018 Screw Exp Poly 7x40mm 1797-08-250 - [id number] Implanted:Qt y: 2 on 10/02/2018 by Alfie Guerin MD at [facility] Screw N/A: Back J&J- [employer] / / LOAD 28, STERILIZED SEP 27, 2018 Putty Dbx [facility] [address]266 - [id number] Implanted:Qt y: 1 on 10/02/2018 by Alfie Guerin MD at [facility] Tissue N/A: Back MUSCULOSKELETAL TRANSPLANT FOU [id number] 03/10/2020 [id number] / [id number] / Neck Hardware Explanted Type Area Buckler And Lacer Device Identifier Shelf Expiration Date Model / Serial / Lot Back Hardware Explanted:Qty: 1 on 10/02/2018 by Alfie Guerin MD at [facility] Description:1 plate and 4 sc rews explanted Insurance [facility] [id number] Advance Directives For more information, please contact: [phone] * Full Code (Latest Code Status on File) Date Activated Date Inactivated Comments 06/28/2019 6:14 AM 06/28/2019 11:18 AM * Full Code Date Activated Date Inactivated Comments 10/02/2018 10:58 AM 10/03/2018 12:42 PM Care Teams Associate Civil Engineer Relationship Specialty Start Date End Date Vanessa Patterson MD [address] [place] [address] PCP - General Family Practice 07/20/18
--- OUTSIDE RECORDS SUMMARY | 2025-01-07 12:08 | XMS_ITS | Referral Summary ---
Author Organization [facility] Physician Office Building [address] [place] [address] Care Team Providers Care Outpatient Program Coordinator Name Role Phone Vanessa Patterson MD Primary Care Provider [phone] Encounters Date Type Department Care Team Description 10/15/2024 6:36 AM WELLNESS GUIDE - 10/15/2024 11:59 PM WELLNESS GUIDE Hospital Encounter [facility] [address] [place] [address] Metabolic dysfunction-associated steatohepatitis (MASH) Discharge Disposition: Discharge to home or self care from Last 3 Months Allergies Active Allergy [...] by mouth twice daily 60 tablet 025 Active liothyronine (CYTOMEL) 5 mcg tabletIndications :Acquired hypothyroidism Take 1 tablet by mouth twice daily 60 tablet 025 2024 Discontinued Active Problems Problem Noted Date Diagnosed Date Metabolic dysfunction-associated steatohepatitis (MASH) 10/01/2024 Assessment & Plan (10/01/2024 1:59 PM WELLNESS GUIDE): Update liver enzymes and lipid Diet and exercise as cornerstone of the treatment was discussed Liver elastography requested Chronic fatigue 07/31/2017 Assessment & Plan (08/07/2019 10:15 AM WELLNESS GUIDE): Exercise recommended Tips to prevent more weight gain discussed Assessment & Plan (07/31/2017 10:07 AM WELLNESS GUIDE): Pt has sleep disturbance and chronic pain, Needs to follow up with PCP Hypothyroidism 08/21/2013 Overview (12/23/2016): HYPOTHYROIDISM NOS Assessment & Plan (10/01/2024 1:57 PM WELLNESS GUIDE): Chronic, uncontrolled Increase levothyroxine 100 mcg Continue Cytomel 5 mcg twice daily Assessment & Plan (03/18/2024 4:08 PM CDT): Chronic, stable Update TFTs Continue combination therapy with Cytomel and levothyroxine Assessment & Plan (08/14/2023 11:11 AM WELLNESS GUIDE): Thyroid function tests, including TSH and free [...] months. Assessment & Plan (08/08/2022 5:14 PM WELLNESS GUIDE): Thyroid function tests, including TSH and free T4 were requested Will adjust dose of Levothyroxine accordingly . If there is a need to make changes, will recheck levels in 2-3 months. Instructions to patient on taking medication properly : in the morning, on an empty stomach , 1 h part from food and/or other meds. Assessment & Plan (08/09/2021 12:02 PM WELLNESS GUIDE): Thyroid function tests, including TSH and free T4 were requested Will adjust dose of Levothyroxine accordingly . If there is a need to make changes, will recheck levels in 2-3 months. Instructions to patient on taking medication properly : in the morning, on an empty stomach , 1 h part from food and/or other meds. Assessment & Plan (08/10/2020 11:42 AM WELLNESS GUIDE): Thyroid function tests, including TSH and free T4 were requested Will adjust dose of Levothyroxine accordingly . If there is a need to make changes, will recheck levels in 2-3 months. Assessment & Plan (08/07/2019 10:12 AM WELLNESS GUIDE): Will check TSH and free T4 Will adjust dose of Levothyroxine accordingly . If there is a need to make changes, will recheck levels in 2-3 months. Instructions to patient on taking medication properly : in the morning, on an empty stomach , 1 h part from food and/or other meds. Assessment & Plan (08/06/2018 10:20 AM WELLNESS GUIDE): Will check TSH and free T4 Will [...] taken. Assessment & Plan (07/31/2017 9:56 AM WELLNESS GUIDE): Check TSH, free T4 Adjust dose of [...] on file Legal Sex Female 11:24 AM WELLNESS GUIDE Gender Identity Not on file Sexual Orientation Straight 09/30/2024 1: 19 PM WELLNESS GUIDE Last Filed Vital Signs Vital Sign Reading Time Taken Comments Blood Pressure 102/60 09/30/2024 1:25 PM WELLNESS GUIDE Pulse 80 09/30/2024 1:25 PM WELLNESS GUIDE Temperature - - Respiratory Rate 18 09/30/2024 1:25 PM WELLNESS GUIDE Oxygen Saturation - - Inhaled Oxygen Concentration - - Weight 74.1 kg (163 lb 6.4 oz) 09/30/2024 1:25 P M WELLNESS GUIDE Height 157.5 cm (5' 2 ) 09/30/2024 1:25 PM WELLNESS GUIDE Body Mass Index 29.89 09/30/2024 1:25 PM WELLNESS GUIDE Plan of Treatment Not on file Procedures Procedure Name Priority Date/Time Associated Diagnosis Comments US LIVER W ELASTOGRAPHY (C) Schedule Routine, Read Routine (OP Routine) 10/15/2024 7:51 AM WELLNESS GUIDE Metabolic dysfunction-associate d steatohepatitis (MASH) from Last 3 Months Results * US Liver W Elastography (C) (10/15/2024 7:51 AM WELLNESS GUIDE) Anatomical Region Laterality Modality Abdomen N/A Ultrasound 10/15/2024 8:06 AM WELLNESS GUIDE Impressions 10/15/2024 8:23 AM WELLNESS GUIDE 1. Mild hepatic steatosis. Otherwise normal sonographic [...] Chico Muniz M.D. Narrative 10/15/2024 8:23 AM WELLNESS GUIDE EXAMINATION: 1. LIMITED ABDOMINAL SONOGRAM 2. LIVER [...] Liver stiffness measurements were obtained on a Zen99 Logiq E9 Unit using a curved 1-6 MHz transducer following the Society of Radiologists in Ultrasound guidelines. 10 valid measurements were obtained using a (2D SWE method. The ruidzujrosvtc-fz-aowyaw ratio was was 6.2 %, suggesting a [...] Liver stiffness measurements were obtained on a Zen99 Logiq E9 Unit using a curved 1-6 MHz transducer following the Society of Radiologists in Ultrasound guidelines. 10 valid measurements were obtained using a (2D SWE method. The xlvggcivlmziy-dg-ychlyr ratio was was 6.2 %, suggesting a [...] Final Result from Last 3 Months Insurance IDPA [facility] MEDICARE ADVANTAGE [facility] MEDICARE ADVANTAGE IDPA Care Teams Outpatient Program Coordinator Relationship Specialty Start Date End Date Vanessa Patterson MD PCP - General 08/25/14
== END 2025-01-07 10:33 | disposition home or self-care (01) ==
PROVIDERS: PCP Family Medicine; Visit Provider Student in an Organized Health Care Education/Training Program
DX: R22.2 Localized swelling, mass and lump, trunk (principal)
CPT/HCPCS: 76604

== ENCOUNTER 2025-02-11 10:23 | Outpatient (CLI) | payer MEDICARE, SELFPAY ==
--- NOTE | 2025-02-11 10:30 | ECG_ITS ---
Test Date: 2025-02-11 10:52:31 Measurements Intervals [place] Rate: 74 P: 75 AL: 174 QRS: 3 QRSD: 86 T: 7 QT: 377 QTc: 418 Interpretive Statements SINUS RHYTHM LOW QRS VOLTAGE IN PRECORDIAL LEADS [QRS DEFLECTION < 1.0 mV IN CHEST LEADS] POSSIBLE ANTERIOR MYOCARDIAL INFARCTION [30 ms Q WAVE IN V3/V4, OR R < 0.2 mV IN V4], PROBABLY OLD No previous ECG available for comparison Electronically Signed On 02-11-2025 14:25:24 CDT by Nagi Cabral M.D.
--- OUTSIDE RECORDS SUMMARY | 2025-02-11 10:30 | XMS_ITS | Referral Summary ---
Author Organization [facility] Physician Office Building [address] [place] [address] Care Team Providers Care Binding Bench Worker Name Role Phone Vanessa Patterson MD Primary Care Provider [phone] Allergies Active Allergy Reactions Criticality Noted Date [...] tablet by mouth twice daily 60 tablet 3 025 Active liothyronine (CYTOMEL) 5 mcg tabletIndications :Acquired hypothyroidism Take 1 tablet by mouth twice daily 60 tablet 025 2024 Discontinued Active Problems Problem Noted Date Diagnosed Date Metabolic dysfunction-associated steatohepatitis (MASH) 10/01/2024 Assessment & Plan (10/01/2024 1:59 PM AUGER PRESS OPERATOR): Update liver enzymes and lipid Diet and exercise as cornerstone of the treatment was discussed Liver elastography requested Chronic fatigue 07/31/2017 Assessment & Plan (08/07/2019 10:15 AM AUGER PRESS OPERATOR): Exercise recommended Tips to prevent more weight gain discussed Assessment & Plan (07/31/2017 10:07 AM AUGER PRESS OPERATOR): Pt has sleep disturbance and chronic pain, Needs to follow up with PCP Hypothyroidism 08/21/2013 Overview (12/23/2016): HYPOTHYROIDISM NOS Assessment & Plan (10/01/2024 1:57 PM AUGER PRESS OPERATOR): Chronic, uncontrolled Increase levothyroxine 100 mcg Continue Cytomel 5 mcg twice daily Assessment & Plan (03/18/2024 4:08 PM CDT): Chronic, stable Update TFTs Continue combination therapy with Cytomel and levothyroxine Assessment & Plan (08/14/2023 11:11 AM AUGER PRESS OPERATOR): Thyroid function tests, including TSH and [...] months. Assessment & Plan (08/08/2022 5:14 PM AUGER PRESS OPERATOR): Thyroid function tests, including TSH and free T4 were requested Will adjust dose of Levothyroxine accordingly . If there is a need to make changes, will recheck levels in 2-3 months. Instructions to patient on taking medication properly : in the morning, on an empty stomach , 1 h part from food and/or other meds. Assessment & Plan (08/09/2021 12:02 PM AUGER PRESS OPERATOR): Thyroid function tests, including TSH and free T4 were requested Will adjust dose of Levothyroxine accordingly . If there is a need to make changes, will recheck levels in 2-3 months. Instructions to patient on taking medication properly : in the morning, on an empty stomach , 1 h part from food and/or other meds. Assessment & Plan (08/10/2020 11:42 AM AUGER PRESS OPERATOR): Thyroid function tests, including TSH and free T4 were requested Will adjust dose of Levothyroxine accordingly . If there is a need to make changes, will recheck levels in 2-3 months. Assessment & Plan (08/07/2019 10:12 AM AUGER PRESS OPERATOR): Will check TSH and free T4 Will adjust dose of Levothyroxine accordingly . If there is a need to make changes, will recheck levels in 2-3 months. Instructions to patient on taking medication properly : in the morning, on an empty stomach , 1 h part from food and/or other meds. Assessment & Plan (08/06/2018 10:20 AM AUGER PRESS OPERATOR): Will check TSH and free T4 [...] taken. Assessment & Plan (07/31/2017 9:56 AM AUGER PRESS OPERATOR): Check TSH, free T4 Adjust dose [...] on file Legal Sex Female 11:24 AM AUGER PRESS OPERATOR Gender Identity Not on file Sexual Orientation Straight 09/30/2024 1: 19 PM AUGER PRESS OPERATOR Last Filed Vital Signs Vital Sign Reading Time Taken Comments Blood Pressure 102/60 09/30/2024 1:25 PM AUGER PRESS OPERATOR Pulse 80 09/30/2024 1:25 PM AUGER PRESS OPERATOR Temperature - - Respiratory Rate 18 09/30/2024 1:25 PM AUGER PRESS OPERATOR Oxygen Saturation - - Inhaled Oxygen Concentration - - Weight 74.1 kg (163 lb 6.4 oz) 09/30/2024 1:25 P M AUGER PRESS OPERATOR Height 157.5 cm (5' 2 ) 09/30/2024 1:25 PM AUGER PRESS OPERATOR Body Mass Index 29.89 09/30/2024 1:25 PM AUGER PRESS OPERATOR Plan of Treatment Not on file Insurance IDPA [facility] MEDICARE ADVANTAGE [facility] MEDICARE ADVANTAGE [employer] Care Teams Binding Bench Worker Relationship Specialty Start Date End Date Vanessa Patterson MD PCP - General 08/25/14
--- OUTSIDE RECORDS SUMMARY | 2025-02-11 10:30 | XMS_ITS | Clinical Summary ---
Author Organization [facility] Physician Office Building [address] [place] [address] Care Team Providers Care Gypsum Calciner Name Role Phone Vanessa Patterson MD Primary Care Provider [phone] Allergies Active Allergy Reactions Criticality Noted Date [...] 10/01/2024 Assessment & Plan (10/01/2024 1:59 PM EXTRACT MIXER): Update liver enzymes and lipid Diet and exercise as cornerstone of the treatment was discussed Liver elastography requested Chronic fatigue 07/31/2017 Assessment & Plan (08/07/2019 10:15 AM EXTRACT MIXER): Exercise recommended Tips to prevent more weight gain discussed Assessment & Plan (07/31/2017 10:07 AM EXTRACT MIXER): Pt has sleep disturbance and chronic pain, Needs to follow up with PCP Hypothyroidism 08/21/2013 Overview (12/23/2016): HYPOTHYROIDISM NOS Assessment & Plan (10/01/2024 1:57 PM EXTRACT MIXER): Chronic, uncontrolled Increase levothyroxine 100 mcg Continue Cytomel 5 mcg twice daily Assessment & Plan (03/18/2024 4:08 PM CDT): Chronic, stable Update TFTs Continue combination therapy with Cytomel and levothyroxine Assessment & Plan (08/14/2023 11:11 AM EXTRACT MIXER): Thyroid function tests, including TSH and free [...] months. Assessment & Plan (08/08/2022 5:14 PM EXTRACT MIXER): Thyroid function tests, including TSH and free T4 were requested Will adjust dose of Levothyroxine accordingly . If there is a need to make changes, will recheck levels in 2-3 months. Instructions to patient on taking medication properly : in the morning, on an empty stomach , 1 h part from food and/or other meds. Assessment & Plan (08/09/2021 12:02 PM EXTRACT MIXER): Thyroid function tests, including TSH and free T4 were requested Will adjust dose of Levothyroxine accordingly . If there is a need to make changes, will recheck levels in 2-3 months. Instructions to patient on taking medication properly : in the morning, on an empty stomach , 1 h part from food and/or other meds. Assessment & Plan (08/10/2020 11:42 AM EXTRACT MIXER): Thyroid function tests, including TSH and free T4 were requested Will adjust dose of Levothyroxine accordingly . If there is a need to make changes, will recheck levels in 2-3 months. Assessment & Plan (08/07/2019 10:12 AM EXTRACT MIXER): Will check TSH and free T4 Will adjust dose of Levothyroxine accordingly . If there is a need to make changes, will recheck levels in 2-3 months. Instructions to patient on taking medication properly : in the morning, on an empty stomach , 1 h part from food and/or other meds. Assessment & Plan (08/06/2018 10:20 AM EXTRACT MIXER): Will check TSH and free T4 Will [...] taken. Assessment & Plan (07/31/2017 9:56 AM EXTRACT MIXER): Check TSH, free T4 Adjust dose of Levothyroxine accordingly . Instructions to patient on taking medication properly Resolved Problems Problem Noted Date Diagnosed Date Resolved Date Nicotine dependence 11/26/2012 08/07/20 19 Overview (12/21/2016): Nicotine addiction Surgical History Surgery Date Site/Laterality Comments TONSILLECTOMY [...] on file Legal Sex Female 11:24 AM EXTRACT MIXER Gender Identity Not on file Sexual Orientation Straight 09/30/2024 1: 19 PM EXTRACT MIXER Obstetrics History Last Filed Vital Signs Vital Sign Reading Time Taken Comments Blood Pressure 102/60 09/30/2024 1:25 PM EXTRACT MIXER Pulse 80 09/30/2024 1:25 PM EXTRACT MIXER Temperature - - Respiratory Rate 18 09/30/2024 1:25 PM EXTRACT MIXER Oxygen Saturation - - Inhaled Oxygen Concentration - - Weight 74.1 kg (163 lb 6.4 oz) 09/30/2024 1:25 P M EXTRACT MIXER Height 157.5 cm (5' 2 ) 09/30/2024 1:25 PM EXTRACT MIXER Body Mass Index 29.89 09/30/2024 1:25 PM EXTRACT MIXER Plan of Treatment Health Maintenance Due Date [...] Fall Risk Assessment 09/30/2025 09/30/2024, 03/18/2024, 08/14/2023 Insurance [facility] UHC MEDICARE ADVANTAGE [facility] MEDICARE ADVANTAGE IDPA Care Teams Gypsum Calciner Relationship Specialty Start Date End Date Vanessa Patterson MD PCP - General 08/25/14
--- OUTSIDE RECORDS SUMMARY | 2025-02-11 10:30 | XMS_ITS | Clinical Summary ---
Author Organization [facility] Address [address] [place] [address] Care Team Providers Care Flexible Babysitter Name Role Phone Vanessa Patterson MD Primary Care Provider [phone] Source Comments [facility],non-owned Affiliates and Associated Physician Practices is amultiple site organization consisting of ambulatory clinics and hospital sitesin [place], [place], [place] and [place]. This disclosure is being madepursuant to the Care Everywhere program and may not contain all information available regarding this patient. Last updated 18.[facility] Allergies Active Allergy Reactions Criticality Noted Date [...] on file Legal Sex Female 6:56 AM INFORMATION OPERATOR Gender Identity Not on file Sexual Orientation Not on file Last Filed Vital Signs Vital Sign Reading Time Taken Comments Blood Pressure 128/68 09/25/2024 10:32 AM INFORMATION OPERATOR Pulse - - Temperature 36.2 C (97.2 F) 10/03/2023 10:18 AM INFORMATION OPERATOR Respiratory Rate - - Oxygen Saturation - - Inhaled Oxygen Concentration - - Weight 71.8 kg (158 lb 3.2 oz) 09/25/2024 10:32 AM INFORMATION OPERATOR Height 157.5 cm (5' 2 ) 09/25/2024 10:32 AM INFORMATION OPERATOR Body Mass Index 28.94 09/25/2024 10:32 AM INFORMATION OPERATOR Plan of Treatment Upcoming Encounters Date Type Department Care Team (Late st Contact Info) Description 04/22/2025 9:50 AM CDT Office Visit [facility] - RESIDENTIAL MANAGER [address], [facility] [address] [place] [address] Crystal Montelongo MD [address] [facility] [address] [place] [address] Health Maintenance Due Date Last [...] complete this topic Insurance MANAGED MEDICARE ADV [facility] MANAGED MEDICARE ADV Care Teams Flexible Babysitter Relationship Specialty Start Date End Date Vanessa Patterson MD [address] [place], [place] [id number] PCP - General 08/31/21
--- OUTSIDE RECORDS SUMMARY | 2025-02-11 10:30 | XMS_ITS | Clinical Summary ---
Author Organization [facility] Address [address] [place] [address] Care Team Providers Care Cuff Stitcher Name Role Phone Vanessa Patterson MD Primary Care Provider [phone] Allergies Active Allergy Reactions Criticality Noted Date Comments Iodinated Contrast Media Other (See Comments) High 03/26/2019 Causes frozen joints Medications levothyroxine 100 mcg tablet Take 100 mcg by mouth daily hazardous waste management specialist. Active aspirin (ECOTRIN EC) 81 mg Tablet, [...] Comments Blood Pressure 140/80 10/10/2022 11:27 AM DINKING MACHINE OPERATOR Pulse 74 07/11/2019 10:31 AM CDT Temperature 36.5 C (97.7 F) 06/28/2019 8:15 AM CDT Respiratory Rate 17 07/11/2019 10:31 AM CDT Oxygen Saturation 96% 06/28/2019 9:00 AM CDT Inhaled Oxygen Concentration - - Weight 66.2 kg (146 lb) 10/10/2022 11:27 AM DINKING MACHINE OPERATOR Height 157.5 cm (5' 2 ) 10/10/2022 11:27 AM DINKING MACHINE OPERATOR Body Mass Index 26.7 10/10/2022 11:27 AM DINKING MACHINE OPERATOR Plan of Treatment Health Maintenance [...] series) 2032 Medical Devices Implanted Type Area Staff Home Therapy Rn Device Identifier Shelf Expiration Date Model / Serial / Lot Sealant Duraseal 5ml [id number] Implanted:Qt y: 1 on 10/02/2018 by Alfie Guerin MD at [facility] Biological N/A: Back HomeConA IntercastingCIENCE HOLD JOI [id number] 04/17/2019 / / [id number] Concorde Proti P, [id number] Implanted:Qt y: 1 on 10/02/2018 by Alfie Guerin MD at [facility] Cage N/A: Back J&J- [employer] [id number] 12/13/2022 [id number] / / [id number] Description:All Depuy spine spinal hardware was processed on requisition,[id number]. Hemostatic Surgiflo 8ml W/Thrombin 2994 - [id number] Implanted:Qt y: 1 on 10/02/2018 by Alfie Guerin MD at [facility] Hemostatic N/A: Back J&J- ETHICON INC [id number] 02/16/2020 2994 / / [id number] Yovani Xpdm Crv W/Line 55mm 1797-71-055 - [id number] Implanted:Qt y: 2 on 10/02/2018 by Alfie Guerin MD at [facility] Yovani N/A: Back J&J- [employer] [id number] / / LOAD 28, STERILIZED SEP 27, 2018 Setscrew Inner 1797-02-000 - [id number] Implanted:Qt y: 4 on 10/02/2018 by Alfie Guerin MD at [facility] Screw N/A: Back J&J- [employer] 179- / / LOAD 28, STERILIZED SEP 27, 2018 Screw Exp Poly 6x45mm [id number] - [id number] Implanted:Qt y: 2 on 10/02/2018 by Alfie Guerin MD at [facility] Screw N/A: Back J&J- [employer] 5 / / LOAD 28, STERILIZED SEP 27, 2018 Screw Exp Poly 7x40mm 1797-08-040 - [id number] Implanted:Qt y: 2 on 10/02/2018 by Alfie Guerin MD at [facility] Screw N/A: Back J&J- [employer] / / LOAD 28, STERILIZED SEP 27, 2018 Putty Dbx D[facility] [address]12 - [id number] Implanted:Qt y: 1 on 10/02/2018 by Alfie Guerin MD at [facility] Tissue N/A: Back MUSCULOSKELETAL TRANSPLANT FOU [id number] 03/10/2020 [id number] / [id number] / Neck Hardware Explanted Type Area Staff Home Therapy Rn Device Identifier Shelf Expiration Date Model / Serial / Lot Back Hardware Explanted:Qty: 1 on 10/02/2018 by Alfie Guerin MD at [facility] Description:1 plate and 4 sc rews explanted Insurance [facility] [id number] Advance Directives For more information, please contact: [phone] * Full Code (Latest Code Status on File) Date Activated Date Inactivated Comments 06/28/2019 6:14 AM 06/28/2019 11:18 AM * Full Code Date Activated Date Inactivated Comments 10/02/2018 10:58 AM 10/03/2018 12:42 PM Care Teams Cuff Stitcher Relationship Specialty Start Date End Date Vanessa Patterson MD [address] [place] [address] PCP - General Family Practice 07/20/18
== END 2025-02-11 10:24 | disposition home or self-care (01) ==
LOC: ANHSURGERY 10:27
PROVIDERS: PCP Family Medicine; Visit Provider Surgery
DX: E78.2 Mixed hyperlipidemia (principal)
CPT/HCPCS: 93005

== ENCOUNTER 2025-02-13 03:23 | Day surgery (SDC) | payer MEDICARE, SELFPAY ==
[2025-02-07 11:20] VITALS: BMI 28.9
--- NOTE | 2025-02-07 11:50 | PC.NURSE ---
Report to the Outpatient Waiting Room, entrance under the green pavilion located off [facility], at time ___9:30AM____ on date ___02/13/25____. Planned Procedure Time: __11:30AM .? Time changes happen often and if your time is changed the preop area will call you the afternoon before. - You and your visitor will be asked to self-screen and do not enter if you have any COVID symptoms. Please call surgeon if you need to reschedule. - A mask is optional within the hospital at this time. Patients may have clear liquids (water, carbonated beverages, clear teas, apple juice) until 3 hours prior to surgery (8:30AM) with a maximum of 20 ounces. - No food from midnight until time of surgery and no smoking, or chewing tobacco (or any form of nicotine). No chewing gum, candy or mints. Take only the following medications with a SIP of water on the morning of surgery: ____LIOTHYRONINE, LEVOTHYROXINE, AUGMENTIN DO NOT STOP ANY OF YOUR OTHER PRESCRIPTION MEDICATIONS PRIOR TO SURGERY EXCEPT THE FOLLOWING Hold all vitamins and supplements for 3 days per anesthesiologist.- LAST DOSE 02/09/25 Please no make-up, nail faroese, hairspray, perfume, deodorant, or body powder the day of surgery.? No jewelry (including any body piercings) or valuables the day of surgery, leave them at home.? Please take a shower or bath the night before, or the morning of, surgery with an antibacterial soap.? Wear comfortable, loose fitting clothing.? - Jewelry must be removed prior to entering the operating room.? Rings and piercings that are not removed may be cut off. - The hospital will not accept responsibility for valuables.? - Please leave all valuables, including medications, at home the day of surgery. If you are going home after surgery, a licensed package delivery driver must drive you home.? - NO public transportation without another adult if you receive anesthesia. - We recommend that an adult stay with you for 24 hours following discharge. - We also recommend that you do not drive, make important decision, drink alcoholic beverages, or take any drugs that were not prescribed by your health care provider for at least 24 hours after your discharge time. Follow any additional instructions given to you from your surgeon. Telephone instructions given to ____PATIENT and asked if any additional questions and then verbalized understanding. Patient advised to call surgeon office or pre surgery nurse liaison [phone] if any additional questions.
--- OUTSIDE RECORDS SUMMARY | 2025-02-13 03:25 | XMS_ITS | Clinical Summary ---
Author Organization [facility] [employer] Address [address] [place] [address] Care Team Providers Care Bottled Beverage Inspector Name Role Phone Vanessa Patterson MD Primary Care Provider [phone] Source Comments [facility] [employer],non-owned Affiliates and Associated Physician Practices is amultiple site organization consisting of ambulatory clinics and hospital sitesin [place], [place], [place] and [place]. This disclosure is being madepursuant to the Care Everywhere program and may not contain all information available regarding this patient. Last updated 18.[facility] [employer] Allergies Active Allergy Reactions Criticality Noted Date [...] on file Legal Sex Female 6:56 AM TOBACCO DIPPER Gender Identity Not on file Sexual Orientation Not on file Last Filed Vital Signs Vital Sign Reading Time Taken Comments Blood Pressure 128/68 09/25/2024 10:32 AM TOBACCO DIPPER Pulse - - Temperature 36.2 C (97.2 F) 10/03/2023 10:18 AM TOBACCO DIPPER Respiratory Rate - - Oxygen Saturation - - Inhaled Oxygen Concentration - - Weight 71.8 kg (158 lb 3.2 oz) 09/25/2024 10:32 AM TOBACCO DIPPER Height 157.5 cm (5' 2) 09/25/2024 10:32 AM TOBACCO DIPPER Body Mass Index 28.94 09/25/2024 10:32 AM TOBACCO DIPPER Plan of Treatment Upcoming Encounters Date Type Department Care Team (Late st Contact Info) Description 04/22/2025 9:50 AM CDT Office Visit [facility] - CHARGE LOADER [address], [facility] [address] [place] [address] Crystal Montelongo MD [address] [facility] [address] [place] [address] Health Maintenance Due Date Last [...] complete this topic Insurance MANAGED MEDICARE ADV [facility] MANAGED MEDICARE ADV Care Teams Bottled Beverage Inspector Relationship Specialty Start Date End Date Vanessa Patterson MD [address] [place], [place] [phone] PCP - General 08/31/21
--- OUTSIDE RECORDS SUMMARY | 2025-02-13 03:25 | XMS_ITS | Clinical Summary ---
Author Organization [facility] Physician Office Building [address] [place] [address] Care Team Providers Care Electrolytic Etcher Name Role Phone Vanessa Patterson MD Primary Care Provider [phone] Allergies Active Allergy Reactions Criticality Noted Date [...] 10/01/2024 Assessment & Plan (10/01/2024 1:59 PM MONUMENT MASON): Update liver enzymes and lipid Diet and exercise as cornerstone of the treatment was discussed Liver elastography requested Chronic fatigue 07/31/2017 Assessment & Plan (08/07/2019 10:15 AM MONUMENT MASON): Exercise recommended Tips to prevent more weight gain discussed Assessment & Plan (07/31/2017 10:07 AM MONUMENT MASON): Pt has sleep disturbance and chronic pain, Needs to follow up with PCP Hypothyroidism 08/21/2013 Overview (12/23/2016): HYPOTHYROIDISM NOS Assessment & Plan (10/01/2024 1:57 PM MONUMENT MASON): Chronic, uncontrolled Increase levothyroxine 100 mcg Continue Cytomel 5 mcg twice daily Assessment & Plan (03/18/2024 4:08 PM CDT): Chronic, stable Update TFTs Continue combination therapy with Cytomel and levothyroxine Assessment & Plan (08/14/2023 11:11 AM MONUMENT MASON): Thyroid function tests, including TSH and free [...] months. Assessment & Plan (08/08/2022 5:14 PM MONUMENT MASON): Thyroid function tests, including TSH and free T4 were requested Will adjust dose of Levothyroxine accordingly . If there is a need to make changes, will recheck levels in 2-3 months. Instructions to patient on taking medication properly : in the morning, on an empty stomach , 1 h part from food and/or other meds. Assessment & Plan (08/09/2021 12:02 PM MONUMENT MASON): Thyroid function tests, including TSH and free T4 were requested Will adjust dose of Levothyroxine accordingly . If there is a need to make changes, will recheck levels in 2-3 months. Instructions to patient on taking medication properly : in the morning, on an empty stomach , 1 h part from food and/or other meds. Assessment & Plan (08/10/2020 11:42 AM MONUMENT MASON): Thyroid function tests, including TSH and free T4 were requested Will adjust dose of Levothyroxine accordingly . If there is a need to make changes, will recheck levels in 2-3 months. Assessment & Plan (08/07/2019 10:12 AM MONUMENT MASON): Will check TSH and free T4 Will adjust dose of Levothyroxine accordingly . If there is a need to make changes, will recheck levels in 2-3 months. Instructions to patient on taking medication properly : in the morning, on an empty stomach , 1 h part from food and/or other meds. Assessment & Plan (08/06/2018 10:20 AM MONUMENT MASON): Will check TSH and free T4 Will [...] taken. Assessment & Plan (07/31/2017 9:56 AM MONUMENT MASON): Check TSH, free T4 Adjust dose of [...] on file Legal Sex Female 11:24 AM MONUMENT MASON Gender Identity Not on file Sexual Orientation Straight 09/30/2024 1: 19 PM MONUMENT MASON Obstetrics History Last Filed Vital Signs Vital Sign Reading Time Taken Comments Blood Pressure 102/60 09/30/2024 1:25 PM MONUMENT MASON Pulse 80 09/30/2024 1:25 PM MONUMENT MASON Temperature - - Respiratory Rate 18 09/30/2024 1:25 PM MONUMENT MASON Oxygen Saturation - - Inhaled Oxygen Concentration - - Weight 74.1 kg (163 lb 6.4 oz) 09/30/2024 1:25 P M MONUMENT MASON Height 157.5 cm (5' 2) 09/30/2024 1:25 PM MONUMENT MASON Body Mass Index 29.89 09/30/2024 1:25 PM MONUMENT MASON Plan of Treatment Health Maintenance Due Date [...] Risk Assessment 09/30/2025 09/30/2024, 03/18/2024, 08/14/2023 Insurance [facility] UHC MEDICARE ADVANTAGE [facility] MEDICARE ADVANTAGE [facility] Address: [facility] [address] [place] [address] IDPA Care Teams Electrolytic Etcher Relationship Specialty Start Date End Date Vanessa Patterson MD PCP - General 08/25/14
--- OUTSIDE RECORDS SUMMARY | 2025-02-13 03:25 | XMS_ITS | Referral Summary ---
Author Organization [facility] Physician Office Building [address] [place] [address] Care Team Providers Care Shooter Helper Name Role Phone Vanessa Patterson MD Primary Care Provider [phone] Allergies Active Allergy Reactions Criticality Noted Date [...] 10/01/2024 Assessment & Plan (10/01/2024 1:59 PM SENIOR SOFTWARE ARCHITECT): Update liver enzymes and lipid Diet and exercise as cornerstone of the treatment was discussed Liver elastography requested Chronic fatigue 07/31/2017 Assessment & Plan (08/07/2019 10:15 AM SENIOR SOFTWARE ARCHITECT): Exercise recommended Tips to prevent more weight gain discussed Assessment & Plan (07/31/2017 10:07 AM SENIOR SOFTWARE ARCHITECT): Pt has sleep disturbance and chronic pain, Needs to follow up with PCP Hypothyroidism 08/21/2013 Overview (12/23/2016): HYPOTHYROIDISM NOS Assessment & Plan (10/01/2024 1:57 PM SENIOR SOFTWARE ARCHITECT): Chronic, uncontrolled Increase levothyroxine 100 mcg Continue Cytomel 5 mcg twice daily Assessment & Plan (03/18/2024 4:08 PM CDT): Chronic, stable Update TFTs Continue combination therapy with Cytomel and levothyroxine Assessment & Plan (08/14/2023 11:11 AM SENIOR SOFTWARE ARCHITECT): Thyroid function tests, including TSH and free [...] months. Assessment & Plan (08/08/2022 5:14 PM SENIOR SOFTWARE ARCHITECT): Thyroid function tests, including TSH and free T4 were requested Will adjust dose of Levothyroxine accordingly . If there is a need to make changes, will recheck levels in 2-3 months. Instructions to patient on taking medication properly : in the morning, on an empty stomach , 1 h part from food and/or other meds. Assessment & Plan (08/09/2021 12:02 PM SENIOR SOFTWARE ARCHITECT): Thyroid function tests, including TSH and free T4 were requested Will adjust dose of Levothyroxine accordingly . If there is a need to make changes, will recheck levels in 2-3 months. Instructions to patient on taking medication properly : in the morning, on an empty stomach , 1 h part from food and/or other meds. Assessment & Plan (08/10/2020 11:42 AM SENIOR SOFTWARE ARCHITECT): Thyroid function tests, including TSH and free T4 were requested Will adjust dose of Levothyroxine accordingly . If there is a need to make changes, will recheck levels in 2-3 months. Assessment & Plan (08/07/2019 10:12 AM SENIOR SOFTWARE ARCHITECT): Will check TSH and free T4 Will adjust dose of Levothyroxine accordingly . If there is a need to make changes, will recheck levels in 2-3 months. Instructions to patient on taking medication properly : in the morning, on an empty stomach , 1 h part from food and/or other meds. Assessment & Plan (08/06/2018 10:20 AM SENIOR SOFTWARE ARCHITECT): Will check TSH and free T4 Will [...] taken. Assessment & Plan (07/31/2017 9:56 AM SENIOR SOFTWARE ARCHITECT): Check TSH, free T4 Adjust dose of [...] on file Legal Sex Female 11:24 AM SENIOR SOFTWARE ARCHITECT Gender Identity Not on file Sexual Orientation Straight 09/30/2024 1: 19 PM SENIOR SOFTWARE ARCHITECT Last Filed Vital Signs Vital Sign Reading Time Taken Comments Blood Pressure 102/60 09/30/2024 1:25 PM SENIOR SOFTWARE ARCHITECT Pulse 80 09/30/2024 1:25 PM SENIOR SOFTWARE ARCHITECT Temperature - - Respiratory Rate 18 09/30/2024 1:25 PM SENIOR SOFTWARE ARCHITECT Oxygen Saturation - - Inhaled Oxygen Concentration - - Weight 74.1 kg (163 lb 6.4 oz) 09/30/2024 1:25 P M SENIOR SOFTWARE ARCHITECT Height 157.5 cm (5' 2) 09/30/2024 1:25 PM SENIOR SOFTWARE ARCHITECT Body Mass Index 29.89 09/30/2024 1:25 PM SENIOR SOFTWARE ARCHITECT Plan of Treatment Not on file Insurance IDPA [facility] [place] [address] [facility] MEDICARE ADVANTAGE IDPA Care Teams Shooter Helper Relationship Specialty Start Date End Date Vanessa Patterson MD PCP - General 08/25/14
--- OUTSIDE RECORDS SUMMARY | 2025-02-13 03:25 | XMS_ITS | Clinical Summary ---
Author Organization [facility] Administrative Offices Address [address] [place] [address] Care Team Providers Care Cooling Tower Technician Name Role Phone Vanessa Patterson MD Primary Care Provider [phone] Allergies Active Allergy Reactions Criticality Noted Date Comments Iodinated Contrast Media Other (See Comments) High 03/26/2019 Causes frozen joints Medications levothyroxine 100 mcg tablet Take 100 mcg by mouth daily artist consultant. Active aspirin (ECOTRIN EC) 81 mg Tablet, [...] Blood Pressure 140/80 10/10/2022 11:27 AM COMMUNICATIONS OPERATOR Pulse 74 07/11/2019 10:31 AM CDT Temperature 36.5 C (97.7 F) 06/28/2019 8:15 AM CDT Respiratory Rate 17 07/11/2019 10:31 AM CDT Oxygen Saturation 96% 06/28/2019 9:00 AM CDT Inhaled Oxygen Concentration - - Weight 66.2 kg (146 lb) 10/10/2022 11:27 AM COMMUNICATIONS OPERATOR Height 157.5 cm (5' 2) 10/10/2022 11:27 AM COMMUNICATIONS OPERATOR Body Mass Index 26.7 10/10/2022 11:27 AM COMMUNICATIONS OPERATOR Plan of Treatment Health Maintenance Due [...] series) 2032 Medical Devices Implanted Type Area Purse Seining Hand Device Identifier Shelf Expiration Date Model / Serial / Lot Sealant Duraseal 5ml [id number] Implanted:Qt y: 1 on 10/02/2018 by Alfie Guerin MD at [facility] Biological N/A: Back RetrophinA Network MerchantsCIENCE HOLD JOI [id number] 04/17/2019 / / [id number] Concorde Proti P, [id number] Implanted:Qt y: 1 on 10/02/2018 by Alfie Guerin MD at [facility] Cage N/A: Back J&J- DEPUY SPINE INC [id number] 12/13/2022 [id number] / / [id number] Description:All Depuy spine spinal hardware was processed on requisition,7521058. Hemostatic Surgiflo 8ml W/Thrombin 2994 - [id number] Implanted:Qt y: 1 on 10/02/2018 by Alfie Guerin MD at [facility] Hemostatic N/A: Back J&J- ETHICON INC [id number] 02/16/2020 2994 / / [id number] Yovani Xpdm Crv W/Line 55mm 1797-71-055 - [id number] Implanted:Qt y: 2 on 10/02/2018 by Alfie Guerin MD at [facility] Yovani N/A: Back J&J- DEPUY SPINE INC [id number] / / LOAD 28, STERILIZED SEP 27, 2018 Setscrew Inner 1797-02-000 - [id number] Implanted:Qt y: 4 on 10/02/2018 by Alfie Guerin MD at [facility] Screw N/A: Back J&J- [employer]PU[employer] INC 179- / / LOAD 28, STERILIZED SEP 27, 2018 Screw Exp Poly 6x45mm [id number] - [id number] Implanted:Qt y: 2 on 10/02/2018 by Alfie Guerin MD at [facility] Screw N/A: Back J&J- [employer] 5 / / LOAD 28, STERILIZED SEP 27, 2018 Screw Exp Poly 7x40mm 1797-08-220 - [id number] Implanted:Qt y: 2 on 10/02/2018 by Alfie Guerin MD at [facility] Screw N/A: Back J&J- DEPUY SPINE [employer] / / LOAD 28, STERILIZED SEP 27, 2018 Putty Dbx Dbm [facility] [address]777 - [id number] Implanted:Qt y: 1 on 10/02/2018 by Alfie Guerin MD at [facility] Tissue N/A: Back MUSCULOSKELETAL TRANSPLANT FOU [id number] 03/10/2020 [id number] / [id number] / Neck Hardware Explanted Type Area Purse Seining Hand Device Identifier Shelf Expiration Date Model / Serial / Lot Back Hardware Explanted:Qty: 1 on 10/02/2018 by Alfie Guerin MD at [facility] Description:1 plate and 4 sc rews explanted Insurance [facility] [id number] Advance Directives For more information, please contact: [phone] * Full Code (Latest Code Status on File) Date Activated Date Inactivated Comments 06/28/2019 6:14 AM 06/28/2019 11:18 AM * Full Code Date Activated Date Inactivated Comments 10/02/2018 10:58 AM 10/03/2018 12:42 PM Care Teams Cooling Tower Technician Relationship Specialty Start Date End Date Vanessa Patterson MD [address] [place] [address] PCP - General Family Practice 07/20/18
--- OUTSIDE RECORDS SUMMARY | 2025-02-13 03:25 | XMS_ITS | Data Portability ---
Author Organization [facility] [place] Address [address] [place] [address] Care Team Providers Care Fingerprint Classifier Name Role Phone KAYLANRORY Primary Care Provider [...] this patient s visit, including available hand retail pos specialist upon arrive, temperature check and being asked [...] further information , please contact me at [phone]. Thank you, SRI Mendez 2020 021 [email or web address] Crystal Haskins MD - [facility], [address], [place] [address], [place], [address], 02/15/202 2 13:56:49 Procedures None recorded. Surgeries None recorded. Imaging None recorded. Medication Orders Estrace 0.01% (0.1 mg/gram) vaginal cream 2020 [facility], [address] [place], [address], 14:12:36 nystatin-tr iamcinolone 100,000 unit/gram-0 .1 % topical ointment 2020 [facility], [address] [place] [address], [address], 14:12:33 nystatin-tr iamcinolone 100,000 unit/gram-0 .1 % topical ointment 2019 [facility] [address], [address] [place] [address], [address], 1 13:42:55 Estrace 0.01% (0.1 mg/gram) vaginal cream [address], [address] [place] [address], [address], 1 13:40:43 nystatin-tr iamcinolone 100,000 unit/gram-0 .1 % topical ointment [address], [address] [place] [address], [address], 13:41:09 Patient TargetsNo targets recorded. Patient InstructionsNo instructions recorded. Reason for Referral Sap Bpc Developer Referral for Ge nital lichen sclerosus Lichen Sclerosis Please reach out to patient to schedule her for an appt, she is expecting the call. Please find attached her demographics and office visit notes. If you have any questions or require further information, please contact me at [phone]. Thank you, SRI Mendez Referring Physician: Iman Pond, EXPRESS CLERK, Encounter Date: 08/30/2021 Results Created Date Observation [...] labor atory findi ngs. See https ://ww wAskforTask/s ites/ defau lt/fi les/2 018-0 3/AW- 69853 _002_ 01.pd f for [facility] er infor luis carlos n. Test perfo rmed by [employer] d/b/a [facility], [address], [place] [address] , Faustino Jackson ra, , Labor atory [...] e detec tion of E6/E7 viral mRNA. [facility] shoul d be corre lated with patie nt prese ntati on, histo ry, cervi stephen cytol ogy and other clini stephen and labor atory findi ngs. See https ://Histogen/s ites/ defau lt/fi les/2 018-0 3- 80214 _002_ 01.pd f for psychiatric hospital er infor luis carlos n. Test perfo rmed by [employer] d/b/a [facility], [address], [place] [address] , Faustino Jackson ra, , Labor atory Dire tor. End of Repor t Techn ical servi celso provi ded by [employer] d/b/a [facility], [address] [place] [address] Jason Alvarez MD, Labor atory Dire tor. Case revie wed and diagn osis rende red at [employer] d/b/a [facility], [address] [place] [address] Jason Alvarez MD, Labor atory Dire tor. CONFI DENTI AL Not Available [facility] ([facility]) [address], [place], [address], 04/29/2020 19:22:22 04/27/20 20 04/29/2020 bacte rial [...] rmed by Assoc iated Patho logis ts, [facility], d/b/a Path kyle, [address], [place] [address] , Faustino Jackson ra, DO, Labor atory [...] chelsey resul ts of [place] or [place] are deter mined by calcu latin [...] e libby cteri stics deter mined by [employer], [employer] d/b/a [employer] Orange. It has not been clear ed or appro kwaku by the U.S. Food and Drug Admin istra tion. The FDA has deter mined that such clear ance or appro gemini is not neces dilma. Perti nent refer ence inter vals are avail able from the Vanu Coverage on reque st. Test( s) perfo rmed by Assoc iatCopilot Labso [employer], [employer], d/b/a [employer] Orange, [address], [place] [address] , Faustino Jackson ra, DO, Labor atory Dire tor. Not Available [facility] ([facility]) [address], [place], [address], 04/29/2020 19:22:22 04/27/20 20 04/29/2020 bacte rial [...] [address], [place] [address] , Faustino Jackson ra, DO, Labor atory [...] chelsey resul ts of [place] or [place] are deter mined by calcu latin [...] e libby cteri stics deter mined by [employer] Patho Inspirato d/b/a PathG rou. It has not been clear ed or appro kwaku by the U.S. Food and Drug Admin istra tion. The FDA has deter mined that such clear ance or appro gemini is not neces dilma. Perti nent refer ence inter vals are avail able from the labor atory on reque st. Test( s) perfo rmed by Asskissnofrog iatSyros Pharmaceuticals Patho [employer], [employer], d/b/a PathG roup, [address], [place] [address] , Faustino Jackson ra, DO, Labor atory Direc tor. Not Available [facility] ([facility]) [address], [place], [address], 04/29/2020 19:22:22 04/27/20 20 04/29/2020 bacte rial [...] ing error . Test perfo rmed by [employer] Patho Inspirato, d/b/a PathG roup, [address], [place] [address] , Faustino Jackson ra, , Labor atory [...] chelsey resul ts of [place] or [place] are deter mined by calcu latin [...] e libby cteri stics deter mined by [employer], [employer] d/b/a PathRob rouyung. It has not been clear ed or appro kwaku by the U.S. Food and Drug Admin istra tion. The FDA has deter mined that such clear ance or appro gemini is not neces dilma. Perti nent refer ence inter vals are avail able from the labor atory on reque st. Test( s) perfo rmed by [employer] Patho [employer], [employer], d/b/a PathRob rouyung, [address], [facility] [place] [address] , Faustino Jackson ra, DO, Labor atory Dire tor. Not Available [facility] ([facility]) [address] [facility] [address], [place], [address], 04/29/2020 19:22:22 04/27/20 20 04/29/2020 HPV DNA, high- risk HPV high risk NOT DETECT ED normal The human papil lomav irus (HPV) High Risk Blayne madrigal is an FDA-a pprov ed in-vi tro ampli fied nucle ic acid test for the quali tativ e detec tion of E6/E7 viral mRNA. [facility] ts shoolegario d be corre lated with bela nt prese ntati on, histo ry, cervi stephen cytol ogy and other clini stephen and labor atory findi ngs. See https ://Histogen/s ites/ defau lt/fi les/2 018-0 3/AW- 24464 _002_ 01.pd f for latasha madrigal. Test perfo rmed by [facility]oc [facility], d/b/a PathG rou, [address] [place], [place] [address], [place] [address] , Faustino Jackson ra, DO, Labor atory Dire tor. Not Available [facility] ([facility]) [facility] [facility] [address], [place], [address], 04/29/2020 19:22:23 04/27/20 20 04/30/2020 surgi stephen [...] ical servi celso provi ded by Ass iatSyros Pharmaceuticals Patho Inspirato, d/b/a Carina wright, [address] [place] [address] Jason Alvarez MD, Labor Weatlas. Case revie wed and diagn osis rende red at Ass [employer]al Patho Inspirato, d/b/a PathRob wright, [address], [place] [address] Kin Duran MD, Labor Weatlas. CONFI DENTI AL Not Available [facility] ([facility]) [address], [place], [address], 04/30/2020 09:54:56 Result Notes None recorded. Procedures Surgical History Date Name Laterality Status Provider Name and Address Organization Details Recorded Time 08/22/20 20 Most Recent Bone Density completed [facility] 04/15/2021 13:40:28 04/27/20 20 Vulvar Biopsy completed DEANN Gonzalez-BC [address], [place], [address], [facility] 04/27/2020 15:18:52 04/27/20 20 Date of Last Pap Smear completed [facility] 08/30/2021 13:05:38 04/27/20 20 biopsy of vulva completed [facility] 08/30/2021 11:03:20 08/18/20 19 completed [facility] 04/15/2021 13:40:28 07/28/20 19 Date of Last Colonoscopy completed [facility] 04/15/2021 13:40:28 Tonsillectomy completed [facility] 04/27/2020 13:59:20 Dilation and Curettage completed [facility] 04/27/2020 13:59:24 Tubal Ligation completed [facility] 04/27/2020 13:59:30 Imaging Results None recorded. Procedure Notes None recorded. Medical Equipment None Reported. Allergies Allergen ID Allergen Name Allergen Category Reaction Reaction Severity Criticality Documentation Date Start Date Code Code System Note Provider Name and Address Organization Details Recorded Time 1649 Iodinated contrast media (substanc e) medicatio n Not available Not available Not available 04/27/2020 00973 2003 SNOMED Roopa Hassan [facility] 0 13:55:31 Medications Name Sig [...] Updated DateTime 04/15/2021 157.48 cm 27.4 kg/m2 76927.86 g 151 mm[Hg] 86 mm[Hg] Faina Lee [facility] 1 13:40:19 Date Recorded Body height Body mass index (BMI) Body weight Systolic blood pressure Diastolic blood pressure Provider Name and Address Organization Details Last Updated DateTime 05/26/2020 157.48 cm 27.1 kg/m2 62183.67 g 140 mm[Hg] 82 mm[Hg] Roopa Hassan [facility] 0 11:44:30 Date Recorded Body weight Body mass index (BMI) Body height Systolic blood pressure Diastolic blood pressure Provider Name and Address Organization Details Last Updated DateTime 06/10/2021 68004.08 g 26.9 kg/m2 157.48 cm 132 mm[Hg] 78 mm[Hg] Iman Pond [facility] [address], [place], [address] 1 14:23:54 Date Recorded Body height Body mass index (BMI) Body weight Systolic blood pressure Diastolic blood pressure Provider Name and Address Organization Details Last Updated DateTime 08/18/2020 157.48 cm 26.9 kg/m2 39526.08 g 132 mm[Hg] 62 mm[Hg] Roopa Hassan [facility] 0 10:58:27 Date Recorded Systolic blood pressure Diastolic blood pressure Provider Name and Address Organization Details Last Updated DateTime 08/30/2021 124 mm[Hg] 76 mm[Hg] Iman Pond [facility] [address], [place], [address], [facility] 08/31/2021 09:39:00 Date Recorded Body height Body mass index (BMI) Body weight Provider Name and Address Organization Details Last Updated DateTime 08/30/2021 157.48 cm 27.1 kg/m2 49369.67 g Faina Howard [facility] 08/30/2021 15:17:51 Social History Question Answer Notes LastModified by Organizat ion Details LastModified Time Tobacco Smoking Status Never Smoker Faina Howard [facility] 08/30/2021 15:18:16 Do You Have An Advance Directive? No Information n ot available 04/15/2021 Are You Blind Or Do [...] Or The Highest Degree You Have Received? [id number] Information not available 04/15/2021 Are There Any [...] Functional Status Question Answer Note LastModified by Organizat ion Details LastModified Time Do you use any illicit or recreational drugs? No Information not available 04/15/2021 What is your level of alcohol consumption? Occasional Information not available 04/15/2021 Are you able to walk? YESWOREST Information not available 04/15/2021 What is your occupation? Retired Information not available 04/15/2021 What is your exercise level? None Information not available 04/15/2021 Mental Status Question Answer Note LastModified by Organization D etails LastModified Time Do you feel stressed (tense, restless, nervous, or anxious, or unable to sleep at night)? [id number] Information not available 08/30/2021 Family History Relationship Description Onset Age of this Age Resolved Age Notes LastModified by Organization Details LastModified Time Father Asthma [email or web address] Not available 13:56:48 Father Carcinoma in situ of colon [email or web address] Not available 2020 14:59:31 Father Heart disease [email or web address] Not available 2019 13:57:31 Father Diabetes mellitus [email or web address] Not available 2019 13:57:42 Father Hypercholest erolemia [email or web address] Not available 2019 13:57:55 Father Hypertensive disorder [email or web address] Not available 2019 13:58:19 Maternal Grandfather Carcinoma in situ of breast [email or web address] Not available 2020 14:59:31 Maternal Grandfather Hypercholest [...] 2019 13:58:57 Maternal Aunt Suspected ovarian cancer [email or web address] Not available 2020 14:59:31 Maternal Aunt Malignant [...] SNOMED-CT Code Diagnosis ICD10 Code Diagnosis Note [id number] Iman Pond [facility] [address] [address] 04/27/2020 13:49:58 04/27/2020 15:30:27 Atrophic vaginitis 21940647 N95.2 Likely a form of Lichen's is [...] 4wks. Counseled on use of mycolog ointment/V CGs/and then at next f/u we can decide if we also need to add vag estrogen therapy. NEW Time spent in visit is a total of 32 mins with at least 50% of visit consisting of counseling and review of plan of care NOT including time spent on procedure. [id number] Iman Pond [facility] [address],[place] [address] 05/26/2020 11:30:44 05/26/2020 12:19:08 Genital lichen sclerosus [id number] L90.0 We discussed dx of LS. handouts [...] review of plan of care. Atrophic vaginitis 63461 000 N95.2 N94.12 Counseled on medication R/B's, Most common side effects, & use. All questions were answered to patient satisfacti on. Start Estrace PV f/u x 3mos [id number] Iman Pond [facility] [address],[place] [address] 08/18/2020 10:44:34 08/18/2020 11:47:14 Genital lichen sclerosus 345194564 L90.0 We agreed to continue mycolog therapy as prn since well controlled . RF's sent Will f/u yearly or sooner if any changes. Time spent in visit is a total of 15 mins with at least 50% of visit consisting of counseling and review of plan of care. [id number] Iman Pond [facility] [address],[place] [address] 04/15/2021 13:28:28 04/16/2021 14:16:30 Genital lichen sclerosus [id number] L90.0 We agreed to continue mycolog therapy as prn since well controlled . RF's sent Will f/u yearly or sooner if any changes. Time spent in visit is a total of 15 mins with at least 50% of visit consisting of counseling and review of plan of care. Atrophic vaginitis 13369 000 N95.2 N94.12 Counseled on medication R/B's, Most common side effects, & use. All questions were answered to patient satisfacti on. Start Estrace PV f/u x 3mos [id number] Iman Pond [facility] [address],[place] [address] 06/10/2021 14:31:36 06/11/2021 00:17:18 Genital lichen sclerosus 747065119 L90.0 N95.2 Trial of using crisco with [...] this patient s visit, including available hand retail pos specialist upon arrive, temperatur e check and being asked a series of screening questions. All staff wore face coverings during this encounter, as well as provided additional cleaning and sanitizing of all surfaces, including countertop s, pens, chairs, door handles, light switches, etc, prior to and following the patient s visit. [id number] Iman Pond [facility] [address],[place] [address] 08/30/2021 14:57:48 08/31/2021 13:00:13 Genital lichen sclerosus [id number] L90.0 N95.2 Today, we discussed her current progress which is the same as her last visit.Her insurance is changing & our office is no longer on her plan.We had previously discussed a referral to Vulvar care clinic in [facility] which I believe would be her best option for further evaluation & recommenda tions for this issue.She is in agreement with this option.Ref nola thompson.Adv ised her to have her new insurance informatio n available when tower air traffic control specialist contacts her.She will continue her current [...] this patient s visit, including available hand retail pos specialist upon arrive, temperatur e check and being [...] Name 05/26/2020 1 [employer] (HMO) Mami Richard [id number] Mami Richard 04/15/2021 1 [employer]NA - GOLD PLUS (MEDICARE REPLACEMENT/A DVANTAGE - HMO) Mami Richard [id number] Mami Richard 06/10/2021 [employer]NA - GOLD PLUS (MEDICARE REPLACEMENT/A DVANTAGE - HMO) Mami Richard [id number] Mami Richard 06/10/2021 1 [employer]NA - GOLD PLUS (MEDICARE REPLACEMENT/A DVANTAGE - HMO) Mami Richard [id number] Mami Richard 08/30/2021 [employer]NA - GOLD PLUS (MEDICARE REPLACEMENT/A DVANTAGE - HMO) Mami Richard [id number] Mami Richard 08/30/2021 1 [employer]MANA - GOLD PLUS (MEDICARE REPLACEMENT/A DVANTAGE - HMO) Mami Richard [id number] Mami Richard Notes Date Note Type Note Provider Name and Address Organization Details Recorded Time 05/26/2020 text/html Patient is here today for F/U of recent vulvar bx results. [facility] [address] [place], [address], [facility] 05/26/2020 12:23:05 08/18/2020 text/html Patient is here today for a medicaton check of mycolog ointment for Lichen's sclerosis. She voices goals of therapy have been met with use of this therapy. She denies neg side effects. She is eating, drinking, sleeping well; moods are stable & periods are well regulated. Appropriate to continue this medication. [facility]man Pond [facility] [address] [place], [address], [facility] 08/18/2020 11:33:45 04/15/2021 text/html Here today [...] and LS is biggest complaints. Iman Pond [facility] [address] [place], [address], [facility] 04/27/2021 16:09:31 06/10/2021 text/html Here today for medication f/u & has additional concern of rectal skin irritation. Iman Pond [facility] [address] [place], [address], [facility] 06/22/2021 14:26:01 08/30/2021 text/html Here today for medication check for lichen Sclerosis of vulva & perianal skin. Iman Pond [facility] [address] [place], [address], [facility] 08/31/2021 09:49:30 OBGyn Episode Ob Episode Information Episode Created Date Number of Fetuses Patient Bloodtype Patient rh Status Prepregnancy Weight lbs Domestic Partner Domestic Partner Phone Father Name [place] Status 04/27/20 1 CLOSED Fetus Data First [...] Domestic Partner Domestic Partner Phone Father Name [place] Status 04/27/20 1 CLOSED Fetus Data First [...] Domestic Partner Domestic Partner Phone Father Name [place] Status 04/27/20 1 CLOSED Fetus Data First [...]
--- NOTE | 2025-02-13 07:25 | WPDHPUPDATE1 ---
History and Physical Update Update Date/Time: 02/13/25 07:25 History and Physical has been reviewed, including an updated exam of the patient. There are NO changes in the patient's condition. Risks, benefits, and alternatives have been discussed and questions answered. Patient agrees to proceed with procedure.
[2025-02-13 09:00] VITALS: BMI 28.9
[2025-02-13 09:44] VITALS: BP 140/57; PULSE 79; RESP 16; TEMP 36.8; O2SAT 98
--- NOTE | 2025-02-13 10:14 | WPDANESEPPF ---
Anes - Initial Pre Proc Eval Procedure: Operation Date: 02/13/25 11:30 Proposed Procedures p Excisional Biopsy Mid Back Cyst - Kassandra Khan MD Date/Time: 02/13/25 10:14 Surgeon: Kassandra Khan MD Pre Op Diagnosis: mid back infected cyst Patient Data Age: 69 Gender: F Height: 1.59 m Weight: 73 kg Last Vital Signs Temp 98.2 F 02/13/25 09:44 Pulse 79 02/13/25 09:44 Resp 16 02/13/25 09:44 BP 140/57 L 02/13/25 09:44 Pulse Ox 98 02/13/25 09:44 Allergies Allergy/AdvReac Type Severity Reaction Status Date / Time iohexol (From contrast - CT, AdvReac FROZEN Verified 02/13/25 09:12 X-RAY) SHOULDERS tramadol AdvReac ITCHING Verified 02/13/25 09:12 Home Medications ?Medication ?Instructions ?Recorded ?Confirmed ?Type aspirin 81 mg tablet,delayed 81 mg PO DAILY 06/21/22 02/13/25 History release ergocalciferol (vitamin D2) 1,250 1,250 mcg PO WEEKLY #12 caps 06/22/22 02/13/25 Rx mcg (50,000 unit) capsule (Vitamin D2) fluocinonide 0.05 % topical 1 applic topical BID PRN itching 02/07/25 02/13/25 History ointment levothyroxine 100 mcg tablet 100 mcg PO QAM 02/07/25 02/13/25 History liothyronine 5 mcg tablet 5 mcg PO BID 02/07/25 02/13/25 History amoxicillin 875 mg-potassium 1 tablet PO Q12H 02/13/25 02/13/25 History clavulanate 125 mg tablet Patient hx anesthesia problems: none Family hx anesthesia problems: none Results Review: All pre-operative results and documents have been reviewed as part of the pre-operative evaluation. [facility] Past Medical History Medical History Osteopenia Overweight (BMI 25.0-29.9) Chronic bilateral low back pain with bilateral sciatica Gastroesophageal reflux disease without esophagitis Mixed hyperlipidemia Hypothyroidism Anemia Migraine Surgical History Surgical History Hx of shoulder surgery 2019 History of back surgery 2004 2018 Hx of neck surgery 2002 Hx of tubal ligation 1981 H/O dilation and curettage (~1978) History of tonsillectomy (~1972) Family History Family History Mother Patient's mother is , Onset Age: 35 Hypertension Heart disease Father Patient's father is in good health Alcoholism Asthma Carcinoma of colon Hypertension Heart disease Cerebrovascular accident Sibling Patient's sister is in good health Patient's brother is , Onset Age: 30 Alcoholism Cerebrovascular accident Daughter Breast cancer Cervical cancer Diabetes mellitus Grandparent Thyroid disorder Social History Social History Social History: quit smoking 6 years ago Years smoked: 42 Smoking status: Former smoker Tobacco type: cigarettes Second hand tobacco smoke exposure: No Smoking end date: 09/18/17 Alcohol intake: current Alcohol use details: 1 drink yearly Substance use: never Substance use type: does not use Do You Feel Safe in your Home?: Yes Lack of Transportation: No Lack of Food: Never True Current Housing: I Have Housing Concerned About Future Housing: No Difficulty Paying Gas/Electric Bills: No Difficulty Paying for Meds: No Currently Unemployed: No Education: High School Diploma/GED Difficulty w/ Childcare or Family Care: No Living arrangements: alone Occupation/Education: retired Gender identity (if verbalized by the patient): Female Spiritual care concerns: No Agree to blood products: Yes Anes - Eval Final PreProcedure Day of Procedure 02/13/25 10:14 Patient weight: overweight Lungs: normal air movement Airway: Mallampati scale class II and special considerations (Missing many teeth in the post aspect upper and lower. ) Neurological: alert and oriented Last oral intake: >/= 8 hours ASA classification: III Emergent: no Anesthetic plan: proceed Anesthesia type and monitoring: general LMA and standard monitoring Results Review: All pre-operative results and documents have been reviewed as part of the pre-operative evaluation. BMI 29, TRACI on CPAP, ex long time smoker quit 2017. Informed Consent: The patient's anesthetic plan and its attendant risks and benefits were discussed with the patient/family/POA. Questions were solicited and answers provided to the satisfaction of the patient/family/POA.
[2025-02-13] MEDS: ceFAZolin 2 GM/D5W 50 ML 2 GM/50 ML BAG IVPB (10:48)
[2025-02-13] MEDS: BUPIVACAINE/EPINEPHRINE 0.5% 10 ML VIAL 30 ML INFILTRATE (11:09)
--- NOTE | 2025-02-13 11:13 | S_PTH ---
PATIENT: Mami Richard LOC: [facility] U#:[id number] AGE/SX: 69/F ROOM: RE02/13/[address]: Kassandra Khan MD : 1955 BED: DIS: 02/13/2025 SPEC #: [id number] RECD: 02/13/25 13:08 STATUS: FORTUNATO REKenia #: [id number] PACO: 02/13/25 11:[address]: Kassandra Khan DEPT: [facility] Surgical RECD BY: Rebecca Miller ENTERED: 02/13/25 13:08 SP TYPE: Surgical OTHR DR: Vanessa Patterson, Tissues: A - Cyst Procedures: Hematoxylin and Eosin Stain Gross and Microscopic Level 4
[2025-02-13 11:31] VITALS: BP 130/53; PULSE 96; RESP 10; TEMP 36.7; O2SAT 100
[2025-02-13] MEDS: LACTATED RINGERS 1,000 ML 30 ML IV CONT (11:31)
--- NOTE | 2025-02-13 11:32 | W.PM.PROC2 ---
Procedure Note - Detailed Date of Procedure 02/13/25 Pre-op Diagnosis mid back infected cyst Post-op Diagnosis Same Procedure Performed Excisional biopsy mid back cyst Surgeon Kassandra Khan MD Anesthesia General and Local Indications 69-year-old female initially presented to the office with an infected mid back cyst. Patient has been treated in the interim with antibiotics and now set up for interval excisional biopsy. Findings 3 x 3 cm cyst in the mid back Description of Procedure The patient was taken the operating room and placed in the lateral position. After adequate induction of general anesthesia, the patient was prepped and draped in the normal sterile fashion. Time-out was then done to verify the patient's identity, as well as the procedure being performed. I began by localizing the area and around the cyst in the midback. This measured approximately 3 x 3 cm. Once adequately localized, I made an elliptical incision around the cyst to include the dermis overlying the cyst. Of note, there was a punctate opening in the dermis from previous drainage. The incision was then carried down into the subcutaneous tissue. I then encountered this cyst in the subcutaneous tissue. I was able to bluntly and sharply dissect completely around the cyst. The cyst was then excised in full. It will now be sent to pathology for further review. I then gained hemostasis with the Bovie cautery. The cavity was washed out and no other pathology was noted. Further local anesthetic was placed. The subcutaneous tissue was then closed with 3-0 Vicryl suture. The skin was closed with 4-0 Monocryl subcuticular suture. The patient tolerated the procedure well and was extubated postoperatively. She will be transferred to the recovery room in stable condition. Estimated Blood Loss 5 Pathology Yes Complications No immediate complications Condition Stable Disposition PACU [facility] Billing Surgery - Charge Forward: Surgery Billing
[2025-02-13 11:45] VITALS: BP 133/51; PULSE 88; RESP 20; O2SAT 98
[2025-02-13 12:00] VITALS: BP 148/63; PULSE 87; RESP 19; O2SAT 97
[2025-02-13 12:09] VITALS: BP 145/52; PULSE 82; RESP 18
[2025-02-13 12:35] VITALS: BP 139/53; PULSE 80; RESP 16
== END 2025-02-13 12:45 | disposition home or self-care (01) ==
PROVIDERS: PCP Family Medicine; Visit Provider Surgery
PROC: (CPT 11406; principal; 2025-02-13 11:30)
DX: L72.0 Epidermal cyst (principal); E78.2 Mixed hyperlipidemia; E03.9 Hypothyroidism, unspecified; D64.9 Anemia, unspecified; K21.9 Gastro-esophageal reflux disease without esophagitis; G47.33 Obstructive sleep apnea (adult) (pediatric); M85.88 Other specified disorders of bone density and structure, other site; G89.29 Other chronic pain; M54.42 Lumbago with sciatica, left side; M54.41 Lumbago with sciatica, right side; Z79.82 Long term (current) use of aspirin; Z99.89 Dependence on other enabling machines and devices; Z98.890 Other specified postprocedural states; Z98.1 Arthrodesis status; Z98.51 Tubal ligation status; Z87.891 Personal history of nicotine dependence; Z80.0 Family history of malignant neoplasm of digestive organs; Z80.3 Family history of malignant neoplasm of breast; Z80.49 Family history of malignant neoplasm of other genital organs; Z82.49 Family history of ischemic heart disease and other diseases of the circulatory system
CPT/HCPCS: 11406; 12032; 88305; J0690; J1100; J1171; J2250; J2405; J2704; J7120

== ENCOUNTER 2025-05-02 15:57 | Outpatient (CLI) | payer MEDICARE, MEDICAID, SELFPAY ==
--- NOTE | ~2025-05-02 | MR_ITS ---
MRI of the lumbar spine Clinical History: Intervertebral discs disorder Technique: Axial T2-weighted images, and sagittal T1-weighted, T2-weighted, and STIR images were acqu ired. Findings: There is posterior fusion from L3 to L4, bilateral rods and transpedicular screws present. Associated laminectomy defects at L3-L4 noted. There are interbody fusion devices at the L3-L4 and L4 -L5 disc spaces. No acute fracture or subluxation seen. No suspicious bone marrow signal reality seen . At L1-L2, there is mild disc bulge with mild facet hypertrophy. No spinal canal stenosis or neural fo raminal narrowing. At L2-L3, there is severe degenerative disc narrowing. There is diffuse disc bulge with superimposed central disc protrusion and moderate facet arthropathy. There is severe spinal canal stenosis/thecal sac compression, with moderate to advanced bilateral neural foraminal narrowing. At L3-L4 and L4-L5, there is no disc bulge or herniation. There is no spinal canal stenosis at these levels, without evidence of prior posterior decompression. Neural foramina are preserved. At L5-S1, there is no significant disc bulge or herniation. There is moderate to advanced facet arthr opathy. No central canal stenosis or neural foraminal narrowing. Paravertebral soft tissues are unremarkable, aside from expected postoperative change. Impression: Severe degenerative spondylosis at L2-L3, as detailed above. Postoperative change from L3 through L4, as detailed above. Reviewed, dictated and finalized at [facility]. Impression: Severe degenerative spondylosis at L2-L3, as detailed above. Postoperative change from L3 through L4, as detailed above.
== END 2025-05-02 15:58 | disposition home or self-care (01) ==
LOC: MICIMG 15:58
PROVIDERS: Visit Provider Family Medicine
DX: M51.9 Unspecified thoracic, thoracolumbar and lumbosacral intervertebral disc disorder (principal); M47.896 Other spondylosis, lumbar region
CPT/HCPCS: 72148